=== PATIENT | female | born 1950 | race Caucasian/White ===

== ENCOUNTER 2016-08-13 15:08 | Emergency (ER) | payer MEDICARE ==
[2016-08-13] MEDS ORDERED: methylPREDNISolone Sod Succ/PF 125 MG/2 ML VIAL ONE (15:28)
[2016-08-13 15:43] LABS: #Basophils 0.1 thou/uL (0.0-0.2); #Eosinphils 0.1 thou/uL (0.0-0.7); #Lymphocytes 2.2 thou/uL (1.20-3.40); #Monocytes 0.7 thou/uL (0.11-0.59); #Neutrophils 8.5 thou/uL (1.40-6.50); %Basophils 1.1 % (0.0-1.0); %Eosinophils 1.2 % (0.0-10.0); %Monocytes 6.1 % (0.0-10.0); Hematocrit 43.1 % (36.0-47.0); Red Blood Cell (RBC) Count 4.42 mill/uL (4.20-5.40); White Blood Cell (WBC) Count 11.8 thou/uL (4.8-10.8)
[2016-08-13 16:00] LABS: ALT (SGPT) 13 U/L (0-55); AST (SGOT) 15 U/L (5-34); Alkaline Phosphatase 55 U/L (40-150); Anion Gap 12 mmol/L (10-20); BUN (Urea Nitrogen) 11 mg/dL (9.8-20.1); Bilirubin, Total 0.6 mg/dL (0.2-1.2); CK (CPK) 243 U/L (29-168); Calc. Creatinine Clearance 0 mL/min (70-130); Calcium 9.1 mg/dL (7.8-10.44); Carbon Dioxide 27 mmol/L (23-31); Chloride 108 mmol/L (98-107); Estimated GFR-MDRD 54; Protein, Total 6.9 g/dL (5.8-8.1)
[2016-08-13 16:01] LABS: Troponin I 0.013 ng/mL (< 0.028)
--- NOTE | 2016-08-13 17:07 | ERRECORD ---
[facility] EMERGENCY RECORD HPI COPD (15:28 MBRI) CHIEF COMPLAINT: Patient presents for evaluation of cough, Patient presents for evaluation of dyspnea, Patient presents for evaluation of wheezing, Patient presents for evaluation of Sent by her PMD for dyspnea. HISTORIAN: History provided by patient. LOCATION: Symptoms are generalized. QUALITY: Symptoms described as tightness, Pain is dull in nature, described as tightness reported., Described as similar to previous episodes. SEVERITY: Maximum severity of symptoms moderate, Currently symptoms are moderate. TIME COURSE: Gradual onset of symptoms, Date and time of onset was 5 days ago. ASSOCIATED WITH: No associated chest pain, Associated with cough, Associated with fever, Associated with increased inhaler use, No associated orthopnea, No associated upper respiratory infection, No associated weakness, Associated with history of chronic obstructive pulmonary disease, No associated history of congestive heart failure, Denies any other complaints. EXACERBATED BY: Patient's condition exacerbated by nothing. RELIEVED BY: Patient's condition relieved by oxygen, Patient's condition relieved by Pt uses nebs and meds at home daily and used her meds this am per pt. RISK FACTORS: No pulmonary embolism risk factors, Coronary artery disease risk factors, include smoking. ROS (15:28 MBRI) CONSTITUTIONAL: Historian reports chills, reports fatigue, reports fever, reports malaise. EYES: Historian denies eye pain, reports eye redness, denies eye discharge, reports itching. ENT: Historian denies rhinorrhea, denies sore throat. CARDIOVASCULAR: Historian denies chest pain, no radiation, Historian denies dyspnea on exertion, denies edema, denies orthopnea, denies syncope, denies palpitations. RESPIRATORY: Historian reports cough, reports shortness of breath, denies sputum, denies stridor, reports wheezing. GI: Negative gastrointestinal review of systems, Historian denies abdominal pain, denies diarrhea, denies nausea, denies vomiting. GENITOURINARY FEMALE: Historian denies dysuria, denies frequency, denies hematuria. MUSCULOSKELETAL: Historian denies injury, Denies any musculoskeletal pain. SKIN: Negative skin review of systems, Historian denies skin changes. NEUROLOGIC: Negative neurologic review of systems, Historian denies focal weakness, denies sensory changes. HEMO/LYMPHATIC: Historian denies abnormal blood clotting, denies &a-1R&a+25V*p+0X*v0234K*c202B*c15G*c2P*p-0X&a-25V&a+1R Name: Peggy Kerr : 1950 F66 MedRec: [id number] AcctNum: [id number] Prepared: Sravani Aug 16, 2016 10:53 by Interface Page 1 of 5 pMD [facility] EMERGENCY RECORD easy bruising. PAST MEDICAL HISTORY MEDICAL HISTORY: Flu vaccine not up to date, Pneumococcal vaccine up to date, Date of immunization: 2013, Past medical history includes history of hypertension, which has been treated, Patient is compliant, Past medical history includes pulmonary disease, chronic obstructive pulmonary disease. (16:35 MBRI) Flu vaccine not up to date, Pneumococcal vaccine up to date, Date of immunization: 2013, Past medical history includes history of hypertension, which has been treated, Patient is compliant, Past medical history includes pulmonary disease, chronic obstructive pulmonary disease. (16:38 LGIB) FEMALE SURGICAL HISTORY: Surgical history of cholecystectomy, laparoscopic, Surgical history of tubal ligation. (16:35 MBRI) Surgical history of cholecystectomy, laparoscopic, Surgical history of tubal ligation. (16:38 LGIB) PSYCHIATRIC HISTORY: Psychiatric history includes, anxiety, depression. (16:35 MBRI) Psychiatric history includes, anxiety, depression. (16:38 LGIB) SOCIAL HISTORY: Patient denies alcohol use, Prior drug abuse, none at present time, Patient currently uses tobacco, smokes cigarettes, daily, Patient smokes 1/2 packs per day, SMOKED FOR 50 YEARS, Lives at home, alone. (16:35 MBRI) Patient denies alcohol use, Infrequent drug use, Last used: 2 WEEKS AGO, Patient currently uses tobacco, smokes cigarettes, daily, Patient smokes 1/2 packs per day, SMOKED FOR 50 YEARS, Lives at home, alone. (16:38 LGIB) FAMILY HISTORY: Paternal history of cardiac disease:, congestive heart failure, Paternal history of diabetes:, Paternal history of hypertension:, Sibling history of diabetes:, 2 BROTHERS, Sibling history of malignancy, 2 BROTHERS. (16:35 MBRI) Paternal history of cardiac disease:, congestive heart failure, Paternal history of diabetes:, Paternal history of hypertension:, Sibling history of diabetes:, 2 BROTHERS, Sibling history of malignancy, 2 BROTHERS. (16:38 LGIB) KNOWN ALLERGIES Ceclor: Reaction: Anaphylaxis, - AND TINGLING Penicillins: Reaction: Anaphylaxis Toradol: Reaction: Anaphylaxis, Severity: Severe, Source: Patient CURRENT MEDICATIONS (16:15 LGIB) lisinopril: TABLET : Strength - 10 mg : ORAL Patient Dose: 10 mg Oral once a day (in the morning). simvastatin: TABLET : Strength - 20 mg : ORAL &a-1R&a+25V*p+0X*w8796L*c202B*c15G*c2P*p-0X&a-25V&a+1R Name: Peggy Kerr : 1950 F66 MedRec: [id number] AcctNum: [id number] Prepared: Sravani Aug 16, 2016 10:53 by Interface Page 2 of 5 pMD [facility] EMERGENCY RECORD Patient Dose: 20 mg Oral once a day (at bedtime). Cymbalta: CAPSULE,DELAYED RELEASE (ENTERIC COATED) : Strength - 20 mg : ORAL Patient Dose: 20 mg Oral 3 times a day. clonazePAM: TABLET : Strength - 0.5 mg : ORAL Patient Dose: 0.5 mg Oral 2 times a day. Symbicort: HFA AEROSOL WITH ADAPTER (GRAM) : Strength - 160 mcg-4.5 mcg/actuation : INHALATION Patient Dose: 1 puff(s) Inhaler 2 times a day. Spiriva with HandiHaler: CAPSULE, WITH INHALATION DEVICE : Strength - 18 mcg : INHALATION Patient Dose: 1 puff(s) Inhaler once a day. albuterol sulfate: VIAL, NEBULIZER (EA) : Strength - 2.5 mg/0.5 mL : INHALATION Patient Dose: 1 ea Nebulize As Needed. ProAir HFA: HFA AEROSOL WITH ADAPTER (GRAM) : Strength - 90 mcg : INHALATION Patient Dose: 2 puff(s) Inhaler every 4 hours prn. Mucinex DM: TABLET,EXTENDED RELEASE MULTIPHASE 12 HR : Strength - 1,200 mg-60 mg : ORAL Patient Dose: 1 tab(s) Oral As Needed. Medrol (Robert): TABLET, DOSE PACK : Strength - 4 mg : ORAL Patient Dose: 1 tab(s) Oral once a day. VITAL SIGNS VITAL SIGNS: BP: 142/79, Pulse: 95, Resp: 24, O2 sat: 95 on 2L Oxygen, Time: 08/13/2016 15:09. (15:09 LGIB) Temp: 98.3 (Oral), Time: 08/13/2016 16:13. (16:13 LGIB) BP: 148/96, Pulse: 100, Resp: 22, Temp: 98.2 (Oral), Pain: 0, O2 sat: 94 on 2L Oxygen, Time: 08/13/2016 16:23. (16:23 LSMI) BP: 144/84, Pulse: 94, Resp: 20, Temp: 98.2 (Oral), Pain: 0, O2 sat: 96 on 2L Oxygen, Time: 08/13/2016 16:40. (16:40 LSMI) PHYSICAL EXAM (15:28 MBRI) CONSTITUTIONAL: Vital Signs Reviewed, Normal pulse oximetry, Patient appears non toxic, Patient appears pain free, Patient, oriented to person, oriented to place, responsive to verbal stimuli, Nursing notes reviewed, frail appearing elderly female. HEAD: Head exam included findings of head atraumatic, normocephalic. EYES: Eye exam included findings of eyelids normal to inspection, Pupils equally round and reactive to light, Extraocular muscles intact. ENT: Ear exam normal, external ear normal, tympanic membranes normal, Pharynx exam normal. &a-1R&a+25V*p+0X*w0473J*c202B*c15G*c2P*p-0X&a-25V&a+1R Name: Peggy Kerr : 1950 F66 MedRec: [id number] AcctNum: [id number] Prepared: SatAug 16, 2016 10:53 by Interface Page 3 of 5 pMD [facility] EMERGENCY RECORD NECK: Neck exam normal, no cervical adenopathy, no tenderness. RESPIRATORY CHEST: Respiratory exam included findings of no respiratory distress, Breath sounds clear, No wheezing, No rales, No rhonchi, Breath sounds diminished, to bilateral upper lobes, to bilateral lower lobes, Chest exam included findings of chest movement symmetrical, Chest expansion equal, no tenderness. CARDIOVASCULAR: Cardiovascular exam included findings of, rate tachycardic, rhythm regular, Heart sounds normal, normal S1, normal S2, no murmurs, Carotids normal, Pedal pulses normal. ABDOMEN FEMALE: Abdominal exam included findings of abdomen nontender, Bowel sounds normal, no peritoneal signs, no rigidity, no guarding, no rebound. BACK: Back exam included findings of normal inspection, no tenderness. UPPER EXTREMITY: Upper extremity exam included findings of inspection normal, Radial pulse normal, no cyanosis, no clubbing, no edema. LOWER EXTREMITY: Lower extremity exam included findings of inspection normal, femoral pulses normal, no cyanosis, no clubbing, no edema, no tenderness noted. NEURO: Neuro exam findings include patient oriented to, person, place, Speech normal, Cranial nerves intact, no focal motor deficits, no focal sensory deficits. SKIN: Skin exam included findings of skin warm, dry, and normal in color. EKG INTERPRETATION (15:39 MBRI) 12 LEAD EKG INTERPRETATION: Interpretation: normal EKG, Conduction normal, ST segments normal, T waves normal, Rudyard normal, Other findings include:, age undetermined ant infarct, Clinical impression: Normal EKG. RADIOLOGYINTERPRETATION (16:29 MBRI) CHEST: Chest films negative, no infiltrates. FUEL DISTRIBUTION SYSTEM OPERATOR: Preliminary review of x-rays by, ED Physician. MEDICATION ADMINISTRATION SUMMARY Drug Name: *DuoNeb, Dose Ordered: 3 mL, Route: Nebulize, Status: Given, Time: 16:10 08/13/2016, Drug Name: methylPREDNISolone sodium succ injection, Dose Ordered: 125 mg, Route: IV Push, Status: Given, Time: 15:43 08/13/2016, Drug Name: *DuoNeb, Dose Ordered: 3 mL, Route: Nebulize, Status: Given, Time: 15:30 08/13/2016, *Additional information available in notes, Detailed record available in Medication Service section. DOCTOR NOTES RE-EVALUATION: Routine re-evaluation, after administration of &a-1R&a+25V*p+0X*u7813V*c202B*c15G*c2P*p-0X&a-25V&a+1R Name: Peggy Kerr : 1950 F66 MedRec: [id number] AcctNum: [id number] Prepared: Sravani Aug 16, 2016 10:53 by Interface Page 4 of 5 pMD [facility] EMERGENCY RECORD bronchodilator nebulizer treatments, The patient's condition has improved, increased air movement with decreased wheezing noted. Still some exp wheezing noted in the upper lung yanez. (15:50 MBRI) TEXT: After re-evaluation the patient appears to be resting comfortably. No further resp distress and lung exam is improved. No impending resp failure or airway issues are present at this time. I have discussed the continued treatment with the patient and family and have answered questions. I have discussed the strict reasons for return and follow-up and medication needs have been addressed. The patient is stable for d/c home at this time. (16:30 MBRI) PROBLEM LIST No recorded problems DIAGNOSIS (16:32 MBRI) FINAL: PRIMARY: COPD WITH ACUTE EXACERBATION. PRESCRIPTION (16:33 MBRI) albuterol: AEROSOL (GM) : 90 mcg : INHALATION : Quantity: 1 Unit: inhalation Route: INHALATION Schedule: every 4 hours prn Dispense: 1 May substitute. Refills: No Refills . NOTES: No refills. doxycycline hyclate oral: CAPSULE (HARD, SOFT, ETC.) : 100 mg : ORAL : Quantity: 1 Unit: tab(s) Route: ORAL Schedule: 2 times a day Dispense: 20 May substitute. Refills: No Refills . NOTES: this medication will render your control pills ineffective while you are on them. Use other forms of contraception. No refills. Mucinex DM: TABLET,EXTENDED RELEASE MULTIPHASE 12 HR : 1,200 mg-60 mg : ORAL : Quantity: 1 Unit: tab(s) Route: ORAL Schedule: every 12 hours Dispense: 20 May substitute. Refills: No Refills . NOTES: No refills. predniSONE oral: TABLET : 20 mg : ORAL : Quantity: 3 Unit: tab(s) Route: ORAL Schedule: once a day Dispense: 12 May substitute. Refills: No Refills . NOTES: ^s=No refills No refills. DISPOSITION PATIENT: Disposition Type: Discharge, Disposition: *Discharge Home, Condition: Improved. (16:32 MBRI) Patient left the department. (16:52 LGIB) [place]: LGIB=CADEN Fontana, Emelia LSMI=ROSEANN Wood Leah MBRI=DO Rosas Matthew &a-1R&a+25V*p+0X*[id number]*c202B*c15G*c2P*p-0X&a-25V&a+1R Name: Peggy Kerr : 1950 F66 MedRec: [id number] AcctNum: [id number] Prepared: [facility] Aug 16, 2016 10:53 by Interface Page 5 of 5 pMD MTDD
--- NOTE | 2016-08-13 17:10 | PICIS ---
[facility] EMERGENCY RECORD TRIAGE (SatAug 13, 2016 15:17 LGIB) TRIAGE NOTES: pcp sent over for weakness and diff breathing. (SatAug 13, 2016 15:17 LGIB) PATIENT: NAME: Peggy Kerr, AGE: 66, GENDER: female, : Sat1950, TIME OF GREET: SatAug 13, 2016 15:09, PREFERRED LANGUAGE: Syriac, ETHNICITY: Not or , ECODE BILLING MAP: [facility], SSN: [id number], Zip Code: [address], KG WEIGHT: [phone], PHONE: , , , PERSON ID: [id number], PAYMENT: [employer], PCP: DO OLIVO KRISTEL. (SatAug 13, 2016 15:17 LGIB) COMPLAINT: diff breathing, weak. (SatAug 13, 2016 15:17 LGIB) ADMISSION: URGENCY: 2 Emergent, ADMISSION SOURCE: Home, TRANSPORT: CAR, BED: ER -02. (SatAug 13, 2016 15:17 LGIB) SIRS SCORING: Heart Rate 55-109 (0), Temp range 96.8-101.1 (0), respiratory rate 12-24 (0), Mental Status altered: no (0), Total SIRS Score 0. (16:14 LGIB) PROVIDERS: TRIAGE NURSE: Emelia Fontana RN. (SatAug 13, 2016 15:17 LGIB) PREVIOUS VISIT ALLERGIES: Ceclor, Penicillins, Toradol. (SatAug 13, 2016 15:17 LGIB) Ceclor, Penicillins, Toradol. (16:38 LGIB) KNOWN ALLERGIES Ceclor: Reaction: Anaphylaxis, - AND TINGLING Penicillins: Reaction: Anaphylaxis Toradol: Reaction: Anaphylaxis, Severity: Severe, Source: Patient CURRENT MEDICATIONS (16:15 LGIB) lisinopril: TABLET : Strength - 10 mg : ORAL Patient Dose: 10 mg Oral once a day (in the morning). simvastatin: TABLET : Strength - 20 mg : ORAL Patient Dose: 20 mg Oral once a day (at bedtime). Cymbalta: CAPSULE,DELAYED RELEASE (ENTERIC COATED) : Strength - 20 mg : ORAL Patient Dose: 20 mg Oral 3 times a day. clonazePAM: TABLET : Strength - 0.5 mg : ORAL Patient Dose: 0.5 mg Oral 2 times a day. Symbicort: HFA AEROSOL WITH ADAPTER (GRAM) : Strength - 160 mcg-4.5 mcg/actuation : INHALATION Patient Dose: 1 puff(s) Inhaler 2 times a day. Spiriva with HandiHaler: CAPSULE, WITH INHALATION DEVICE : Strength - 18 mcg : INHALATION Patient Dose: 1 puff(s) Inhaler once a day. albuterol sulfate: VIAL, NEBULIZER (EA) : Strength - 2.5 mg/0.5 mL : INHALATION Patient Dose: 1 ea Nebulize As Needed. &a-1R&a+25V*p+0X*j5520U*c202B*c15G*c2P*p-0X&a-25V&a+1R Name: Peggy Kerr : 1950 F66 MedRec: [id number] AcctNum: [id number] Prepared: [facility] Aug 16, 2016 10:53 by Interface Page 1 of 13 pMD [facility] EMERGENCY RECORD ProAir HFA: HFA AEROSOL WITH ADAPTER (GRAM) : Strength - 90 mcg : INHALATION Patient Dose: 2 puff(s) Inhaler every 4 hours prn. Mucinex DM: TABLET,EXTENDED RELEASE MULTIPHASE 12 HR : Strength - 1,200 mg-60 mg : ORAL Patient Dose: 1 tab(s) Oral As Needed. Medrol (Robert): TABLET, DOSE PACK : Strength - 4 mg : ORAL Patient Dose: 1 tab(s) Oral once a day. VITAL SIGNS VITAL SIGNS: BP: 142/79, Pulse: 95, Resp: 24, O2 sat: 95 on 2L Oxygen, Time: 08/13/2016 15:09. (15:09 LGIB) Temp: 98.3 (Oral), Time: 08/13/2016 16:13. (16:13 LGIB) BP: 148/96, Pulse: 100, Resp: 22, Temp: 98.2 (Oral), Pain: 0, O2 sat: 94 on 2L Oxygen, Time: 08/13/2016 16:23. (16:23 LSMI) BP: 144/84, Pulse: 94, Resp: 20, Temp: 98.2 (Oral), Pain: 0, O2 sat: 96 on 2L Oxygen, Time: 08/13/2016 16:40. (16:40 LSMI) NURSING ASSESSMENT: RESPIRATORY /CHEST (15:20 LGIB) CONSTITUTIONAL: Complex assessment performed, Patient arrives, via hospital wheelchair, Gait steady, History obtained from patient, Patient cooperative, Patient alert, Oriented to person, place and time, Skin warm, Skin dry, Skin normal in color, Mucous membranes pink, Mucous membranes moist, Patient is well-groomed, Patient complains of diff breathing, weak, sent by PCP for weakness and diff breathing. PAIN: Patient rates pain as 0 out of 10. RESPIRATORY/CHEST: Lungs auscultated, Breath sounds diminished, to bilateral upper lobes, to the right middle lobe, to bilateral lower lobes, Respirations regular, Converses, in short phrases, Neck and chest exam findings include trachea midline, Chest expansion equal, Chest movement symmetrical, no signs of distress, no retractions noted, no cyanosis, no associated cough noted, no associated fever. ENT: Ear assessment findings include ear normal to inspection, Nasal assessment findings include nose normal to inspection, Mouth and throat assessment findings include mouth inspection normal. NURSING PROCEDURE: [facility] (15:20 LGIB) [facility] FOR[facility]: Patient placed on senior care assistant, Patient placed on non-invasive blood pressure monitor, Patient placed on continuous pulse oximetry. NURSING PROCEDURE: COMMUNICATIONS (16:14 LSMI) COMMUNICATIONS: Critical lab value, received at 1614, received from Larissa GAITAN, Critical lab result: CKMB 8.8, given to DR ROSAS, results read back and verified. &a-1R&a+25V*p+0X*m1639U*c202B*c15G*c2P*p-0X&a-25V&a+1R Name: Peggy Kerr : 1950 F66 MedRec: [id number] AcctNum: [id number] Prepared: Sravani Aug 16, 2016 10:53 by Interface Page 2 of 13 pMD [facility] EMERGENCY RECORD NURSING PROCEDURE: DISCHARGE NOTE (16:45 LSMI) DISCHARGE: Patient discharged to home, in a wheelchair, driving self, unaccompanied, Summary of Care printed/ provided, Transition record given to patient, Discharge instructions given to patient, Simple or moderate discharge teaching performed, Prescriptions given and instructions on side effects given. NURSING PROCEDURE: IV PATIENT IDENITIFIER: Patient actively involved in identification process, Patient's identity verified by patient stating name, Patient's identity verified by patient stating date, Patient's identity verified by hospital ID bracelet. (15:25 LSMI) Patient actively involved in identification process, Patient's identity verified by patient stating name, Patient's identity verified by patient stating date, Patient's identity verified by hospital ID bracelet. (16:35 LSMI) IV SITE 1: IV therapy indicated for hydration, IV established, to the right wrist, using a 20 gauge catheter, in one attempt, Saline lock established, Flushed with normal saline (mls): 10, Labs drawn at time of placement, labeled in the presence of the patient and sent to lab, Blood cultures drawn at time of placement, labeled in the presence of the patient and sent to lab. (15:25 LSMI) FOLLOW-UP SITE 1: IV discontinued, due to patient being discharged. (16:35 LSMI) NURSING PROCEDURE: RESPIRATORY INTERVENTIONS PATIENT IDENTIFIER: Patient actively involved in identification process, Patient's identity verified by patient stating name, Patient's identity verified by patient stating date, Patient's identity verified by hospital ID bracelet. (15:30 LSMI) RESPIRATORY INTERVENTIONS: Respiratory interventions indicated for respiratory distress, Pre-intervention oxygen saturation 94%, single pulse oximetry reading, Patient given ALBUTEROL with ATROVENT, Single dose nebulizer. (15:30 LSMI) FOLLOW-UP: After procedure, oxygen saturation 97%, on 2L, After procedure, breath sounds diminished, to bilateral upper lobes, to bilateral lower lobes. (16:00 LSMI) ORDER DETAILS Order Name: B type Natriuretic Peptide, Status: Active, Time: 15:22 08/13/2016, User: ASHVIN, - Ordered for: DO Rosas Matthew, - Entered by: DO Rosas Matthew - SatAug 13, 2016 15:22, - Quantity: 1, Order Name: [facility] ED, Status: Done, Time: 15:37 08/13/2016, User: MARINO, - Ordered for: DO Rosas Matthew, - Entered by: DO Rosas Matthew - SatAug 13, 2016 15:22, &a-1R&a+25V*p+0X*d4366S*c202B*c15G*c2P*p-0X&a-25V&a+1R Name: Peggy Kerr : 1950 F66 MedRec: [id number] AcctNum: [id number] Prepared: Sravani Aug 16, 2016 10:53 by Interface Page 3 of 13 pMD [facility] EMERGENCY RECORD - Quantity: 1, Order Name: Cardiac Profile w/CKMB & Troponin - I, Status: Active, Time: 15:22 08/13/2016, User: MBRI, - Ordered for: DO Rosas Matthew, - Entered by: DO Rosas Matthew - [facility] Aug 13, 2016 15:22, - Quantity: 1, Order Name: CBC with Differential, Status: Active, Time: 15:22 08/13/2016, User: MBRI, - Ordered for: DO Rosas Matthew, - Entered by: DO Rosas Matthew - [facility]ace Aug 13, 2016 15:22, - Quantity: 1, Order Name: CK (CPK), Status: Active, Time: 15:22 08/13/2016, User: MBRI, - Ordered for: DO Rosas Matthew, - Entered by: DO Rosas Matthew - [facility]ace Aug 13, 2016 15:22, - Quantity: 1, Order Name: Comprehensive Metabolic Panel, Status: Active, Time: 15:22 08/13/2016, User: MBRI, - Ordered for: DO Rosas Matthew, - Entered by: DO Rosas Matthew - SatAug 13, 2016 15:22, - Quantity: 1, Order Name: Culture, Blood, Status: Active, Time: 15:22 08/13/2016, User: MBRI, - Ordered for: DO Rosas Matthew, - Entered by: DO Rosas Matthew - [facility]ace Aug 13, 2016 15:22, - Quantity: 1, Order Name: EKG 12 Lead in Emergency Room, Status: Active, Time: 15:24 08/13/2016, User: MBRI, - Ordered for: DO Rosas Matthew, - Entered by: DO Rosas Matthew - SatAug 13, 2016 15:24, - Quantity: 1, Order Name: ERRT * Smal Vol Neb Initial Trmt, Status: Active, Time: 15:22 08/13/2016, User: MBRI, - Ordered for: DO Rosas Matthew, - Entered by: DO Rosas Matthew - SatAug 13, 2016 15:22, - Quantity: 1, Order Name: ERRT Small Vol Neb Sub Trmt, Status: Active, Time: 15:51 08/13/2016, User: MBRI, - Ordered for: DO Rosas Matthew, - Entered by: DO Rosas Matthew - SatAug 13, 2016 15:51, - Quantity: 1, Order Name: ERRT Oxygen Usage ER, Status: Active, Time: 15:22 08/13/2016, User: MBRI, - Ordered for: DO Rosas Matthew, - Entered by: DO Rosas Matthew - SatAug 13, 2016 15:22, - Quantity: 1, Order Name: ERRT Pulse Oximeter ER, Status: Active, Time: 15:22 08/13/2016, User: MBRI, - Ordered for: DO Rosas Matthew, - Entered by: DO Rosas Matthew - SatAug 13, 2016 15:22, &a-1R&a+25V*p+0X*a5805X*c202B*c15G*c2P*p-0X&a-25V&a+1R Name: Peggy Kerr : 1950 F66 MedRec: [id number] AcctNum: [id number] Prepared: SatAug 16, 2016 10:53 by Interface Page 4 of 13 pMD [facility] EMERGENCY RECORD - Quantity: 1, Order Name: Influenza A&B Ag Screen, Status: Active, Time: 15:24 08/13/2016, User: MBRI, - Ordered for: DO Rosas Matthew, - Entered by: DO Rosas Matthew - [facility] Aug 13, 2016 15:24, - Quantity: 1, Order Name: SALINE LOCK, Status: Done, Time: 15:39 08/13/2016, User: LSMI, - Ordered for: DO Rosas Matthew, - Entered by: DO Rosas Matthew - SatAug 13, 2016 15:22, - Quantity: 1, Order Name: XR Chest 1 View Portable, Status: Active, Time: 15:22 08/13/2016, User: MBJEREMIE, - Ordered for: DO Rosas Matthew, - Entered by: DO Rosas Matthew - SatAug 13, 2016 15:22, - Quantity: 1. MEDICATION ADMINISTRATION SUMMARY Drug Name: *DuoNeb, Dose Ordered: 3 mL, Route: Nebulize, Status: Given, Time: 16:10 08/13/2016, Drug Name: methylPREDNISolone sodium succ injection, Dose Ordered: 125 mg, Route: IV Push, Status: Given, Time: 15:43 08/13/2016, Drug Name: *DuoNeb, Dose Ordered: 3 mL, Route: Nebulize, Status: Given, Time: 15:30 08/13/2016, *Additional information available in notes, Detailed record available in Medication Service section. MEDICATION SERVICE DuoNeb: Order: DuoNeb (ipratropium bromide/albuterol sulfate) - Dose: 3 mL : Nebulize Notes: (0.5mg Ipratropium Santa Claus/3mg Albuterol Sulfate = 3ml) Ordered by: Greyson Rosas DO Entered by: Greyson Rosas DO SatAug 13, 2016 15:24 Documented as given by: Annmarie Wood LVN SatAug 13, 2016 15:30 Patient, Medication, Dose, Route and Time verified prior to administration. Site: Medication administered via Hand-held nebulizer, Correct patient, time, route, dose and medication confirmed prior to administration, Patient advised of actions and side-effects prior to administration, Allergies confirmed and medications reviewed prior to administration, Patient in position of comfort, Side rails up, Cart in lowest position, Call light in reach. : Follow Up : Decreased symptoms. (16:00 LGIB) DuoNeb: Order: DuoNeb (ipratropium bromide/albuterol sulfate) - Dose: 3 mL : Nebulize Notes: (0.5mg Ipratropium Santa Claus/3mg Albuterol Sulfate = 3ml) Ordered by: Greyson Rosas DO Entered by: Greyson Rosas DO SatAug 13, 2016 15:51 , Acknowledged by: Annmarie Wood LVN SatAug 13, 2016 15:58 Documented as given by: Emelia Fontana RN SatAug 13, 2016 16:10 &a-1R&a+25V*p+0X*o1103Q*c202B*c15G*c2P*p-0X&a-25V&a+1R Name: Peggy Kerr : 1950 F66 MedRec: [id number] AcctNum: [id number] Prepared: SatAug 16, 2016 10:53 by Interface Page 5 of 13 pMD [facility] EMERGENCY RECORD Patient, Medication, Dose, Route and Time verified prior to administration. Site: Medication administered via Hand-held nebulizer, With air, Correct patient, time, route, dose and medication confirmed prior to administration, Patient advised of actions and side-effects prior to administration, Allergies confirmed and medications reviewed prior to administration, Patient in position of comfort, Side rails up, Cart in lowest position. : Follow Up : Decreased symptoms. (16:20 LGIB) methylPREDNISolone sodium succ injection: Order: methylPREDNISolone sodium succ injection (methylprednisolone sod succ) - Dose: 125 mg : IV Push Ordered by: Greyson Rosas DO Entered by: Greyson Rosas DO SatAug 13, 2016 15:25 , Acknowledged by: Emelia Fontana RN SatAug 13, 2016 15:27 Documented as given by: Annmarie Wood LVN SatAug 13, 2016 15:43 Patient, Medication, Dose, Route and Time verified prior to administration. IV SITE #1 IVP, initial medication, Slowly, Catheter placement confirmed via flush prior to administration, IV site without signs or symptoms of infiltration during medication administration, No swelling during administration, No drainage during administration, IV flushed after administration, Correct patient, time, route, dose and medication confirmed prior to administration, Patient advised of actions and side-effects prior to administration, Allergies confirmed and medications reviewed prior to administration, Patient in position of comfort, Side rails up, Cart in lowest position, Call light in reach. HPI COPD (15:28 MBRI) CHIEF COMPLAINT: Patient presents for evaluation of cough, Patient presents for evaluation of dyspnea, Patient presents for evaluation of wheezing, Patient presents for evaluation of Sent by her PMD for dyspnea. HISTORIAN: History provided by patient. LOCATION: Symptoms are generalized. QUALITY: Symptoms described as tightness, Pain is dull in nature, described as tightness reported., Described as similar to previous episodes. SEVERITY: Maximum severity of symptoms moderate, Currently symptoms are moderate. TIME COURSE: Gradual onset of symptoms, Date and time of onset was 5 days ago. ASSOCIATED WITH: No associated chest pain, Associated with cough, Associated with fever, Associated with increased inhaler use, No associated orthopnea, No associated upper respiratory infection, No associated weakness, Associated with history of chronic obstructive pulmonary disease, No associated history of congestive heart failure, Denies any other complaints. EXACERBATED BY: Patient's condition exacerbated by nothing. RELIEVED BY: &a-1R&a+25V*p+0X*p5821Z*c202B*c15G*c2P*p-0X&a-25V&a+1R Name: Peggy Kerr : 1950 F66 MedRec: [id number] AcctNum: [id number] Prepared: Sravani Aug 16, 2016 10:53 by Interface Page 6 of 13 pMD [facility] EMERGENCY RECORD Patient's condition relieved by oxygen, Patient's condition relieved by Pt uses nebs and meds at home daily and used her meds this am per pt. RISK FACTORS: No pulmonary embolism risk factors, Coronary artery disease risk factors, include smoking. ROS (15:28 MBRI) CONSTITUTIONAL: Historian reports chills, reports fatigue, reports fever, reports malaise. EYES: Historian denies eye pain, reports eye redness, denies eye discharge, reports itching. ENT: Historian denies rhinorrhea, denies sore throat. CARDIOVASCULAR: Historian denies chest pain, no radiation, Historian denies dyspnea on exertion, denies edema, denies orthopnea, denies syncope, denies palpitations. RESPIRATORY: Historian reports cough, reports shortness of breath, denies sputum, denies stridor, reports wheezing. GI: Negative gastrointestinal review of systems, Historian denies abdominal pain, denies diarrhea, denies nausea, denies vomiting. GENITOURINARY FEMALE: Historian denies dysuria, denies frequency, denies hematuria. MUSCULOSKELETAL: Historian denies injury, Denies any musculoskeletal pain. SKIN: Negative skin review of systems, Historian denies skin changes. NEUROLOGIC: Negative neurologic review of systems, Historian denies focal weakness, denies sensory changes. HEMO/LYMPHATIC: Historian denies abnormal blood clotting, denies easy bruising. PAST MEDICAL HISTORY MEDICAL HISTORY: Flu vaccine not up to date, Pneumococcal vaccine up to date, Date of immunization: 2013, Past medical history includes history of hypertension, which has been treated, Patient is compliant, Past medical history includes pulmonary disease, chronic obstructive pulmonary disease. (16:35 MBRI) Flu vaccine not up to date, Pneumococcal vaccine up to date, Date of immunization: 2013, Past medical history includes history of hypertension, which has been treated, Patient is compliant, Past medical history includes pulmonary disease, chronic obstructive pulmonary disease. (16:38 LGIB) FEMALE SURGICAL HISTORY: Surgical history of cholecystectomy, laparoscopic, Surgical history of tubal ligation. (16:35 MBRI) Surgical history of cholecystectomy, laparoscopic, Surgical history of tubal ligation. (16:38 LGIB) PSYCHIATRIC HISTORY: Psychiatric history includes, anxiety, depression. (16:35 MBRI) Psychiatric history includes, anxiety, depression. (16:38 &a-1R&a+25V*p+0X*m7111P*c202B*c15G*c2P*p-0X&a-25V&a+1R Name: Peggy Kerr : 1950 F66 MedRec: [id number] AcctNum: [id number] Prepared: [facility] Aug 16, 2016 10:53 by Interface Page 7 of 13 pMD [facility] EMERGENCY RECORD LGIB) SOCIAL HISTORY: Patient denies alcohol use, Prior drug abuse, none at present time, Patient currently uses tobacco, smokes cigarettes, daily, Patient smokes 1/2 packs per day, SMOKED FOR 50 YEARS, Lives at home, alone. (16:35 MBRI) Patient denies alcohol use, Infrequent drug use, Last used: 2 WEEKS AGO, Patient currently uses tobacco, smokes cigarettes, daily, Patient smokes 1/2 packs per day, SMOKED FOR 50 YEARS, Lives at home, alone. (16:38 LGIB) FAMILY HISTORY: Paternal history of cardiac disease:, congestive heart failure, Paternal history of diabetes:, Paternal history of hypertension:, Sibling history of diabetes:, 2 BROTHERS, Sibling history of malignancy, 2 BROTHERS. (16:35 MBRI) Paternal history of cardiac disease:, congestive heart failure, Paternal history of diabetes:, Paternal history of hypertension:, Sibling history of diabetes:, 2 BROTHERS, Sibling history of malignancy, 2 BROTHERS. (16:38 LGIB) PHYSICAL EXAM (15:28 MBRI) CONSTITUTIONAL: Vital Signs Reviewed, Normal pulse oximetry, Patient appears non toxic, Patient appears pain free, Patient, oriented to person, oriented to place, responsive to verbal stimuli, Nursing notes reviewed, frail appearing elderly female. HEAD: Head exam included findings of head atraumatic, normocephalic. EYES: Eye exam included findings of eyelids normal to inspection, Pupils equally round and reactive to light, Extraocular muscles intact. ENT: Ear exam normal, external ear normal, tympanic membranes normal, Pharynx exam normal. NECK: Neck exam normal, no cervical adenopathy, no tenderness. RESPIRATORY CHEST: Respiratory exam included findings of no respiratory distress, Breath sounds clear, No wheezing, No rales, No rhonchi, Breath sounds diminished, to bilateral upper lobes, to bilateral lower lobes, Chest exam included findings of chest movement symmetrical, Chest expansion equal, no tenderness. CARDIOVASCULAR: Cardiovascular exam included findings of, rate tachycardic, rhythm regular, Heart sounds normal, normal S1, normal S2, no murmurs, Carotids normal, Pedal pulses normal. ABDOMEN FEMALE: Abdominal exam included findings of abdomen nontender, Bowel sounds normal, no peritoneal signs, no rigidity, no guarding, no rebound. BACK: Back exam included findings of normal inspection, no tenderness. UPPER EXTREMITY: Upper extremity exam included findings of inspection normal, Radial pulse normal, no cyanosis, no clubbing, no edema. &a-1R&a+25V*p+0X*p2435I*c202B*c15G*c2P*p-0X&a-25V&a+1R Name: Peggy Kerr : 1950 F66 MedRec: [id number] AcctNum: [id number] Prepared: Sravani Aug 16, 2016 10:53 by Interface Page 8 of 13 pMD [facility] EMERGENCY RECORD LOWER EXTREMITY: Lower extremity exam included findings of inspection normal, femoral pulses normal, no cyanosis, no clubbing, no edema, no tenderness noted. NEURO: Neuro exam findings include patient oriented to, person, place, Speech normal, Cranial nerves intact, no focal motor deficits, no focal sensory deficits. SKIN: Skin exam included findings of skin warm, dry, and normal in color. LAB INTERPRETATION (16:29 MBRI) INTERPRETATION: I reviewed the lab results. EVENTS TRANSFER: Triage to Emergency Emergency Room -02. (15:17 LGIB) Removed from Emergency Emergency Room -02. (16:52 LGIB) RADIOLOGYINTERPRETATION (16:29 MBRI) CHEST: Chest films negative, no infiltrates. 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 EKG INTERPRETATION (15:39 MBRI) 12 LEAD EKG INTERPRETATION: Interpretation: normal EKG, Conduction normal, ST segments normal, T waves normal, [place] normal, Other findings include:, age undetermined ant infarct, Clinical impression: Normal EKG. O2SAT INTERPRETATION (15:30 MBRI) O2SAT: Oxygen saturation 95%, on 2L, via nasal cannula, Oxygen saturation interpretation: Normal, Intervention required: patient observed, Intervention required: Oxygen administration. DOCTOR NOTES RE-EVALUATION: Routine re-evaluation, after administration of bronchodilator nebulizer treatments, The patient's condition has improved, increased air movement with decreased wheezing noted. Still some exp wheezing noted in the upper lung yanez. (15:50 MBRI) TEXT: After re-evaluation the patient appears to be resting comfortably. No further resp distress and lung exam is improved. No impending resp failure or airway issues are present at this time. I have discussed the continued treatment with the patient and family and have answered questions. I have discussed the strict reasons for return and follow-up and medication needs have been addressed. The patient is stable for d/c home at this time. (16:30 MBRI) PROBLEM LIST No recorded problems DIAGNOSIS (16:32 MBRI) FINAL: PRIMARY: COPD WITH ACUTE EXACERBATION. &a-1R&a+25V*p+0X*b0719I*c202B*c15G*c2P*p-0X&a-25V&a+1R Name: Peggy Kerr : 1950 F66 MedRec: [id number] AcctNum: [id number] Prepared: Sravani Aug 16, 2016 10:53 by Interface Page 9 of 13 pMD [facility] EMERGENCY RECORD DISPOSITION PATIENT: Disposition Type: Discharge, Disposition: *Discharge Home, Condition: Improved. (16:32 MBRI) Patient left the department. (16:52 LGIB) INSTRUCTION (16:34 MBRI) DISCHARGE: COPD FLARE. FOLLOWUP: DO OLIVO KRISTEL, [facility], [address] [place] [id number], [phone], Follow up with Primary Care Physician in 5 days. SPECIAL: Please return for any further issues or concerns, we would be happy to see you. We hope you feel better soon. Follow-up with your PCP. PRESCRIPTION (16:33 MBRI) albuterol: AEROSOL (GM) : 90 mcg : INHALATION : Quantity: 1 Unit: inhalation Route: INHALATION Schedule: every 4 hours prn Dispense: 1 May substitute. Refills: No Refills . NOTES: No refills. doxycycline hyclate oral: CAPSULE (HARD, SOFT, ETC.) : 100 mg : ORAL : Quantity: 1 Unit: tab(s) Route: ORAL Schedule: 2 times a day Dispense: 20 May substitute. Refills: No Refills . NOTES: this medication will render your control pills ineffective while you are on them. Use other forms of contraception. No refills. Mucinex DM: TABLET,EXTENDED RELEASE MULTIPHASE 12 HR : 1,200 mg-60 mg : ORAL : Quantity: 1 Unit: tab(s) Route: ORAL Schedule: every 12 hours Dispense: 20 May substitute. Refills: No Refills . NOTES: No refills. predniSONE oral: TABLET : 20 mg : ORAL : Quantity: 3 Unit: tab(s) Route: ORAL Schedule: once a day Dispense: 12 May substitute. Refills: No Refills . NOTES: ^s=No refills No refills. IMAGING *DISCHARGE INSTRUCTIONS RECEIPT: Image captured from scanner. (17:10 LSMI) *SUPPLY CHARGE SHEET: Image captured from scanner. (17:11 LSMI) ADMIN (SatAug 16, 2016 10:47 MBRI) DIGITAL SIGNATURE: RalphDO Matthew. RESULTS (16:26 MBRI) LABORATORY: Cardiac Profile w/CKMB & TropI Collection DT: Sat &a-1R&a+25V*p+0X*c2809L*c202B*c15G*c2P*p-0X&a-25V&a+1R Name: Peggy Kerr : 1950 F66 MedRec: [id number] AcctNum: [id number] Prepared: SatAug 16, 2016 10:53 by Interface Page 10 of 13 pMD [facility] EMERGENCY RECORD 2016 15:38, Critical Call CKMBM CALLED TO CARA , @1612 BY LAB.DRV , *CKMB 8.8 - *H ng/mL, Range (0-6.6), Critical value!, Troponin I 0.013 ng/mL, Range (< 0.028), Reference Range , 0.00 - 0.028 ng/mL Negative 0.029 - 0.29 ng/mL , Indeterminate Greater or Equal to 0.3 ng/mL Strongly suggests [place] , . MICROBIOLOGY: Influenza A&B Ag Screen: [id number] Collection DT: SatAug 13, 2016 15:44, See comment below , @ ER ROOM#: [id number] Source: Nasal swab Spec Desc: , Influenza A Antigen: NEGATIVE for the , presence of , INFLUENZA A Antigen , Influenza B Antigen: NEGATIVE for the , presence of , INFLUENZA B Antigen , The rapid Flu A&B test can distinguish between influenza A , Influenza A&B Ag Screen See comment below , and B viruses, but it does not differentiate influenza , Influenza A&B Ag Screen See comment below , subtypes. , Influenza A&B Ag Screen See comment below , Influenza A&B Ag Screen See comment below , Influenza A&B Ag Screen See comment below , Influenza A&B Ag Screen See comment below , characteristics of this device with human specimens infected , Influenza A&B Ag Screen See comment below , with the 2008 H1N1 influenza virus have not been , Influenza A&B Ag Screen See comment below , established. For example: this test cannot distinguish , Influenza A&B Ag Screen See comment below , influenza infections caused by novel H1N1 influenza A , Influenza A&B Ag Screen See comment below , viruses versus seasonal influenza A viruses. , Influenza A&B Ag Screen See comment below , , Influenza A&B Ag Screen See comment below , A negative result does not exclude influenza virus , Influenza A&B Ag Screen See comment below , infection; therefore, if more conclusive testing is desired, , Influenza A&B Ag Screen See comment below , follow up confirmatory testing is warranted., Influenza A&B Ag Screen See comment below . LABORATORY: B type Natriuretic Peptide Collection DT: SatAug 13, 2016 15:38, B type Natriuretic Peptide 54.2 pg/mL, Range (0-100). &a-1R&a+25V*p+0X*n3360G*c202B*c15G*c2P*p-0X&a-25V&a+1R Name: Peggy Kerr : 1950 F66 MedRec: [id number] AcctNum: [id number] Prepared: [facility] Aug 16, 2016 10:53 by Interface Page 11 of 13 pMD [facility] EMERGENCY RECORD CK (CPK) Collection DT: SatAug 13, 2016 15:38, *CK (CPK) 243 - H U/L, Range (29-168). Comprehensive Metabolic Panel Collection DT: SatAug 13, 2016 15:38, Sodium 143 mmol/L, Range (136-145), Potassium 3.6 mmol/L, Range (3.5-5.1), *Chloride 108 - H mmol/L, Range (98-107), Carbon Dioxide 27 mmol/L, Range (23-31), Anion Gap 12 mmol/L, Range (10-20), BUN (Urea Nitrogen) 11 mg/dL, Range (9.8-20.1), Creatinine 1.03 mg/dL, Range (0.6-1.1), Estimated GFR-MDRD 54 , Reference Range for Estimated GFR: Greater than 90, mL/min/1.73 m2 NOTE: The MDRD equation has not been validated for use, with the elderly (over 70 years of age), women, patients with, serious comorbid condition or persons with extremes of body size, muscle, mass, or nutritional status. , *Glucose 130 - H mg/dL, Range (80-115), Calcium 9.1 mg/dL, Range (7.8-10.44), Bilirubin, Total 0.6 mg/dL, Range (0.2-1.2), Protein, Total 6.9 g/dL, Range (5.8-8.1), NOTE: Plasma values are generally 0.3 to 0.5 g/dL higher than serum values, due to the presence of fibrinogen. , Albumin 3.9 g/dL, Range (3.4-4.8), Globulin 3.0 g/dL, Range (2.4-3.5), Alb/Glob Ratio 1.3 g/dL, Range (1.2-2.2), Alkaline Phosphatase 55 U/L, Range (40-150), AST (SGOT) 15 U/L, Range (5-34), ALT (SGPT) 13 U/L, Range (0-55). CBC with Differential Collection DT: SatAug 13, 2016 15:38, *White Blood Cell (WBC) Count 11.8 - H thou/uL, Range (4.8-10.8), Red Blood Cell (RBC) Count 4.42 mill/uL, Range (4.20-5.40), Hemoglobin 14.0 g/dL, Range (12.0-16.0), Hematocrit 43.1 %, Range (36.0-47.0), Mean Corpuscular Volume 97.4 fl, Range (81.0-99.0), *Mean Corpuscular Hemoglobin 31.7 - H pg, Range (27.0-31.0), Mean Corpuscular HGB CONC 32.5 g/dL, Range (32.0-36.0), RBC Distribution Width 12.3 %, Range (11.5-14.5), Platelet Count 230 thou/uL, Range (130-400), Mean Platelet Volume 8.0 fL, Range (7.4-10.4), %Neutrophils 72.6 %, Range (42.0-75.0), *%Lymphocytes 19.0 - L %, Range (21.0-51.0), %Monocytes 6.1 %, Range (0.0-10.0), %Eosinophils 1.2 %, Range (0.0-10.0), *%Basophils 1.1 - H %, Range (0.0-1.0), *#Neutrophils 8.5 - H thou/uL, Range (1.40-6.50), #Lymphocytes 2.2 thou/uL, Range (1.20-3.40), *#Monocytes 0.7 - H thou/uL, Range (0.11-0.59), &a-1R&a+25V*p+0X*t7640J*c202B*c15G*c2P*p-0X&a-25V&a+1R Name: Peggy Kerr : 1950 F66 MedRec: [id number] AcctNum: [id number] Prepared: SatAug 16, 2016 10:53 by Interface Page 12 of 13 D [facility] EMERGENCY RECORD #Eosinphils 0.1 thou/uL, Range (0.0-0.7), #Basophils 0.1 thou/uL, Range (0.0-0.2). Sierra: MARINO=CADEN Fontana, Emelia LSMI=ROSEANN Wood Leah MBRI=DO Rosas Matthew &a-1R&a+25V*p+0X*u2414J*c202B*c15G*c2P*p-0X&a-25V&a+1R Name: Peggy Kerr : 1950 F66 MedRec: [id number] AcctNum: [id number] Prepared: SatAug 16, 2016 10:53 by Interface Page 13 of 13 D [facility] MEDICATION RECONCILIATION You were seen in the Emergency Department on: SatAug 13, 2016 KNOWN ALLERGIES Ceclor: Reaction: Anaphylaxis, - AND TINGLING Penicillins: Reaction: Anaphylaxis Toradol: Reaction: Anaphylaxis, Severity: Severe, Source: Patient MEDICATIONS GIVEN WHILE IN THE EMERGENCY DEPARTMENT DuoNeb (ipratropium bromide/albuterol sulfate) - Dose: 3 milliliter(s) : Nebulize methylPREDNISolone sodium succ injection (methylprednisolone sod succ) - Dose: 125 milligram(s) : IV Push DuoNeb (ipratropium bromide/albuterol sulfate) - Dose: 3 milliliter(s) : Nebulize HOME MEDICATIONS CONTINUE PRESCRIBED albuterol sulfate : VIAL, NEBULIZER (EA) : Strength - 2.5 mg/0.5 mL : INHALATION Continue as prescribed Patient had been takin ea Nebulize As Needed. clonazePAM : TABLET : Strength - 0.5 mg : ORAL Continue as prescribed Patient had been takin.5 mg Oral 2 times a day. Cymbalta : CAPSULE,DELAYED RELEASE (ENTERIC COATED) : Strength - 20 mg : ORAL Continue as prescribed Patient had been takin mg Oral 3 times a day. lisinopril : TABLET : Strength - 10 mg : ORAL Continue as prescribed Patient had been takin mg Oral once a day (in the morning). Medrol (Robert) : TABLET, DOSE PACK : Strength - 4 mg : ORAL Continue as prescribed Patient had been takin tab(s) Oral once a day. &a-1R&a+25V*p+0X*i0542H*c202B*c15G*c2P*p-0X&a-25V&a+1R Name: Peggy Kerr : 1950 F66 MedRec: [id number] AcctNum: [id number] Prepared: Sravani Aug 16, 2016 10:53 by Interface pMD [facility] MEDICATION RECONCILIATION Mucinex DM : TABLET,EXTENDED RELEASE MULTIPHASE 12 HR : Strength - 1,200 mg-60 mg : ORAL Continue as prescribed Patient had been takin tab(s) Oral As Needed. ProAir HFA : HFA AEROSOL WITH ADAPTER (GRAM) : Strength - 90 mcg : INHALATION Continue as prescribed Patient had been takin puff(s) Inhaler every 4 hours prn. simvastatin : TABLET : Strength - 20 mg : ORAL Continue as prescribed Patient had been takin mg Oral once a day (at bedtime). Spiriva with HandiHaler : CAPSULE, WITH INHALATION DEVICE : Strength - 18 mcg : INHALATION Continue as prescribed Patient had been takin puff(s) Inhaler once a day. Symbicort : HFA AEROSOL WITH ADAPTER (GRAM) : Strength - 160 mcg-4.5 mcg/actuation : INHALATION Continue as prescribed Patient had been takin puff(s) Inhaler 2 times a day. Notes from the emergency department Reviewed with patient PRESCRIPTIONS (4) Printed (4) albuterol : AEROSOL (GM) : 90 mcg : INHALATION Quantity: 1, Unit: inhalation, Route: INHALATION, Schedule: every 4 hours prn, Dispense: 1 doxycycline hyclate oral : CAPSULE (HARD, SOFT, ETC.) : 100 mg : ORAL Quantity: 1, Unit: tab(s), Route: ORAL, Schedule: 2 times a day, Dispense: 20 Mucinex DM : TABLET,EXTENDED RELEASE MULTIPHASE 12 HR : 1,200 mg-60 mg : ORAL Quantity: 1, Unit: tab(s), Route: ORAL, Schedule: every 12 hours, Dispense: 20 &a-1R&a+25V*p+0X*s9652X*c202B*c15G*c2P*p-0X&a-25V&a+1R Name: Peggy Kerr : 1950 F66 MedRec: [id number] AcctNum: [id number] Prepared: Sravani Aug 16, 2016 10:53 by Interface pMD MTDD
--- NOTE | 2016-08-13 21:09 | RAD ---
PORTABLE CHEST: Date: 08-13-16 Comparison: 01-18-16 FINDINGS: The portable technique and body habitus make the sensitivity of this exam quite low. This is partic ularly true in the lung bases. N The heart is probably normal in size given the above factors. There are congestive changes or larg e pleural effusions. No infiltrates were seen though the lung base are not seen optimally. IMPRESSION: No definite acute finding. POS: HOME
== END 2016-08-13 16:45 | disposition home or self-care (01) ==
LOC: BURERS 15:08
DX: J44.1 Chronic obstructive pulmonary disease with (acute) exacerbation (principal); I10 Essential (primary) hypertension; F41.9 Anxiety disorder, unspecified; F32.9 Major depressive disorder, single episode, unspecified; F17.210 Nicotine dependence, cigarettes, uncomplicated; Z79.899 Other long term (current) drug therapy
CPT/HCPCS: 36415; 71010; 80053; 82553; 83880; 84484; 85025; 87040; 93005; 94640; 94760; 96374; J2930; J7620

== ENCOUNTER 2016-09-27 13:35 | Inpatient (IN) | payer MEDICARE ==
[2016-09-27 15:24] VITALS: BMI 42.8
[2016-09-27] MEDS ORDERED: Acetaminophen 325 MG TAB PO PRN (15:25)
[2016-09-27] MEDS ORDERED: Albuterol Sulfate 2.5 mg/3 ml Neb NEB PRN (15:27)
[2016-09-27] MEDS ORDERED: Dextrose 5% in Water 1,000 ML IV PRN (15:31)
[2016-09-27] MEDS ORDERED: Bisacodyl 5 MG TAB PO PRN (15:31)
[2016-09-27] MEDS ORDERED: Dextrose 50% Abboject 50 ML SYRINGE SLOW IVP PRN (15:32)
[2016-09-27] MEDS ORDERED: diphenhydrAMINE HCl 25 MG CAP PO PRN (15:33)
[2016-09-27] MEDS ORDERED: HumaLOG 300 UNITS/3 ML VIAL SC PRN (15:33)
[2016-09-27] MEDS ORDERED: Milk Of Magnesia 30 ML UDCUP PO PRN (15:34)
[2016-09-27] MEDS ORDERED: HYDROcodone/Acetaminophen 10/325 mg Tablet PO PRN (15:34)
[2016-09-27] MEDS ORDERED: HYDROcodone/Acetaminophen 5/325 mg Tablet PO PRN (15:34)
[2016-09-27] MEDS ORDERED: Ondansetron ODT 4 MG TAB PO PRN (15:35)
[2016-09-27] MEDS: Nicotine 14 MG PATCH TOP SCH (15:58)
[2016-09-27] MEDS: Mometasone/Formoterol 60 PUFF AER INH SCH (17:44)
[2016-09-27] MEDS ORDERED: FLU VACC TS2016-17(65YR +) 0.5 ML SYRINGE IM ONE (21:00)
[2016-09-27] MEDS: guaiFENesin ER 600 MG TAB PO SCH (21:49)
[2016-09-27] MEDS: clonazePAM 0.5 MG TAB PO SCH (21:49)
[2016-09-27] MEDS: Docusate 100 MG CAP PO SCH (21:49)
[2016-09-27] MEDS: Doxycycline Hyclate 100 MG TAB PO SCH (21:50)
[2016-09-27] MEDS: Atorvastatin Calcium 10 MG TAB PO SCH (21:50)
[2016-09-27] MEDS: Olopatadine HCl 100 DROP/5 ML BOT EA EYE SCH (22:03)
[2016-09-28] MEDS: Enoxaparin Sodium 40 MG/0.4 ML SYRINGE SC SCH ×2 (06:10→06:18)
[2016-09-28] MEDS: Mometasone/Formoterol 60 PUFF AER INH SCH ×2 (06:17→18:47)
[2016-09-28 06:43] LABS: #Basophils 0.1 thou/uL (0.0-0.2); #Lymphocytes 1.3 thou/uL (1.20-3.40); #Monocytes 0.9 thou/uL (0.11-0.59); #Neutrophils 15.6 thou/uL (1.40-6.50); %Basophils 0.5 % (0.0-1.0); %Lymphocytes 7.1 % (21.0-51.0); %Monocytes 5.2 % (0.0-10.0); %Neutrophils 87.2 % (42.0-75.0); Hemoglobin 15.1 g/dL (12.0-16.0); Mean Corpuscular HGB CONC 32.8 g/dL (32.0-36.0); Mean Corpuscular Hemoglobin 31.6 pg (27.0-31.0); Mean Corpuscular Volume 96.2 fl (81.0-99.0); Mean Platelet Volume 7.9 fL (7.4-10.4); Platelet Count 264 thou/uL (130-400); RBC Distribution Width 12.7 % (11.5-14.5); Red Blood Cell (RBC) Count 4.78 mill/uL (4.20-5.40); White Blood Cell (WBC) Count 17.8 thou/uL (4.8-10.8)
[2016-09-28 06:46] LABS: Anion Gap 14 mmol/L (10-20); BUN (Urea Nitrogen) 24 mg/dL (9.8-20.1); Calc. Creatinine Clearance 90 mL/min (70-130); Calcium 9.4 mg/dL (7.8-10.44); Carbon Dioxide 28 mmol/L (23-31); Chloride 103 mmol/L (98-107); Estimated GFR-MDRD 51; Glucose 169 mg/dL (80-115); Potassium 4.4 mmol/L (3.5-5.1); Sodium 141 mmol/L (136-145)
[2016-09-28] MEDS: Aspirin 325 MG TAB PO SCH (08:25)
[2016-09-28] MEDS: Ascorbic Acid 500 mg Chewable Tablet PO SCH (08:25)
[2016-09-28] MEDS: Cholecalciferol (Vitamin D3) 400 UNITS TAB PO SCH (08:27)
[2016-09-28] MEDS: clonazePAM 0.5 MG TAB PO SCH ×2 (08:27→20:32)
[2016-09-28] MEDS: Doxycycline Hyclate 100 MG TAB PO SCH ×2 (08:28→20:33)
[2016-09-28] MEDS: Docusate 100 MG CAP PO SCH ×2 (08:28→20:33)
[2016-09-28] MEDS: guaiFENesin ER 600 MG TAB PO SCH ×2 (08:29→20:32)
[2016-09-28] MEDS: Olopatadine HCl 100 DROP/5 ML BOT EA EYE SCH ×2 (08:30→20:38)
[2016-09-28] MEDS: Loratadine 10 MG TAB PO SCH (08:30)
[2016-09-28] MEDS: Lisinopril 10 MG TAB PO SCH (08:30)
[2016-09-28] MEDS: Stress 600 With Zinc 1 TAB PO SCH (08:31)
[2016-09-28] MEDS: HumaLOG 300 UNITS/3 ML VIAL SC PRN ×2 (08:35→18:14)
[2016-09-28] MEDS: Nicotine 14 MG PATCH TOP SCH (12:26)
[2016-09-28] MEDS ORDERED: Sodium Chloride 0.65% Nasal 44 ML BOT EA NARE PRN (18:20)
[2016-09-28] MEDS: Atorvastatin Calcium 10 MG TAB PO SCH (20:32)
[2016-09-28] MEDS: Nitrofurantoin Monohyd/M-Cryst 100 MG CAP PO SCH (20:32)
[2016-09-29] MEDS: Mometasone/Formoterol 60 PUFF AER INH SCH ×2 (06:27→18:25)
[2016-09-29] MEDS: Enoxaparin Sodium 40 MG/0.4 ML SYRINGE SC SCH (06:34)
[2016-09-29] MEDS: Docusate 100 MG CAP PO SCH ×2 (09:48→20:28)
[2016-09-29] MEDS: Ascorbic Acid 500 mg Chewable Tablet PO SCH (09:48)
[2016-09-29] MEDS: Aspirin 325 MG TAB PO SCH (09:52)
[2016-09-29] MEDS: Loratadine 10 MG TAB PO SCH (09:52)
[2016-09-29] MEDS: guaiFENesin ER 600 MG TAB PO SCH ×2 (09:52→20:25)
[2016-09-29] MEDS: predniSONE 20 MG TAB PO SCH (09:53)
[2016-09-29] MEDS: Lisinopril 10 MG TAB PO SCH (09:53)
[2016-09-29] MEDS: Stress 600 With Zinc 1 TAB PO SCH (09:54)
[2016-09-29] MEDS: clonazePAM 0.5 MG TAB PO SCH ×2 (09:54→20:25)
[2016-09-29] MEDS: Nitrofurantoin Monohyd/M-Cryst 100 MG CAP PO SCH ×2 (09:54→20:22)
[2016-09-29] MEDS: Doxycycline Hyclate 100 MG TAB PO SCH ×2 (09:55→20:23)
[2016-09-29] MEDS: Cholecalciferol (Vitamin D3) 400 UNITS TAB PO SCH (09:55)
[2016-09-29] MEDS: Olopatadine HCl 100 DROP/5 ML BOT EA EYE SCH ×2 (10:03→20:28)
[2016-09-29] MEDS: Nicotine 14 MG PATCH TOP SCH (15:49)
[2016-09-29] MEDS: HumaLOG 300 UNITS/3 ML VIAL SC PRN (18:27)
[2016-09-29] MEDS: Atorvastatin Calcium 10 MG TAB PO SCH (20:24)
[2016-09-30] MEDS: Mometasone/Formoterol 60 PUFF AER INH SCH ×2 (06:21→17:45)
[2016-09-30] MEDS: Enoxaparin Sodium 40 MG/0.4 ML SYRINGE SC SCH (06:23)
[2016-09-30] MEDS: guaiFENesin ER 600 MG TAB PO SCH ×2 (09:21→20:45)
[2016-09-30] MEDS: Aspirin 325 MG TAB PO SCH (09:21)
[2016-09-30] MEDS: Ascorbic Acid 500 mg Chewable Tablet PO SCH (09:21)
[2016-09-30] MEDS: Nitrofurantoin Monohyd/M-Cryst 100 MG CAP PO SCH ×2 (09:21→20:46)
[2016-09-30] MEDS: Stress 600 With Zinc 1 TAB PO SCH (09:22)
[2016-09-30] MEDS: Olopatadine HCl 100 DROP/5 ML BOT EA EYE SCH ×2 (09:22→20:46)
[2016-09-30] MEDS: Lisinopril 10 MG TAB PO SCH (09:22)
[2016-09-30] MEDS: Loratadine 10 MG TAB PO SCH (09:23)
[2016-09-30] MEDS: clonazePAM 0.5 MG TAB PO SCH ×2 (09:24→20:46)
[2016-09-30] MEDS: predniSONE 20 MG TAB PO SCH (09:24)
[2016-09-30] MEDS: Cholecalciferol (Vitamin D3) 400 UNITS TAB PO SCH (09:25)
[2016-09-30] MEDS: Doxycycline Hyclate 100 MG TAB PO SCH ×2 (09:27→20:47)
[2016-09-30] MEDS: Docusate 100 MG CAP PO SCH ×2 (09:27→20:46)
[2016-09-30] MEDS: Nicotine 14 MG PATCH TOP SCH (13:55)
[2016-09-30] MEDS: HumaLOG 300 UNITS/3 ML VIAL SC PRN (18:09)
[2016-09-30] MEDS: Atorvastatin Calcium 10 MG TAB PO SCH (20:44)
[2016-10-01] MEDS: Mometasone/Formoterol 60 PUFF AER INH SCH (06:08)
[2016-10-01 06:11] VITALS: TEMP 98.3
[2016-10-01] MEDS: Enoxaparin Sodium 40 MG/0.4 ML SYRINGE SC SCH (06:20)
[2016-10-01 06:43] LABS: Hemoglobin 15.7 g/dL (12.0-16.0); Mean Corpuscular Hemoglobin 32.3 pg (27.0-31.0); Mean Corpuscular Volume 94.8 fl (81.0-99.0); Mean Platelet Volume 7.6 fL (7.4-10.4); Platelet Count 245 thou/uL (130-400); RBC Distribution Width 12.4 % (11.5-14.5); Red Blood Cell (RBC) Count 4.87 mill/uL (4.20-5.40)
[2016-10-01 07:12] LABS: Lymphocytes 21 % (21-51); MDiff Complete? YES; Monocytes 7 % (0-10); Neutrophil 72 % (42-75); PLT Morphology Comment Appears Adequate
[2016-10-01] MEDS: predniSONE 20 MG TAB PO SCH (09:35)
[2016-10-01] MEDS: Aspirin 325 MG TAB PO SCH ×2 (09:35→09:36)
[2016-10-01] MEDS: Ascorbic Acid 500 mg Chewable Tablet PO SCH (09:35)
[2016-10-01] MEDS: guaiFENesin ER 600 MG TAB PO SCH (09:36)
[2016-10-01] MEDS: clonazePAM 0.5 MG TAB PO SCH (09:36)
[2016-10-01] MEDS: Doxycycline Hyclate 100 MG TAB PO SCH (09:37)
[2016-10-01] MEDS: Loratadine 10 MG TAB PO SCH (09:37)
[2016-10-01] MEDS: Docusate 100 MG CAP PO SCH (09:37)
[2016-10-01] MEDS: Lisinopril 10 MG TAB PO SCH (09:37)
[2016-10-01] MEDS: Nitrofurantoin Monohyd/M-Cryst 100 MG CAP PO SCH (09:37)
[2016-10-01] MEDS: Olopatadine HCl 100 DROP/5 ML BOT EA EYE SCH (09:38)
[2016-10-01] MEDS: Stress 600 With Zinc 1 TAB PO SCH (09:38)
[2016-10-01 09:39] VITALS: BP 174/80
[2016-10-01] MEDS: Cholecalciferol (Vitamin D3) 400 UNITS TAB PO SCH (09:51)
== END 2016-10-01 11:45 | disposition home or self-care (01) | DRG 191 ==
LOC: BURMED 13:35
PROVIDERS: ADMIT Family Medicine; ATTEND Family Medicine
DX: J44.1 Chronic obstructive pulmonary disease with (acute) exacerbation (principal); N39.0 Urinary tract infection, site not specified; Z91.09 Other allergy status, other than to drugs and biological substances
CPT/HCPCS: 36415; 36416; 80048; 85025; 94664; A4216; G8978-GP-CK; G8979-GP-CI; G8987-GO-CJ; G8988-GO-CI; J1650; J2920; J7506; J7620

== ENCOUNTER 2016-11-26 21:41 | Emergency (ER) | payer MEDICARE ==
[2016-11-26] MEDS ORDERED: Albuterol Sulfate 1.25 MG/3 ML NEB ONE (21:52)
[2016-11-26] MEDS ORDERED: Ipratropium Bromide 2.5 ml Neb ONE ×2 (21:52→21:53)
[2016-11-26] MEDS ORDERED: Ondansetron HCl/PF 4 MG/2 ML Vial ONE (22:06)
[2016-11-26] MEDS ORDERED: Magnesium Sulfate 2 GM/100 ML BAG ONE (22:06)
[2016-11-26] MEDS ORDERED: methylPREDNISolone Sod Succ/PF 125 MG/2 ML VIAL ONE (22:06)
[2016-11-26 22:10] LABS: #Basophils 0.1 thou/uL (0.0-0.2); #Eosinphils 0.2 thou/uL (0.0-0.7); #Lymphocytes 1.5 thou/uL (1.20-3.40); #Monocytes 1.5 thou/uL (0.11-0.59); #Neutrophils 15.8 thou/uL (1.40-6.50); %Basophils 0.8 % (0.0-1.0); %Eosinophils 0.8 % (0.0-10.0); %Lymphocytes 7.8 % (21.0-51.0); %Monocytes 7.7 % (0.0-10.0); Hemoglobin 14.6 g/dL (12.0-16.0); Mean Corpuscular HGB CONC 32.7 g/dL (32.0-36.0); Mean Corpuscular Hemoglobin 32.2 pg (27.0-31.0); Mean Corpuscular Volume 98.5 fl (81.0-99.0); Mean Platelet Volume 9.9 fL (7.4-10.4); Platelet Count 204 thou/uL (130-400); RBC Distribution Width 13.7 % (11.5-14.5); Red Blood Cell (RBC) Count 4.53 mill/uL (4.20-5.40)
[2016-11-26 22:13] LABS: INR-International Normal Ratio 1.2; PTT 30.9 SEC (22.9-36.1); Prothrombin Time 15.4 SEC (12.0-14.7)
[2016-11-26 22:22] LABS: ALT (SGPT) 16 U/L (8-55); AST (SGOT) 16 U/L (5-34); Albumin 3.9 g/dL (3.4-4.8); Alkaline Phosphatase 66 U/L (40-150); Anion Gap 17 mmol/L (10-20); BUN (Urea Nitrogen) 19 mg/dL (9.8-20.1); Bilirubin, Total 1.2 mg/dL (0.2-1.2); CK (CPK) 100 U/L (29-168); Calc. Creatinine Clearance 0 mL/min (70-130); Calcium 9.3 mg/dL (7.8-10.44); Carbon Dioxide 26 mmol/L (23-31); Chloride 100 mmol/L (98-107); Estimated GFR-MDRD 38; Glucose 137 mg/dL (80-115); Potassium 3.8 mmol/L (3.5-5.1); Protein, Total 6.9 g/dL (6.0-8.3); Sodium 139 mmol/L (136-145)
[2016-11-26 22:24] LABS: CKMB 3.1 ng/mL (0-6.6); Troponin I Less than 0.010 ng/mL (< 0.028)
--- NOTE | 2016-11-27 07:47 | RAD ---
PORTABLE CHEST: DATE: 11/26/16. FINDINGS: An AP portable film at 2153 is compared with a 09/24/16 study. Mild cardiomegaly is about the same as before. There is no clear congestion of the upper lobe vesse ls. The left pulmonary artery is a little more prominent on this film than the last, but it is prob ably due to slight differences in positioning. It is difficult to adequately evaluate the lung bases in this patient on this portable study. I can not rule out a right basilar infiltrate, but the area simply is not shown well enough to be certain. I know a question was raised about pleural fluid. I doubt that there is any substantial amount of effusion. The trachea is midline. IMPRESSION: 1. Questionable right basilar haziness. Upright PA and lateral views would be helpful to better ev aluate this area. 2. Mild cardiomegaly, unchanged. POS: HOME
== END 2016-11-26 22:40 | disposition short-term general hospital (02) ==
LOC: BURERS 21:41
DX: J96.91 Respiratory failure, unspecified with hypoxia (principal); J44.1 Chronic obstructive pulmonary disease with (acute) exacerbation; I10 Essential (primary) hypertension; F41.9 Anxiety disorder, unspecified; F32.9 Major depressive disorder, single episode, unspecified; F17.210 Nicotine dependence, cigarettes, uncomplicated
CPT/HCPCS: 36415; 71010; 80053; 82550; 82553; 83605; 83880; 84484; 85025; 85610; 85730; 87040; 93005; 94644; 94660; 94760; 96365; 96375; J2405; J2930; J3475; J7644

== ENCOUNTER 2016-12-19 09:57 | Outpatient (CLI) | payer MEDICARE ==
[2016-12-19 11:54] LABS: #Basophils 0.1 thou/uL (0.0-0.2); #Eosinphils 0.2 thou/uL (0.0-0.7); #Lymphocytes 4.9 thou/uL (1.20-3.40); #Monocytes 0.9 thou/uL (0.11-0.59); #Neutrophils 10.9 thou/uL (1.40-6.50); %Basophils 0.6 % (0.0-1.0); %Lymphocytes 28.7 % (21.0-51.0); %Monocytes 5.4 % (0.0-10.0); %Neutrophils 64.4 % (42.0-75.0); Hemoglobin 15.4 g/dL (12.0-16.0); Mean Corpuscular HGB CONC 32.1 g/dL (32.0-36.0); Mean Corpuscular Hemoglobin 32.5 pg (27.0-31.0); Mean Platelet Volume 7.6 fL (7.4-10.4); Platelet Count 195 thou/uL (130-400); RBC Distribution Width 13.8 % (11.5-14.5); Red Blood Cell (RBC) Count 4.73 mill/uL (4.20-5.40); White Blood Cell (WBC) Count 16.9 thou/uL (4.8-10.8)
[2016-12-19 15:01] LABS: ALT (SGPT) 18 U/L (8-55); AST (SGOT) 14 U/L (5-34); Albumin 3.7 g/dL (3.4-4.8); Alkaline Phosphatase 50 U/L (40-150); Anion Gap 19 mmol/L (10-20); BUN (Urea Nitrogen) 26 mg/dL (9.8-20.1); Bilirubin, Total 0.6 mg/dL (0.2-1.2); Calc. Creatinine Clearance 0 mL/min (70-130); Carbon Dioxide 27 mmol/L (23-31); Cardiac Risk 3.6 (Less than 4.5); Chloride 101 mmol/L (98-107); Cholesterol 192 mg/dl (< 200 Desired); Estimated GFR-MDRD 49; Globulin 2.6 g/dL (2.4-3.5); Glucose 77 mg/dL (80-115); HDL Cholesterol 53 mg/dL (>60 Neg Risk); LDL Cholesterol, Calculated 115 mg/dL; Potassium 3.8 mmol/L (3.5-5.1); Protein, Total 6.3 g/dL (6.0-8.3); Sodium 143 mmol/L (136-145); Triglycerides 121 mg/dL (Less than 150)
[2016-12-19 15:15] LABS: Hemoglobin A1c 6.1 % (4.0-6.0)
[2016-12-19 17:47] LABS: Creatinine, Urine 155.9 mg/dL (47-110); Microalbumin Urine 3.2 mg/dL (0.5-50.0); Microalbumin/Creat Ratio 20.5 mg/g (Less than 30)
== END 2016-12-19 09:58 ==
LOC: HPCALD 09:57
PROVIDERS: ATTEND Family Medicine
DX: E78.5 Hyperlipidemia, unspecified (principal); E11.9 Type 2 diabetes mellitus without complications
CPT/HCPCS: 36415; 80053; 80061; 82043; 83036; 84443; 85025

== ENCOUNTER 2016-12-28 09:44 | Emergency (ER) | payer MEDICARE ==
[2016-12-28] MEDS ORDERED: Magnesium Sulfate 2 GM/100 ML BAG ONE (09:47)
[2016-12-28] MEDS ORDERED: Albuterol Sulfate 1.25 MG/3 ML NEB ONE ×2 (09:47→11:00)
[2016-12-28] MEDS ORDERED: methylPREDNISolone Sod Succ/PF 125 MG/2 ML VIAL ONE (09:47)
[2016-12-28 10:26] LABS: #Basophils 0.1 thou/uL (0.0-0.2); #Eosinphils 0.1 thou/uL (0.0-0.7); #Lymphocytes 2.5 thou/uL (1.20-3.40); #Monocytes 0.9 thou/uL (0.11-0.59); #Neutrophils 11.6 thou/uL (1.40-6.50); %Basophils 0.7 % (0.0-1.0); %Eosinophils 0.6 % (0.0-10.0); %Lymphocytes 16.7 % (21.0-51.0); %Monocytes 6.1 % (0.0-10.0); %Neutrophils 75.9 % (42.0-75.0); Hemoglobin 14.1 g/dL (12.0-16.0); Mean Corpuscular HGB CONC 32.6 g/dL (32.0-36.0); Mean Corpuscular Hemoglobin 32.4 pg (27.0-31.0); Mean Corpuscular Volume 99.4 fl (81.0-99.0); Platelet Count 227 thou/uL (130-400); RBC Distribution Width 13.3 % (11.5-14.5); Red Blood Cell (RBC) Count 4.37 mill/uL (4.20-5.40); White Blood Cell (WBC) Count 15.3 thou/uL (4.8-10.8)
[2016-12-28 10:39] LABS: ALT (SGPT) 16 U/L (8-55); AST (SGOT) 16 U/L (5-34); Albumin 3.7 g/dL (3.4-4.8); Alkaline Phosphatase 55 U/L (40-150); Anion Gap 14 mmol/L (10-20); BUN (Urea Nitrogen) 14 mg/dL (9.8-20.1); Bilirubin, Total 0.7 mg/dL (0.2-1.2); Calc. Creatinine Clearance 0 mL/min (70-130); Calcium 8.9 mg/dL (7.8-10.44); Carbon Dioxide 24 mmol/L (23-31); Chloride 104 mmol/L (98-107); Estimated GFR-MDRD 51; Glucose 174 mg/dL (80-115); Potassium 4.1 mmol/L (3.5-5.1); Protein, Total 6.7 g/dL (6.0-8.3); Sodium 138 mmol/L (136-145)
[2016-12-28] MEDS ORDERED: Acetaminophen 500 MG TAB ONE (10:39)
[2016-12-28 10:43] LABS: Troponin I 0.012 ng/mL (< 0.028)
[2016-12-28] MEDS ORDERED: Azithromycin 500 MG VIAL ONE (10:45)
[2016-12-28] MEDS ORDERED: Ondansetron HCl/PF 4 MG/2 ML Vial ONE (11:41)
[2016-12-28] MEDS ORDERED: Morphine Sulfate 2 MG/ML SYRINGE ONE (11:41)
--- NOTE | 2016-12-28 18:09 | RAD ---
PORTABLE CHEST 12/28/16 Comparison is made with the 11/26/16 study. The portable technique and body habitus makes seeing the lower lobes very difficult. There does appear to be a little increased density in the right lower lo be medially, but I cannot ensure whether a true infiltrate is present here or if this is just promin ence of markings and overlying soft tissues. The upper lobes are clear. No congestive changes were a ppreciated. Mild to moderate cardiomegaly is about the same as before. IMPRESSION: 1. Cardiomegaly without congestive change. 2. Question of right basilar haziness medially. An infiltrate is not definitely ruled out, but the area is not seen well. POS: HOME
== END 2016-12-28 13:02 | disposition home or self-care (01) ==
LOC: BURERS 09:44
DX: J80 Acute respiratory distress syndrome (principal); J44.1 Chronic obstructive pulmonary disease with (acute) exacerbation; I10 Essential (primary) hypertension; F41.9 Anxiety disorder, unspecified; F32.9 Major depressive disorder, single episode, unspecified; F17.210 Nicotine dependence, cigarettes, uncomplicated; Z79.899 Other long term (current) drug therapy
CPT/HCPCS: 36415; 71010; 80053; 82553; 82805; 83605; 83880; 84484; 85025; 87040; 87070; 87205; 93005; 94640; 94660; 94760; 96361; 96365; 96367; 96375; J0456; J2270; J2405; J2930; J3370; J3475; J7620

== ENCOUNTER 2017-01-04 16:55 | Inpatient (IN) | payer MEDICARE ==
[2017-01-04] MEDS ORDERED: Bisacodyl 10 MG SUPP PR PRN (17:51)
[2017-01-04] MEDS ORDERED: Ondansetron ODT 4 MG TAB PO PRN (17:51)
[2017-01-04] MEDS ORDERED: Milk Of Magnesia 30 ML UDCUP PO PRN (17:51)
[2017-01-04] MEDS ORDERED: Dextrose 50% Abboject 50 ML SYRINGE SLOW IVP PRN (17:55)
[2017-01-04] MEDS ORDERED: HumaLOG 300 UNITS/3 ML VIAL SC PRN (17:55)
[2017-01-04] MEDS ORDERED: Dextrose 5% in Water 1,000 ML IV PRN (17:55)
[2017-01-04 18:24] VITALS: BMI 46.4
[2017-01-04] MEDS: Acetaminophen 325 MG TAB PO PRN (18:45)
[2017-01-04] MEDS ORDERED: Polyethylene Glycol 3350 17 GM Packet PO PRN (19:31)
[2017-01-04] MEDS: Nicotine 14 MG PATCH TD SCH (19:42)
[2017-01-04] MEDS ORDERED: Potassium Chloride 10 MEQ TAB PO SCH (19:45)
[2017-01-04] MEDS: Simvastatin 40 MG TAB PO SCH (21:25)
[2017-01-04] MEDS: Docusate 100 MG CAP PO SCH (21:25)
[2017-01-04] MEDS: guaiFENesin ER 600 MG TAB PO SCH (21:26)
[2017-01-04] MEDS: clonazePAM 0.5 MG TAB PO SCH (21:26)
[2017-01-04] MEDS: Montelukast Sodium 10 mg Tablet PO SCH (21:26)
[2017-01-04] MEDS: Mometasone/Formoterol 60 PUFF AER INH SCH (21:27)
[2017-01-04] MEDS: Potassium Chloride 10 MEQ TAB PO SCH (21:50)
[2017-01-05 06:49] LABS: ALT (SGPT) 18 U/L (8-55); AST (SGOT) 12 U/L (5-34); Albumin 3.6 g/dL (3.4-4.8); Alkaline Phosphatase 46 U/L (40-150); Anion Gap 16 mmol/L (10-20); BUN (Urea Nitrogen) 21 mg/dL (9.8-20.1); Bilirubin, Total 0.5 mg/dL (0.2-1.2); Calc. Creatinine Clearance 97 mL/min (70-130); Calcium 9.1 mg/dL (7.8-10.44); Carbon Dioxide 29 mmol/L (23-31); Chloride 103 mmol/L (98-107); Estimated GFR-MDRD 51; Globulin 2.2 g/dL (2.4-3.5); Glucose 83 mg/dL (80-115); Potassium 4.3 mmol/L (3.5-5.1); Protein, Total 5.8 g/dL (6.0-8.3); Sodium 144 mmol/L (136-145)
[2017-01-05 06:55] LABS: Band 2 % (5-11); Eosinophils 1 % (0-10); Lymphocytes 19 % (21-51); MDiff Complete? YES; Mean Corpuscular HGB CONC 33.8 g/dL (32.0-36.0); Mean Corpuscular Hemoglobin 33.7 pg (27.0-31.0); Mean Corpuscular Volume 99.6 fl (81.0-99.0); Mean Platelet Volume 7.3 fL (7.4-10.4); Monocytes 7 % (0-10); Neutrophil 71 % (42-75); Platelet Count 264 thou/uL (130-400); RBC Distribution Width 13.5 % (11.5-14.5); Red Blood Cell (RBC) Count 4.16 mill/uL (4.20-5.40); Toxic Granulation SLIGHT; White Blood Cell (WBC) Count 23.4 thou/uL (4.8-10.8)
[2017-01-05] MEDS: clonazePAM 0.5 MG TAB PO SCH ×2 (08:32→21:04)
[2017-01-05] MEDS: Docusate 100 MG CAP PO SCH ×2 (08:32→21:04)
[2017-01-05] MEDS: predniSONE 20 MG TAB PO SCH (08:32)
[2017-01-05] MEDS: guaiFENesin ER 600 MG TAB PO SCH ×2 (08:32→21:04)
[2017-01-05] MEDS: Lisinopril 10 MG TAB PO SCH (08:34)
[2017-01-05] MEDS: Mometasone/Formoterol 60 PUFF AER INH SCH ×2 (08:34→21:03)
[2017-01-05] MEDS ORDERED: Spiriva 18 MCG CAP (Box of 5 Caps) INH SCH (09:00)
[2017-01-05] MEDS ORDERED: Ventolin HFA Inhaler 60 PUFF INHALER ONE (15:17)
[2017-01-05] MEDS: Acetaminophen 325 MG TAB PO PRN (15:35)
[2017-01-05] MEDS: HumaLOG 300 UNITS/3 ML VIAL SC PRN (17:37)
[2017-01-05] MEDS: Nicotine 14 MG PATCH TD SCH (17:40)
[2017-01-05] MEDS: Montelukast Sodium 10 mg Tablet PO SCH (21:05)
[2017-01-05] MEDS: Simvastatin 40 MG TAB PO SCH (21:05)
[2017-01-06] MEDS: Docusate 100 MG CAP PO SCH ×2 (08:41→20:47)
[2017-01-06] MEDS: Lisinopril 10 MG TAB PO SCH (08:41)
[2017-01-06] MEDS: guaiFENesin ER 600 MG TAB PO SCH ×2 (08:41→20:47)
[2017-01-06] MEDS: clonazePAM 0.5 MG TAB PO SCH ×2 (08:42→20:46)
[2017-01-06] MEDS: Mometasone/Formoterol 60 PUFF AER INH SCH ×2 (08:42→20:49)
[2017-01-06] MEDS: predniSONE 20 MG TAB PO SCH (08:42)
[2017-01-06] MEDS: HumaLOG 300 UNITS/3 ML VIAL SC PRN (17:41)
[2017-01-06] MEDS: Nicotine 14 MG PATCH TD SCH (17:45)
[2017-01-06] MEDS: Montelukast Sodium 10 mg Tablet PO SCH (20:46)
[2017-01-06] MEDS: Simvastatin 40 MG TAB PO SCH (20:48)
[2017-01-06] MEDS: Potassium Chloride 10 MEQ TAB PO SCH (22:37)
[2017-01-07] MEDS: clonazePAM 0.5 MG TAB PO SCH ×2 (08:10→21:15)
[2017-01-07] MEDS: Lisinopril 10 MG TAB PO SCH (08:10)
[2017-01-07] MEDS: guaiFENesin ER 600 MG TAB PO SCH ×2 (08:10→21:16)
[2017-01-07] MEDS: Docusate 100 MG CAP PO SCH ×2 (08:10→21:17)
[2017-01-07] MEDS: predniSONE 20 MG TAB PO SCH (08:10)
[2017-01-07] MEDS: Mometasone/Formoterol 60 PUFF AER INH SCH ×2 (08:13→21:18)
[2017-01-07] MEDS ORDERED: Nicotine 14 MG PATCH TD PRN (09:01)
[2017-01-07] MEDS: Simvastatin 40 MG TAB PO SCH (21:16)
[2017-01-07] MEDS: Montelukast Sodium 10 mg Tablet PO SCH (21:17)
[2017-01-07] MEDS: Acetaminophen 325 MG TAB PO PRN (21:52)
[2017-01-08] MEDS: predniSONE 20 MG TAB PO SCH (08:21)
[2017-01-08] MEDS: clonazePAM 0.5 MG TAB PO SCH ×2 (08:21→21:04)
[2017-01-08] MEDS: Lisinopril 10 MG TAB PO SCH (08:22)
[2017-01-08] MEDS: Docusate 100 MG CAP PO SCH ×2 (08:22→21:03)
[2017-01-08] MEDS: guaiFENesin ER 600 MG TAB PO SCH ×2 (08:22→21:00)
[2017-01-08] MEDS: Acetaminophen 325 MG TAB PO PRN ×2 (08:22→19:54)
[2017-01-08] MEDS: Mometasone/Formoterol 60 PUFF AER INH SCH ×2 (08:27→21:00)
[2017-01-08] MEDS: Simvastatin 40 MG TAB PO SCH (21:03)
[2017-01-08] MEDS: Montelukast Sodium 10 mg Tablet PO SCH (21:03)
[2017-01-08] MEDS: Potassium Chloride 10 MEQ TAB PO SCH (21:04)
[2017-01-09 06:29] LABS: #Basophils 0.1 thou/uL (0.0-0.2); #Lymphocytes 3.9 thou/uL (1.20-3.40); #Neutrophils 14.1 thou/uL (1.40-6.50); %Basophils 0.3 % (0.0-1.0); %Eosinophils 0.1 % (0.0-10.0); %Lymphocytes 20.6 % (21.0-51.0); %Monocytes 5.3 % (0.0-10.0); %Neutrophils 73.8 % (42.0-75.0); Hemoglobin 14.7 g/dL (12.0-16.0); Mean Corpuscular Hemoglobin 33.1 pg (27.0-31.0); Mean Platelet Volume 7.4 fL (7.4-10.4); Platelet Count 218 thou/uL (130-400); RBC Distribution Width 13.1 % (11.5-14.5); Red Blood Cell (RBC) Count 4.45 mill/uL (4.20-5.40); White Blood Cell (WBC) Count 19.1 thou/uL (4.8-10.8)
--- NOTE | 2017-01-09 07:48 | RAD ---
CHEST 2 VIEWS: DATE: 01/09/17. FINDINGS: Comparison is made with a 12/28 study. The heart is borderline in size but unchanged. There are no congestive changes or pleural effusions . Previously, an infiltrate was noted in the right base medially. There is still haziness here, th ough it has improved somewhat. COPD is present with flattening of the diaphragm. The bony structur es appear intact. The trachea is midline. IMPRESSION: Right basilar infiltrate has improved since 12/28 but has not resolved completely. I would recommend at least 1 further followup film in perhaps another 2-4 weeks to follow this to complete resolution and be sure there is no other pathology here. CODE T POS: HOME
[2017-01-09] MEDS: guaiFENesin ER 600 MG TAB PO SCH ×2 (08:41→21:27)
[2017-01-09] MEDS: Docusate 100 MG CAP PO SCH ×2 (08:41→21:26)
[2017-01-09] MEDS: clonazePAM 0.5 MG TAB PO SCH ×2 (08:42→21:27)
[2017-01-09] MEDS: Mometasone/Formoterol 60 PUFF AER INH SCH ×2 (08:42→21:28)
[2017-01-09] MEDS: Lisinopril 10 MG TAB PO SCH (08:48)
[2017-01-09] MEDS: Acetaminophen 325 MG TAB PO PRN (08:54)
[2017-01-09] MEDS ORDERED: predniSONE 20 MG TAB PO SCH (10:00)
[2017-01-09] MEDS: predniSONE 20 MG TAB PO SCH (10:55)
[2017-01-09] MEDS: HumaLOG 300 UNITS/3 ML VIAL SC PRN (18:00)
[2017-01-09] MEDS: Montelukast Sodium 10 mg Tablet PO SCH (21:27)
[2017-01-09] MEDS: Simvastatin 40 MG TAB PO SCH (21:27)
[2017-01-10] MEDS: Acetaminophen 325 MG TAB PO PRN (09:13)
[2017-01-10] MEDS: Mometasone/Formoterol 60 PUFF AER INH SCH ×2 (09:14→21:15)
[2017-01-10] MEDS: guaiFENesin ER 600 MG TAB PO SCH ×2 (09:19→21:13)
[2017-01-10] MEDS: Docusate 100 MG CAP PO SCH ×2 (09:19→21:14)
[2017-01-10] MEDS: predniSONE 20 MG TAB PO SCH (09:19)
[2017-01-10] MEDS: Lisinopril 10 MG TAB PO SCH (09:20)
[2017-01-10] MEDS: clonazePAM 0.5 MG TAB PO SCH ×2 (09:20→21:14)
[2017-01-10] MEDS: Montelukast Sodium 10 mg Tablet PO SCH (21:14)
[2017-01-10] MEDS: Potassium Chloride 10 MEQ TAB PO SCH (21:14)
[2017-01-10] MEDS: Simvastatin 40 MG TAB PO SCH (21:14)
[2017-01-11 06:31] VITALS: BP 122/74
[2017-01-11] MEDS: Lisinopril 10 MG TAB PO SCH (08:07)
[2017-01-11] MEDS: clonazePAM 0.5 MG TAB PO SCH (08:08)
[2017-01-11] MEDS: Mometasone/Formoterol 60 PUFF AER INH SCH (08:08)
[2017-01-11] MEDS: Docusate 100 MG CAP PO SCH (08:08)
[2017-01-11] MEDS: predniSONE 20 MG TAB PO SCH (08:08)
[2017-01-11] MEDS: guaiFENesin ER 600 MG TAB PO SCH (08:08)
[2017-01-11 12:01] VITALS: TEMP 98
== END 2017-01-11 13:50 | disposition home or self-care (01) | DRG 192 ==
LOC: BURMED 17:38
PROVIDERS: ADMIT Family Medicine; ATTEND Family Medicine
DX: J44.1 Chronic obstructive pulmonary disease with (acute) exacerbation (principal); E11.22 Type 2 diabetes mellitus with diabetic chronic kidney disease; Z99.81 Dependence on supplemental oxygen; F17.210 Nicotine dependence, cigarettes, uncomplicated; I12.9 Hypertensive chronic kidney disease with stage 1 through stage 4 chronic kidney disease, or unspecified chronic kidney disease; N18.3 Chronic kidney disease, stage 3 (moderate); E55.9 Vitamin D deficiency, unspecified; D72.829 Elevated white blood cell count, unspecified; T38.0X5A Adverse effect of glucocorticoids and synthetic analogues, initial encounter; E78.5 Hyperlipidemia, unspecified
CPT/HCPCS: 36415; 36416; 71020; 80053; 85025; 94664; G8978-GP-CK; G8979-GP-CI; G8987-GO-CK; G8988-GO-CI; J7506; J7620

== ENCOUNTER 2017-05-02 14:30 | Emergency (ER) | payer MEDICARE ==
[2017-05-02] MEDS ORDERED: methylPREDNISolone Sod Succ/PF 125 MG/2 ML VIAL ONE (14:44)
[2017-05-02] MEDS ORDERED: Albuterol Sulfate 1.25 MG/3 ML NEB ONE (14:44)
[2017-05-02 14:47] LABS: #Basophils 0.1 thou/uL (0.0-0.2); #Eosinphils 0.3 thou/uL (0.0-0.7); #Lymphocytes 2.7 thou/uL (1.20-3.40); #Monocytes 0.9 thou/uL (0.11-0.59); #Neutrophils 6.6 thou/uL (1.40-6.50); %Eosinophils 2.6 % (0.0-10.0); %Lymphocytes 25.6 % (21.0-51.0); %Monocytes 8.4 % (0.0-10.0); %Neutrophils 62.4 % (42.0-75.0); Hemoglobin 13.6 g/dL (12.0-16.0); Mean Corpuscular HGB CONC 31.8 g/dL (32.0-36.0); Mean Corpuscular Hemoglobin 31.1 pg (27.0-31.0); Mean Corpuscular Volume 97.9 fl (81.0-99.0); Mean Platelet Volume 8.9 fL (7.4-10.4); Platelet Count 234 thou/uL (130-400); Red Blood Cell (RBC) Count 4.38 mill/uL (4.20-5.40); White Blood Cell (WBC) Count 10.6 thou/uL (4.8-10.8)
[2017-05-02 15:02] LABS: ALT (SGPT) 10 U/L (8-55); AST (SGOT) 13 U/L (5-34); Albumin 3.9 g/dL (3.4-4.8); Alkaline Phosphatase 68 U/L (40-150); Anion Gap 15 mmol/L (10-20); BUN (Urea Nitrogen) 13 mg/dL (9.8-20.1); Bilirubin, Total 0.5 mg/dL (0.2-1.2); Calc. Creatinine Clearance 0 mL/min (70-130); Calcium 9.3 mg/dL (7.8-10.44); Carbon Dioxide 24 mmol/L (23-31); Chloride 108 mmol/L (98-107); Estimated GFR-MDRD 55; Glucose 128 mg/dL (80-115); Potassium 3.7 mmol/L (3.5-5.1); Protein, Total 6.9 g/dL (6.0-8.3); Sodium 143 mmol/L (136-145)
[2017-05-02 15:03] LABS: CKMB 2.2 ng/mL (0-6.6); Troponin I Less than 0.010 ng/mL (< 0.028)
[2017-05-02] MEDS ORDERED: Acetaminophen 500 MG TAB ONE (15:17)
--- NOTE | 2017-05-02 22:05 | RAD ---
PORTABLE CHEST 05/02/17 An AP portable film at 1444 is compared with a 01/09/17 study. The heart is borderline in size but no different than before. There are no signs of pulmonary edema, congestion, or large pleural effusions. The upper lobes are clear. There is some increased density over the right lower lobe. I cannot tell if this is due to overlying soft tissues or an actual infiltrate in the lung. If there were any sign s and symptoms suggestive of pneumonia, then a good upright PA and lateral view done electively [facility] t be in order. IMPRESSION: 1. Borderline heart size, unchanged. 2. Right basilar density. Soft tissue shadow versus infiltrate. See above. Code T POS: HOME
== END 2017-05-02 16:30 | disposition home or self-care (01) ==
LOC: BURERS 14:30
DX: J98.01 Acute bronchospasm (principal); I10 Essential (primary) hypertension; J44.9 Chronic obstructive pulmonary disease, unspecified; F41.9 Anxiety disorder, unspecified; F32.9 Major depressive disorder, single episode, unspecified; F17.210 Nicotine dependence, cigarettes, uncomplicated; Z79.899 Other long term (current) drug therapy
CPT/HCPCS: 71010; 80053; 82553; 84484; 85025; 93005; 94640; 94760; 96374; J2930; J7620

== ENCOUNTER 2017-06-10 14:32 | Emergency (ER) | payer MEDICARE ==
[2017-06-10] MEDS ORDERED: Morphine 4 MG/ML Carpuject ONE (15:14)
[2017-06-10 15:15] LABS: #Basophils 0.1 thou/uL (0.0-0.2); #Eosinphils 0.2 thou/uL (0.0-0.7); #Lymphocytes 2.1 thou/uL (1.20-3.40); #Monocytes 0.7 thou/uL (0.11-0.59); #Neutrophils 5.9 thou/uL (1.40-6.50); %Basophils 0.8 % (0.0-1.0); %Lymphocytes 23.2 % (21.0-51.0); %Monocytes 7.7 % (0.0-10.0); %Neutrophils 66.2 % (42.0-75.0); Hemoglobin 14.4 g/dL (12.0-16.0); Mean Corpuscular HGB CONC 31.3 g/dL (32.0-36.0); Mean Corpuscular Hemoglobin 29.5 pg (27.0-31.0); Mean Corpuscular Volume 94.2 fl (81.0-99.0); Mean Platelet Volume 7.9 fL (7.4-10.4); Platelet Count 216 thou/uL (130-400); RBC Distribution Width 12.2 % (11.5-14.5); Red Blood Cell (RBC) Count 4.88 mill/uL (4.20-5.40); White Blood Cell (WBC) Count 8.9 thou/uL (4.8-10.8)
[2017-06-10 15:28] LABS: Anion Gap 15 mmol/L (10-20); BUN (Urea Nitrogen) 22 mg/dL (9.8-20.1); Calc. Creatinine Clearance 0 mL/min (70-130); Calcium 9.5 mg/dL (7.8-10.44); Carbon Dioxide 25 mmol/L (23-31); Chloride 106 mmol/L (98-107); Estimated GFR-MDRD 51; Glucose 130 mg/dL (80-115); Potassium 4.1 mmol/L (3.5-5.1); Sodium 142 mmol/L (136-145)
[2017-06-10 15:31] LABS: Bilirubin Negative (Negative); Blood, Urine Negative (Negative); Clarity Clear (Clear); Glucose, Urine (Dipstick) Negative (Negative); Leukocyte Trace (Negative); Nitrite Negative (Negative); Protein, Urine (Dipstick) Negative (Neg-Trace); Specific Gravity, Urine 1.015 (1.005-1.030); Urobilinogen 0.2 mg/dL (0.2-1.0); pH, Urine 5.5 (5.0-9.0)
[2017-06-10 15:36] LABS: Bacteria/HPF 3+ HPF (None Seen); RBC/HPF 0-3 HPF (0-3); Squamous Epithelial 0-3 HPF (0-3)
[2017-06-10] MEDS ORDERED: methylPREDNISolone Sod Succ/PF 125 MG/2 ML VIAL ONE (16:36)
[2017-06-10] MEDS ORDERED: HYDROcodone/Acetaminophen 5/325 mg Tablet ONE (16:38)
--- NOTE | 2017-06-10 20:07 | RAD ---
CHEST TWO VIEWS: 06/10/2017 Comparison is made with a 05/02/2017 portable film, as well as a 01/09/2017 two-view study. Cardiomegaly is about the same as before. There are no congestive changes or pleural effusions. The lungs are hyperexpanded consistent with the diagnosis of COPD. As was noted on the prior study, the re is relatively increased density in the right base, especially medially. The lateral view also sug gests there is a lower lobe infiltrate. This seems slightly denser than it was last month. While th e findings are most likely infectious in nature, given the lack of clearing over time, and it being s omewhat difficult to see this patient's lung bases well, I would recommend considering an elective CT of the chest to remove all doubt about any pathology in this location. The upper lobes are clear. T he trachea is midline. IMPRESSION: 1. Mild cardiomegaly with no congestive change. 2. Right basilar haziness persists and may actually be slightly more so than before. An infiltrate h ere is suspected. Given little to no improvement over time, I would recommend consideration of an el ective CT of the thorax to be sure there is no other underlying pathology here. Code T. POS: HOME
== END 2017-06-10 16:55 | disposition home or self-care (01) ==
LOC: BURERS 14:32
DX: J20.9 Acute bronchitis, unspecified (principal); M54.5 Low back pain; E11.9 Type 2 diabetes mellitus without complications; I10 Essential (primary) hypertension; J44.9 Chronic obstructive pulmonary disease, unspecified; F41.9 Anxiety disorder, unspecified; F32.9 Major depressive disorder, single episode, unspecified; F17.210 Nicotine dependence, cigarettes, uncomplicated; Z79.82 Long term (current) use of aspirin; Z79.899 Other long term (current) drug therapy; Z79.1 Long term (current) use of non-steroidal anti-inflammatories (NSAID)
CPT/HCPCS: 51701; 71020; 80048; 81003; 81015; 85025; 94760; 96361; 96374; 96375; A4353; J2270; J2930

== ENCOUNTER 2017-07-16 10:47 | Inpatient (IN) | payer MEDICARE ==
[2017-07-16] MEDS ORDERED: Magnesium Sulfate 2 GM/100 ML BAG ONE (11:06)
[2017-07-16] MEDS ORDERED: Albuterol Sulfate 1.25 MG/3 ML NEB ONE ×3 (11:06→11:39)
[2017-07-16] MEDS ORDERED: methylPREDNISolone Sod Succ/PF 125 MG/2 ML VIAL ONE ×2 (11:06→11:08)
[2017-07-16 11:14] LABS: #Basophils 0.2 thou/uL (0.0-0.2); #Eosinphils 0.1 thou/uL (0.0-0.7); #Lymphocytes 3.3 thou/uL (1.20-3.40); %Basophils 1.3 % (0.0-1.0); %Eosinophils 1.1 % (0.0-10.0); %Lymphocytes 26.2 % (21.0-51.0); %Monocytes 7.9 % (0.0-10.0); %Neutrophils 63.5 % (42.0-75.0); Hemoglobin 15.4 g/dL (12.0-16.0); Mean Corpuscular HGB CONC 32.7 g/dL (32.0-36.0); Mean Corpuscular Hemoglobin 30.2 pg (27.0-31.0); Mean Corpuscular Volume 92.2 fl (81.0-99.0); Mean Platelet Volume 8.1 fL (7.4-10.4); Platelet Count 252 thou/uL (130-400); RBC Distribution Width 13.3 % (11.5-14.5); White Blood Cell (WBC) Count 12.5 thou/uL (4.8-10.8)
[2017-07-16 11:18] LABS: Base Excess -0.1 mEq/L (-2 - +2); pH (venous) 7.4 (7.35-7.45)
--- NOTE | 2017-07-16 11:22 | RAD ---
AP CHEST: Indication: Dyspnea. Comparison: 09-02-16 FINDINGS: There is persistent airspace opacity within the right lung base which was present on the comparison e xam dated 05-02-17. This persisted on a follow up examination dated 06-03-17. Cardiomegaly persists. No pleural effusion or pneumothorax is evident. No acute osseous abnormality is evident. IMPRESSION: Persistent right medial basilar opacity. Recommend CT of the thorax for further evaluation. POS: BI
[2017-07-16 11:29] LABS: ALT (SGPT) 12 U/L (8-55); AST (SGOT) 16 U/L (5-34); Albumin 4.1 g/dL (3.4-4.8); Alkaline Phosphatase 77 U/L (40-150); Anion Gap 17 mmol/L (10-20); BUN (Urea Nitrogen) 17 mg/dL (9.8-20.1); Bilirubin, Total 0.6 mg/dL (0.2-1.2); Calc. Creatinine Clearance 0 mL/min (70-130); Calcium 9.7 mg/dL (7.8-10.44); Carbon Dioxide 23 mmol/L (23-31); Chloride 106 mmol/L (98-107); Estimated GFR-MDRD 48; Globulin 3.4 g/dL (2.4-3.5); Glucose 106 mg/dL (80-115); Potassium 4.5 mmol/L (3.5-5.1); Protein, Total 7.5 g/dL (6.0-8.3); Sodium 141 mmol/L (136-145)
[2017-07-16 11:31] LABS: CKMB 3.5 ng/mL (0-6.6); Troponin I 0.011 ng/mL (< 0.028)
[2017-07-16] MEDS ORDERED: Azithromycin 500 MG VIAL ONE (11:39)
[2017-07-16] MEDS ORDERED: Acetaminophen 500 MG TAB ONE (11:39)
[2017-07-16 14:25] VITALS: BMI 50.8
[2017-07-16] MEDS ORDERED: Acetaminophen 325 MG TAB PO PRN (14:44)
[2017-07-16] MEDS ORDERED: Ondansetron ODT 4 MG TAB SL PRN (14:44)
[2017-07-16] MEDS ORDERED: HYDROcodone/Acetaminophen 5/325 mg Tablet PO PRN (14:44)
[2017-07-16] MEDS ORDERED: Ondansetron HCl/PF 4 MG/2 ML Vial IVP PRN (14:44)
[2017-07-16] MEDS ORDERED: FLU VACC TS2017-18 (>65YR) 0.5 ML SYRINGE IM ONE (14:45)
[2017-07-16] MEDS: Dextrose 5 %-0.45 % NaCl 1,000 ML IV SCH ×2 (15:21→21:28)
[2017-07-16] MEDS: HYDROcodone/Acetaminophen 5/325 mg Tablet PO PRN ×2 (15:24→21:03)
[2017-07-16] MEDS: Albuterol Sulfate 2.5 mg/3 ml Neb NEB SCH ×2 (18:11→22:47)
[2017-07-16] MEDS: methylPREDNISolone Sod Succ/PF 125 MG/2 ML VIAL IVP SCH (20:56)
[2017-07-17] MEDS: methylPREDNISolone Sod Succ/PF 125 MG/2 ML VIAL IVP SCH ×3 (03:23→20:07)
[2017-07-17] MEDS: Albuterol Sulfate 2.5 mg/3 ml Neb NEB SCH ×2 (03:23→05:58)
[2017-07-17] MEDS: Dextrose 5 %-0.45 % NaCl 1,000 ML IV SCH (04:29)
[2017-07-17] MEDS ORDERED: Albuterol Sulfate 2.5 mg/3 ml Neb NEB PRN (08:25)
[2017-07-17] MEDS ORDERED: Hydrochlorothiazide 25 MG TAB PO PRN (08:25)
[2017-07-17] MEDS ORDERED: Albuterol Sulfate 1.25 MG/3 ML NEB ONE (08:26)
[2017-07-17] MEDS ORDERED: Lorazepam 2 MG/ML VIAL SLOW IVP ONE (08:45)
[2017-07-17] MEDS ORDERED: Dextrose 5% in Water 1,000 ML IV PRN (08:46)
[2017-07-17] MEDS ORDERED: Dextrose 50% Abboject 50 ML SYRINGE SLOW IVP PRN (08:46)
[2017-07-17] MEDS ORDERED: Dextrose 5 %-0.45 % NaCl 1,000 ML IV SCH (08:47)
[2017-07-17] MEDS ORDERED: Spiriva 18 MCG CAP (Box of 5 Caps) INH SCH (09:00)
[2017-07-17] MEDS ORDERED: CeleCOXIB 100 MG CAP PO SCH (09:00)
[2017-07-17] MEDS ORDERED: clonazePAM 0.5 MG TAB PO SCH (09:00)
[2017-07-17] MEDS: Aspirin 81 mg Enteric Coated Tablet PO SCH (09:32)
[2017-07-17] MEDS: Docusate 100 MG CAP PO SCH ×2 (09:32→20:10)
[2017-07-17] MEDS: guaiFENesin ER 600 MG TAB PO SCH ×2 (09:33→20:10)
[2017-07-17] MEDS: clonazePAM 0.5 MG TAB PO SCH ×2 (09:33→20:11)
[2017-07-17] MEDS: DULoxetine 30 MG CAP PO SCH ×2 (09:33→20:11)
[2017-07-17] MEDS: Lisinopril 10 MG TAB PO SCH (09:33)
[2017-07-17] MEDS: Floranex Packet PO SCH (09:34)
[2017-07-17] MEDS ORDERED: Iopamidol 370 76% 100 ML VIAL ONE (10:57)
[2017-07-17] MEDS ORDERED: traMADol HCl 50 MG TAB PO PRN (11:59)
[2017-07-17] MEDS: Azithromycin 500 MG in Sodium Chloride 0.9% 250 ML 250 ML IVPB SCH (13:12)
[2017-07-17] MEDS: traMADol HCl 50 MG TAB PO PRN ×2 (13:33→20:13)
--- NOTE | 2017-07-17 13:44 | HP ---
CHIEF COMPLAINT: Shortness of breath. HISTORY OF PRESENT ILLNESS: A 67-year-old female with past medical history of coronary art leonie disease and COPD, O2 dependent, presented to the emergency room with complaint of dyspnea and paul st discomfort as well as headache. The patient reports tightness in her chest with wheezing. The pa in is dull in nature and rated as 7/10. The patient reported onset of symptoms suddenly with worseni ng of condition progressive over approximately 3 weeks. Denies any fever. She did have some diaphor esis and dyspnea on exertion, also admitted to anxiety. The chest pain was described as pleuritic in nature, worse with deep inspiration, and exacerbated by exercise. The patient reports not missing h er home regimen prior to admission. PAST MEDICAL HISTORY: 1. Type 2 diabetes. 2. Chronic obstructive pulmonary disease, on home O2 with 2-3 liters per minute baseline O2. 3. Hypertension. 4. Anxiety. 5. Coronary artery disease. 6. Substance abuse, in remission. 7. History of DVT x3; one after childbirth and two after trauma. 8. Tobacco abuse. 9. Major depression. 10. Vitamin D deficiency. 11. Infrarenal abdominal aortic aneurysm. 12. Hyperlipidemia. 13. Chronic kidney disease stage 3. 14. Hypertension. PAST SURGICAL HISTORY: 1. Bilateral tubal ligation. 2. Right breast lumpectomy. 3. Lymphadenectomy. 4. Cholecystectomy. SOCIAL HISTORY: Positive tobacco abuse at less than half a pack per day. The patient has been inter mittently noncompliant with a quit date of January 2017. She smoked for over 50 years at least half a p ack a day. Denies alcohol or illicit drug use. Past history of cocaine abuse. FAMILY HISTORY: Father is at age 79 with history of diabetes, hypertension, migraine, hyper lipidemia, atrial fibrillation. Mother at 79 with a history of blood disorder and autoimmun e disease, varicose veins, depression, hormone replacement therapy. One brother who of stomach cancer at age 4 and another brother at age 26 due to muscular cancer unspecified. MEDICATIONS: 1. Clonazepam 0.5 mg p.o. b.i.d. 2. Hydrochlorothiazide 25 mg p.o. daily p.r.n. 3. Celecoxib 200 mg p.o. daily. 4. Aspirin 81 mg p.o. daily. 5. Breo Ellipta 1 inhalation q.p.m. 6. Colace 100 mg p.o. b.i.d. 7. Duloxetine 60 mg p.o. b.i.d. 8. Singulair 10 mg p.o. q.p.m. 9. Lisinopril 10 mg p.o. daily. 10. Mucinex 1200 mg p.o. b.i.d. 11. Spiriva 18 mcg inhaled daily. 12. Simvastatin 40 mg p.o. q.p.m. 13. DuoNeb 3 mL nebulized q.i.d. p.r.n. REVIEW OF SYSTEMS: GENERAL: Denies fever. Positive generalized weakness due to dyspnea. No chills. HEENT: Denies vision changes, sore throat, ear pain, nasal congestion. CARDIOVASCULAR: Denies angina, lower extremity edema, PND, orthopnea. RESPIRATORY: Positive cough, positive wheezing, no hemoptysis. Positive shortness of breath, positi ve dyspnea on exertion. GASTROINTESTINAL: Denies constipation, diarrhea, nausea, vomiting, heartburn, hematemesis, bilious e mesis, melena, hematochezia. GENITOURINARY: Denies dysuria, frequency, urgency, occasional stress incontinence. NEUROLOGIC: Denies focal weakness, numbness, paresthesias, changes in vision, slurred speech. PSYCHIATRIC: Positive anxiety. No depression above baseline. No hallucinations. LYMPHATIC: Denies edema above baseline. PHYSICAL EXAMINATION: VITAL SIGNS: This a.m. temperature 97.2, heart rate 100, respirations 28, 92% on 3 liters, blood pre ssure 180/70. GENERAL: Well-developed obese female, in no acute distress, tremulous. Nondiaphoretic. S peaks in complete sentences. HEENT: Pupils are equally round and reactive to light and accommodation. NEUROLOGICAL: Extraocular muscles are intact. Nares patent without discharge. Tongue protrudes in the midline. NECK: Supple without lymphadenopathy, thyromegaly, JVD, or bruit. HEART: Regular rate and rhythm, normal S1 and S2. No murmurs, clicks, rubs, or gallops. LUNGS: Diminished air entry throughout with expiratory wheezes in all yanez. No crackles. ABDOMEN: Positive bowel sounds in all four quadrants. Soft, nontender, and nondistended. No masses , guarding, or rebound tenderness. EXTREMITIES: No cyanosis, clubbing, or edema. NEUROLOGIC: Cranial nerves II through XII grossly intact. No focal deficits. LYMPHATIC: No edema. PSYCHIATRIC: Anxious appearing. LABORATORY DATA: White count 12.5, hemoglobin 15.4, hematocrit 47.0, platelets 254. Blood gas in ED ; pH 7.4, pCO2 of 40.9, pO2 of 73, O2 sat 93.1%. Sodium 141, potassium 4.5, chloride 106, bicarb 23 , BUN 17, creatinine 1.13, glucose 106, calcium 9.7, AST 16, ALT 12, CK-MB 3.5, troponin I 0.011, BNP 310, albumin 4.1. IMAGING: Chest x-ray shows a persistent right medial basilar opacity. Recommend CT of the thorax fo r further evaluation. ASSESSMENT AND PLAN: 1. Acute exacerbation of chronic obstructive pulmonary disease. The patient was given magnesium, Du oNeb therapy, CPAP in the ER. She did well for a period of time off CPAP and was able to titrate raul n to 3 liters. Her tachypnea improved. Her air entry improved. She was treated with vancomycin and Zithromax for antibiotic coverage. She was given IV Solu-Medrol. We will continue O2, DuoNeb with albuterol p.r.n., Zithromax, Solu-Medrol per IV. We will get physical therapy and occupational thera py consultation as the patient's condition improves. The patient will be educated on smoking cessati on. 2. Type 2 diabetes. The patient will have Accu-Cheks before meals and at bedtime with a mild correc tion protocol with lispro. Usual parameters will apply. The patient will be continued on her ADA di et. 3. Hypertension. The patient will be continued on her home regimen. 4. Anxiety. The patient is anxious. We will administer 0.5 mg lorazepam per IV x1 and continue her clonazepam 0.5 mg p.o. b.i.d. throughout her hospital course. 5. History of drug abuse. The patient will be discontinued on [place] and give tramadol p.r.n. for mi ld to moderate pain per patient request. 6. Depression and anxiety. The patient will be continued on her duloxetine. 7. Hyperlipidemia. The patient's statin will be continued. 8. Chronic kidney disease stage 3. Stable. We will continue to monitor. Repeat labs in the a.m. 9. Prophylaxis. The patient has refused SCDs. We will give Lovenox. We will start a PPI. CODE STATUS: FULL CODE.
--- NOTE | 2017-07-17 13:46 | CT ---
CT OF THE CHEST WITH CONTRAST: Date: 07-17-17 Technique: Axial slices were acquired after injecting IV contrast. Coronal and sagittal reconstructio ns were performed. History: Abnormal right basilar opacity on plain chest radiograph. FINDINGS: The abnormal opacity seen in the right base medially appears to be a prominent fat pad in the right c ardiophrenic angle. No mass was demonstrated here. There is no infiltrate to suggest pneumonia. No pu lmonary nodule, effusions, or other acute parenchymal change were seen. There are a few areas of pleu ral thickening in the right anterior chest which have a benign appearance. There is a low density area wedged between the right and left atria that measures 3.8 x 2.5 cm. It me asures strongly as fat density with average CT values of -74 units in the area circumscribed. This is located on the right side of the heart and has the appearance of a cardiac lipoma. These are general ly benign, although occasionally be a cause for arrhythmias. The remainder of the mediastinum showed no evidence of mediastinal mass or adenopathy. Coronary artery calcifications are present in both the left and right coronary circulations. Scans into the upper abdomen showed no gross acute findings in the areas shown. There is probably a s mall 1.9 cm adenoma of the left adrenal gland as the slightly bulbous area shown clearly measures as fat density. The aorta is quite tortuous as it penetrates the diaphragm and actually translucently we aves to the right side of the body. IMPRESSION: 1. Abnormal density seen on chest x-ray is a prominent cardiac fat pad. No worrisome pathology is see n here or elsewhere in the lung parenchyma. 2. 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 See above. 3. Coronary arterial sclerosis. 4. Probable small left adrenal adenoma. Based upon the current appearance, I do not feel further work up is needed. POS: HOME
[2017-07-17] MEDS: HumaLOG 300 UNITS/3 ML VIAL SC PRN ×2 (16:00→18:05)
[2017-07-17] MEDS: Mometasone/Formoterol 60 PUFF AER INH SCH (18:10)
[2017-07-17] MEDS: Montelukast Sodium 10 mg Tablet PO SCH (20:11)
[2017-07-17] MEDS: Atorvastatin Calcium 10 MG TAB PO SCH (20:12)
[2017-07-17] MEDS: CeleCOXIB 100 MG CAP PO SCH (20:12)
[2017-07-17] MEDS: Enoxaparin Sodium 40 MG/0.4 ML SYRINGE SC SCH (20:13)
[2017-07-18] MEDS ORDERED: Dextrose 5 %-0.45 % NaCl 1,000 ML IV SCH (03:30)
[2017-07-18] MEDS: methylPREDNISolone Sod Succ/PF 125 MG/2 ML VIAL IVP SCH ×3 (04:11→18:16)
[2017-07-18] MEDS: traMADol HCl 50 MG TAB PO PRN ×3 (04:12→20:09)
[2017-07-18 06:10] LABS: #Monocytes 0.6 thou/uL (0.11-0.59); #Neutrophils 14.9 thou/uL (1.40-6.50); %Basophils 0.2 % (0.0-1.0); %Lymphocytes 6.2 % (21.0-51.0); %Monocytes 3.7 % (0.0-10.0); %Neutrophils 89.9 % (42.0-75.0); Hemoglobin 12.6 g/dL (12.0-16.0); Mean Corpuscular HGB CONC 31.7 g/dL (32.0-36.0); Mean Corpuscular Hemoglobin 29.6 pg (27.0-31.0); Mean Corpuscular Volume 93.6 fl (81.0-99.0); Mean Platelet Volume 8.3 fL (7.4-10.4); Platelet Count 213 thou/uL (130-400); RBC Distribution Width 13.5 % (11.5-14.5); Red Blood Cell (RBC) Count 4.25 mill/uL (4.20-5.40); White Blood Cell (WBC) Count 16.5 thou/uL (4.8-10.8)
[2017-07-18] MEDS: Mometasone/Formoterol 60 PUFF AER INH SCH ×2 (06:12→18:11)
[2017-07-18 06:20] LABS: Anion Gap 13 mmol/L (10-20); BUN (Urea Nitrogen) 17 mg/dL (9.8-20.1); Calc. Creatinine Clearance 101 mL/min (70-130); Calcium 9.4 mg/dL (7.8-10.44); Carbon Dioxide 26 mmol/L (23-31); Chloride 105 mmol/L (98-107); Estimated GFR-MDRD 54; Glucose 200 mg/dL (80-115); Potassium 5.2 mmol/L (3.5-5.1); Sodium 139 mmol/L (136-145)
[2017-07-18] MEDS: Aspirin 81 mg Enteric Coated Tablet PO SCH (08:14)
[2017-07-18] MEDS: Lisinopril 10 MG TAB PO SCH (08:14)
[2017-07-18] MEDS: DULoxetine 30 MG CAP PO SCH ×2 (08:15→20:06)
[2017-07-18] MEDS: Docusate 100 MG CAP PO SCH ×2 (08:15→20:06)
[2017-07-18] MEDS: clonazePAM 0.5 MG TAB PO SCH ×2 (08:15→20:07)
[2017-07-18] MEDS: guaiFENesin ER 600 MG TAB PO SCH ×2 (08:16→20:07)
[2017-07-18] MEDS: Famotidine 20 MG TAB PO SCH (08:16)
[2017-07-18] MEDS: Floranex Packet PO SCH (08:16)
[2017-07-18] MEDS: HumaLOG 300 UNITS/3 ML VIAL SC PRN ×2 (09:29→12:42)
[2017-07-18] MEDS: Azithromycin 500 MG in Sodium Chloride 0.9% 250 ML 250 ML IVPB SCH (12:49)
[2017-07-18] MEDS: CeleCOXIB 100 MG CAP PO SCH (20:06)
[2017-07-18] MEDS: Montelukast Sodium 10 mg Tablet PO SCH (20:07)
[2017-07-18] MEDS: Atorvastatin Calcium 10 MG TAB PO SCH (20:07)
[2017-07-18] MEDS: Enoxaparin Sodium 40 MG/0.4 ML SYRINGE SC SCH (20:08)
[2017-07-18] MEDS ORDERED: guaiFENesin ER 600 MG TAB PO SCH (21:00)
[2017-07-19] MEDS: traMADol HCl 50 MG TAB PO PRN ×2 (01:27→08:39)
[2017-07-19] MEDS: methylPREDNISolone Sod Succ/PF 125 MG/2 ML VIAL IVP SCH (04:18)
[2017-07-19 05:44] LABS: #Lymphocytes 1.1 thou/uL (1.20-3.40); #Monocytes 0.8 thou/uL (0.11-0.59); #Neutrophils 11.6 thou/uL (1.40-6.50); %Basophils 0.2 % (0.0-1.0); %Lymphocytes 8.3 % (21.0-51.0); %Neutrophils 85.5 % (42.0-75.0); Hemoglobin 12.5 g/dL (12.0-16.0); Mean Corpuscular HGB CONC 31.6 g/dL (32.0-36.0); Mean Corpuscular Hemoglobin 29.8 pg (27.0-31.0); Mean Corpuscular Volume 94.4 fl (81.0-99.0); Mean Platelet Volume 8.1 fL (7.4-10.4); Platelet Count 227 thou/uL (130-400); RBC Distribution Width 13.8 % (11.5-14.5); Red Blood Cell (RBC) Count 4.18 mill/uL (4.20-5.40); White Blood Cell (WBC) Count 13.6 thou/uL (4.8-10.8)
[2017-07-19 05:55] LABS: ALT (SGPT) 18 U/L (8-55); AST (SGOT) 20 U/L (5-34); Albumin 3.8 g/dL (3.4-4.8); Alkaline Phosphatase 51 U/L (40-150); Anion Gap 15 mmol/L (10-20); BUN (Urea Nitrogen) 26 mg/dL (9.8-20.1); Bilirubin, Total 0.4 mg/dL (0.2-1.2); Calc. Creatinine Clearance 83 mL/min (70-130); Calcium 9.3 mg/dL (7.8-10.44); Carbon Dioxide 25 mmol/L (23-31); Chloride 103 mmol/L (98-107); Estimated GFR-MDRD 43; Globulin 2.7 g/dL (2.4-3.5); Glucose 157 mg/dL (80-115); Potassium 4.8 mmol/L (3.5-5.1); Protein, Total 6.5 g/dL (6.0-8.3); Sodium 138 mmol/L (136-145)
[2017-07-19] MEDS: Mometasone/Formoterol 60 PUFF AER INH SCH (06:07)
[2017-07-19 06:38] VITALS: TEMP 97.4
--- NOTE | 2017-07-19 07:59 | DIS ---
DATE OF ADMISSION: 07/16/2017 DATE OF DISCHARGE FROM INPATIENT ACUTE TO SWING BED PATIENT: 07/19/2017. ADMISSION DIAGNOSES: Chronic obstructive pulmonary disease exacerbation, leukocytosis, type 2 diabetes mellitus, hypertension, physical deconditioning. SECONDARY DIAGNOSES: Chronic kidney disease stage 3, hyperlipidemia, anxiety, depression, obesity, cardiac lipoma. PROCEDURES: Chest x-ray on 07/16/2017 showed persistent right medial basilar opacity, recommend CT of the thorax for further evaluation. Chest CT on 2017 showed abnormal density seen on chest x-ray with prominent cardiac fat pad. No worrisome pathology is seen here or elsewhere along with parenchyma. Findings consistent with a 3.8 x 2.5 cm cardiac lipoma on the right side of the heart wedged between the right and left atria, coronary arterial sclerosis, probable small left adrenal adenoma based upon the current appearance, do not feel further workup is needed. HOSPITAL COURSE: A 67-year-old female with oxygen dependent COPD who was admitted for an exacerbation of this underlying issue with subsequent workup revealing a mild leukocytosis and imaging as stated above. She was empirically started on IV azithromycin and Solu-Medrol along with scheduled nebulized treatments and continued on supplemental oxygen. Her leukocytosis has begun to trend down after initially increasing which was felt to be secondary to steroid therapy. Her blood cultures have returned negative after 48 hours. She has remained afebrile. Her respiratory function has improved during her stay; however, she feels fatigued and due to this, physical therapy has been initiated. The patient will be transitioned at this time from inpatient acute to swing bed status where she will receive an additional treatment of Solu- Medrol, continued nebs, supplemental oxygen and plan for continued azithromycin until her leukocytosis has resolved; CBC and metabolic panel will be obtained for review tomorrow morning. The patient lives alone with family members nearby ; she will be more appropriate for discharge upon return to her baseline respiratory status and being able to display sufficient strength to successfully transition back to her home setting. Of note, patient's blood pressure has been trending up; therefore, her lisinopril will be increased from 10 mg to 20 mg daily. She may f/u with cardiology as an outpatient regarding the noted cardiac lipoma. DISPOSITION: The patient will transition from inpatient acute to swing bed status. DISCHARGE MEDICATIONS: Her usual medications will be resumed other than lisinopril being increased from 10 mg to 20 mg daily. Other medications are clonazepam 0.5 mg p.o. b.i.d., hydrochlorothiazide 25 mg p.o. daily, Celebrex 200 mg p.o. daily, aspirin 81 mg p.o. daily, Breo one inhalation daily, although here she is on Dulera twice a day, Colace 100 mg p.o. b.i.d., duloxetine 60 mg p.o. b.i.d., Singulair 10 mg p.o. daily, Mucinex 1200 mg p.o. b.i.d., Spiriva 18 mcg daily, simvastatin 40 mg p.o. at bedtime, DuoNeb 3 mL nebulized q.i.d. p.r.n. She will continue a prophylaxis here with famotidine 20 mg p.o. daily, Lovenox 40 mg daily, and Humalog sliding scale with Zofran p.r.n. and tramadol p.r.n. MTDD
[2017-07-19] MEDS ORDERED: Lisinopril 10 MG TAB PO SCH (09:00)
[2017-07-19] MEDS: Docusate 100 MG CAP PO SCH (09:09)
[2017-07-19] MEDS: Floranex Packet PO SCH (09:09)
[2017-07-19] MEDS: DULoxetine 30 MG CAP PO SCH (09:09)
[2017-07-19] MEDS: Famotidine 20 MG TAB PO SCH (09:10)
[2017-07-19] MEDS: Aspirin 81 mg Enteric Coated Tablet PO SCH (09:10)
[2017-07-19] MEDS: clonazePAM 0.5 MG TAB PO SCH (09:10)
[2017-07-19] MEDS: guaiFENesin ER 600 MG TAB PO SCH (09:10)
[2017-07-19 09:22] VITALS: BP 147/88
== END 2017-07-19 10:02 | disposition swing bed (61) | DRG 191 ==
LOC: BURERS 10:47 → BURMED 13:25 → UNDOADMIN 13:45 → BURMED 13:45
PROVIDERS: ADMIT Family Medicine; ATTEND Family Medicine
PROC: 5A09357 Assistance with Respiratory Ventilation, Less than 24 Consecutive Hours, Continuous Positive Airway Pressure (ICD-10-PCS; principal; 2017-07-16)
DX: J44.1 Chronic obstructive pulmonary disease with (acute) exacerbation (principal); Z68.43 Body mass index [BMI] 50.0-59.9, adult; E11.22 Type 2 diabetes mellitus with diabetic chronic kidney disease; N18.3 Chronic kidney disease, stage 3 (moderate); I10 Essential (primary) hypertension; F41.9 Anxiety disorder, unspecified; F41.8 Other specified anxiety disorders; E78.5 Hyperlipidemia, unspecified; F19.11 Other psychoactive substance abuse, in remission; F17.210 Nicotine dependence, cigarettes, uncomplicated; I12.9 Hypertensive chronic kidney disease with stage 1 through stage 4 chronic kidney disease, or unspecified chronic kidney disease; E66.9 Obesity, unspecified; D17.79 Benign lipomatous neoplasm of other sites
CPT/HCPCS: 36415; 36416; 71045; 71260; 80048; 80053; 82553; 82805; 83880; 84484; 85025; 87040; 93005; 94640; 94660; 94760; 96365; 96367; 96375; A4216; J0456; J1650; J2060; J2930; J3370; J3475; J7050; J7611; J7620; Q0162

== ENCOUNTER 2017-07-19 10:10 | Inpatient (IN) | payer MEDICARE ==
[2017-07-19 11:24] VITALS: BMI 46.5
[2017-07-19] MEDS ORDERED: Albuterol Sulfate 2.5 mg/3 ml Neb NEB PRN (11:30)
[2017-07-19] MEDS ORDERED: Ondansetron HCl/PF 4 MG/2 ML Vial IVP PRN (11:39)
[2017-07-19] MEDS ORDERED: Ondansetron ODT 4 MG TAB SL PRN (11:39)
[2017-07-19] MEDS ORDERED: Acetaminophen 325 MG TAB PO PRN (11:40)
[2017-07-19] MEDS ORDERED: Hydrochlorothiazide 25 MG TAB PO PRN (11:43)
[2017-07-19] MEDS ORDERED: traMADol HCl 50 MG TAB PO PRN (11:46)
[2017-07-19] MEDS ORDERED: methylPREDNISolone Sod Succ/PF 125 MG/2 ML VIAL IVP SCH (12:00)
[2017-07-19] MEDS: Azithromycin 500 MG in Sodium Chloride 0.9% 250 ML 250 ML IVPB SCH (13:08)
[2017-07-19] MEDS: traMADol HCl 50 MG TAB PO PRN ×2 (14:50→20:41)
[2017-07-19] MEDS: Lorazepam 0.5 MG TAB PO PRN (17:58)
[2017-07-19] MEDS: Mometasone/Formoterol 60 PUFF AER INH SCH (18:01)
[2017-07-19] MEDS: guaiFENesin ER 600 MG TAB PO SCH (20:40)
[2017-07-19] MEDS: DULoxetine 30 MG CAP PO SCH (20:40)
[2017-07-19] MEDS: Atorvastatin Calcium 10 MG TAB PO SCH (20:40)
[2017-07-19] MEDS: Docusate 100 MG CAP PO SCH (20:40)
[2017-07-19] MEDS: clonazePAM 0.5 MG TAB PO SCH (20:41)
[2017-07-19] MEDS: CeleCOXIB 100 MG CAP PO SCH (20:41)
[2017-07-19] MEDS: Montelukast Sodium 10 mg Tablet PO SCH (20:41)
[2017-07-19] MEDS: Enoxaparin Sodium 40 MG/0.4 ML SYRINGE SC SCH (20:42)
[2017-07-20 06:07] LABS: #Basophils 0.1 thou/uL (0.0-0.2); #Lymphocytes 2.1 thou/uL (1.20-3.40); #Monocytes 1.1 thou/uL (0.11-0.59); #Neutrophils 8.8 thou/uL (1.40-6.50); %Basophils 0.4 % (0.0-1.0); %Eosinophils 0.1 % (0.0-10.0); %Lymphocytes 17.5 % (21.0-51.0); %Monocytes 9.2 % (0.0-10.0); %Neutrophils 72.8 % (42.0-75.0); Hemoglobin 12.2 g/dL (12.0-16.0); Mean Corpuscular HGB CONC 30.8 g/dL (32.0-36.0); Mean Corpuscular Hemoglobin 28.9 pg (27.0-31.0); Mean Corpuscular Volume 93.9 fl (81.0-99.0); Mean Platelet Volume 7.9 fL (7.4-10.4); Platelet Count 206 thou/uL (130-400); RBC Distribution Width 13.8 % (11.5-14.5); Red Blood Cell (RBC) Count 4.21 mill/uL (4.20-5.40); White Blood Cell (WBC) Count 12.1 thou/uL (4.8-10.8)
[2017-07-20 06:12] LABS: ALT (SGPT) 18 U/L (8-55); AST (SGOT) 19 U/L (5-34); Albumin 3.8 g/dL (3.4-4.8); Alkaline Phosphatase 52 U/L (40-150); Anion Gap 13 mmol/L (10-20); BUN (Urea Nitrogen) 31 mg/dL (9.8-20.1); Bilirubin, Total 0.5 mg/dL (0.2-1.2); Calc. Creatinine Clearance 70 mL/min (70-130); Calcium 9.3 mg/dL (7.8-10.44); Carbon Dioxide 28 mmol/L (23-31); Chloride 102 mmol/L (98-107); Estimated GFR-MDRD 36; Globulin 2.5 g/dL (2.4-3.5); Glucose 117 mg/dL (80-115); Potassium 4.4 mmol/L (3.5-5.1); Protein, Total 6.3 g/dL (6.0-8.3); Sodium 139 mmol/L (136-145)
[2017-07-20] MEDS: Lorazepam 0.5 MG TAB PO PRN ×3 (06:19→19:59)
[2017-07-20] MEDS: Mometasone/Formoterol 60 PUFF AER INH SCH ×2 (06:20→20:07)
[2017-07-20] MEDS ORDERED: predniSONE 20 MG TAB PO SCH (08:00)
[2017-07-20] MEDS: Aspirin 81 mg Enteric Coated Tablet PO SCH (08:40)
[2017-07-20] MEDS: Docusate 100 MG CAP PO SCH ×2 (08:40→19:57)
[2017-07-20] MEDS: guaiFENesin ER 600 MG TAB PO SCH ×2 (08:40→19:58)
[2017-07-20] MEDS: Lisinopril 10 MG TAB PO SCH (08:41)
[2017-07-20] MEDS: clonazePAM 0.5 MG TAB PO SCH ×2 (08:41→19:57)
[2017-07-20] MEDS: DULoxetine 30 MG CAP PO SCH ×2 (08:41→19:56)
[2017-07-20] MEDS: Famotidine 20 MG TAB PO SCH (08:41)
[2017-07-20] MEDS: Floranex Packet PO SCH (08:43)
[2017-07-20] MEDS: predniSONE 20 MG TAB PO SCH (08:46)
[2017-07-20] MEDS: traMADol HCl 50 MG TAB PO PRN ×2 (08:53→13:43)
[2017-07-20] MEDS: Azithromycin 500 MG in Sodium Chloride 0.9% 250 ML 250 ML IVPB SCH (13:31)
[2017-07-20] MEDS: HumaLOG 300 UNITS/3 ML VIAL SC PRN (17:25)
[2017-07-20] MEDS: CeleCOXIB 100 MG CAP PO SCH (19:57)
[2017-07-20] MEDS: Atorvastatin Calcium 10 MG TAB PO SCH ×2 (19:58→19:59)
[2017-07-20] MEDS: Enoxaparin Sodium 40 MG/0.4 ML SYRINGE SC SCH (19:59)
[2017-07-20] MEDS: Montelukast Sodium 10 mg Tablet PO SCH (20:11)
[2017-07-21] MEDS: Mometasone/Formoterol 60 PUFF AER INH SCH ×2 (05:54→18:01)
[2017-07-21 06:03] LABS: #Basophils 0.2 thou/uL (0.0-0.2); #Eosinphils 0.1 thou/uL (0.0-0.7); #Monocytes 1.3 thou/uL (0.11-0.59); #Neutrophils 9.7 thou/uL (1.40-6.50); %Basophils 1.5 % (0.0-1.0); %Eosinophils 0.6 % (0.0-10.0); %Lymphocytes 25.9 % (21.0-51.0); %Monocytes 8.5 % (0.0-10.0); %Neutrophils 63.4 % (42.0-75.0); Hemoglobin 14.1 g/dL (12.0-16.0); Mean Corpuscular HGB CONC 30.9 g/dL (32.0-36.0); Mean Corpuscular Hemoglobin 29.1 pg (27.0-31.0); Mean Corpuscular Volume 94.1 fl (81.0-99.0); Mean Platelet Volume 7.4 fL (7.4-10.4); Platelet Count 208 thou/uL (130-400); RBC Distribution Width 13.8 % (11.5-14.5); Red Blood Cell (RBC) Count 4.83 mill/uL (4.20-5.40); White Blood Cell (WBC) Count 15.3 thou/uL (4.8-10.8)
[2017-07-21 06:11] LABS: ALT (SGPT) 21 U/L (8-55); AST (SGOT) 20 U/L (5-34); Alkaline Phosphatase 57 U/L (40-150); Anion Gap 16 mmol/L (10-20); BUN (Urea Nitrogen) 31 mg/dL (9.8-20.1); Bilirubin, Total 0.4 mg/dL (0.2-1.2); Calc. Creatinine Clearance 75 mL/min (70-130); Carbon Dioxide 26 mmol/L (23-31); Chloride 102 mmol/L (98-107); Estimated GFR-MDRD 38; Globulin 2.8 g/dL (2.4-3.5); Glucose 114 mg/dL (80-115); Potassium 4.1 mmol/L (3.5-5.1); Protein, Total 6.8 g/dL (6.0-8.3); Sodium 140 mmol/L (136-145)
[2017-07-21] MEDS: predniSONE 20 MG TAB PO SCH (09:38)
[2017-07-21] MEDS: clonazePAM 0.5 MG TAB PO SCH ×2 (09:39→21:05)
[2017-07-21] MEDS: Aspirin 81 mg Enteric Coated Tablet PO SCH (09:39)
[2017-07-21] MEDS: Docusate 100 MG CAP PO SCH ×2 (09:40→21:03)
[2017-07-21] MEDS: Floranex Packet PO SCH (09:41)
[2017-07-21] MEDS: DULoxetine 30 MG CAP PO SCH ×2 (09:41→21:03)
[2017-07-21] MEDS: Famotidine 20 MG TAB PO SCH (09:42)
[2017-07-21] MEDS: Lisinopril 10 MG TAB PO SCH (09:42)
[2017-07-21] MEDS: guaiFENesin ER 600 MG TAB PO SCH ×2 (09:42→21:03)
[2017-07-21] MEDS: traMADol HCl 50 MG TAB PO PRN ×2 (10:09→17:56)
[2017-07-21] MEDS: Lorazepam 0.5 MG TAB PO PRN (10:09)
[2017-07-21] MEDS: Sodium Chloride 0.9% 1,000 ML IV SCH (10:15)
[2017-07-21] MEDS: Azithromycin 500 MG in Sodium Chloride 0.9% 250 ML 250 ML IVPB SCH (14:26)
[2017-07-21] MEDS: HumaLOG 300 UNITS/3 ML VIAL SC PRN (17:57)
[2017-07-21] MEDS: CeleCOXIB 100 MG CAP PO SCH (21:02)
[2017-07-21] MEDS: Montelukast Sodium 10 mg Tablet PO SCH (21:04)
[2017-07-21] MEDS: Enoxaparin Sodium 40 MG/0.4 ML SYRINGE SC SCH (21:05)
[2017-07-21] MEDS: Atorvastatin Calcium 10 MG TAB PO SCH ×2 (21:10→21:13)
[2017-07-22 05:59] LABS: #Basophils 0.1 thou/uL (0.0-0.2); #Eosinphils 0.1 thou/uL (0.0-0.7); #Lymphocytes 2.9 thou/uL (1.20-3.40); #Monocytes 1.1 thou/uL (0.11-0.59); #Neutrophils 9.8 thou/uL (1.40-6.50); %Basophils 0.5 % (0.0-1.0); %Eosinophils 0.8 % (0.0-10.0); %Lymphocytes 20.8 % (21.0-51.0); %Monocytes 7.9 % (0.0-10.0); Hemoglobin 13.2 g/dL (12.0-16.0); Mean Corpuscular HGB CONC 33.2 g/dL (32.0-36.0); Mean Corpuscular Hemoglobin 30.7 pg (27.0-31.0); Mean Corpuscular Volume 92.4 fl (81.0-99.0); Mean Platelet Volume 8.2 fL (7.4-10.4); Platelet Count 202 thou/uL (130-400); RBC Distribution Width 13.6 % (11.5-14.5)
[2017-07-22] MEDS: Sodium Chloride 0.9% 1,000 ML IV SCH (06:02)
[2017-07-22] MEDS: Mometasone/Formoterol 60 PUFF AER INH SCH ×2 (06:04→18:06)
[2017-07-22 06:11] LABS: ALT (SGPT) 18 U/L (8-55); AST (SGOT) 16 U/L (5-34); Albumin 3.5 g/dL (3.4-4.8); Alkaline Phosphatase 50 U/L (40-150); Anion Gap 13 mmol/L (10-20); BUN (Urea Nitrogen) 22 mg/dL (9.8-20.1); Bilirubin, Total 0.5 mg/dL (0.2-1.2); Calc. Creatinine Clearance 89 mL/min (70-130); Calcium 8.6 mg/dL (7.8-10.44); Carbon Dioxide 30 mmol/L (23-31); Chloride 104 mmol/L (98-107); Estimated GFR-MDRD 47; Globulin 2.4 g/dL (2.4-3.5); Glucose 88 mg/dL (80-115); Potassium 4.1 mmol/L (3.5-5.1); Protein, Total 5.9 g/dL (6.0-8.3); Sodium 143 mmol/L (136-145)
[2017-07-22] MEDS: guaiFENesin ER 600 MG TAB PO SCH ×2 (08:33→21:08)
[2017-07-22] MEDS: Lisinopril 10 MG TAB PO SCH (08:34)
[2017-07-22] MEDS: Famotidine 20 MG TAB PO SCH (08:34)
[2017-07-22] MEDS: Docusate 100 MG CAP PO SCH ×2 (08:35→21:09)
[2017-07-22] MEDS: predniSONE 20 MG TAB PO SCH (08:35)
[2017-07-22] MEDS: Floranex Packet PO SCH (08:35)
[2017-07-22] MEDS: clonazePAM 0.5 MG TAB PO SCH ×2 (08:35→21:08)
[2017-07-22] MEDS: Aspirin 81 mg Enteric Coated Tablet PO SCH (08:35)
[2017-07-22] MEDS: DULoxetine 30 MG CAP PO SCH ×2 (08:35→21:08)
[2017-07-22] MEDS: Lorazepam 0.5 MG TAB PO PRN ×2 (08:47→21:11)
[2017-07-22] MEDS: traMADol HCl 50 MG TAB PO PRN ×2 (13:08→21:11)
[2017-07-22] MEDS: Azithromycin 500 MG in Sodium Chloride 0.9% 250 ML 250 ML IVPB SCH (13:09)
[2017-07-22] MEDS: HumaLOG 300 UNITS/3 ML VIAL SC PRN (17:52)
[2017-07-22] MEDS: Atorvastatin Calcium 10 MG TAB PO SCH (21:00)
[2017-07-22] MEDS: Enoxaparin Sodium 40 MG/0.4 ML SYRINGE SC SCH (21:06)
[2017-07-22] MEDS: CeleCOXIB 100 MG CAP PO SCH (21:06)
[2017-07-22] MEDS: Montelukast Sodium 10 mg Tablet PO SCH (21:08)
[2017-07-23] MEDS: Mometasone/Formoterol 60 PUFF AER INH SCH ×2 (06:13→17:54)
[2017-07-23] MEDS: Docusate 100 MG CAP PO SCH ×2 (08:36→20:48)
[2017-07-23] MEDS: Lisinopril 10 MG TAB PO SCH (08:36)
[2017-07-23] MEDS: Lorazepam 0.5 MG TAB PO PRN ×2 (08:37→21:03)
[2017-07-23] MEDS: clonazePAM 0.5 MG TAB PO SCH ×2 (08:37→20:48)
[2017-07-23] MEDS: DULoxetine 30 MG CAP PO SCH ×2 (08:37→20:48)
[2017-07-23] MEDS: Floranex Packet PO SCH (08:38)
[2017-07-23] MEDS: predniSONE 20 MG TAB PO SCH (08:38)
[2017-07-23] MEDS: guaiFENesin ER 600 MG TAB PO SCH ×2 (08:39→20:48)
[2017-07-23] MEDS: Famotidine 20 MG TAB PO SCH (08:44)
[2017-07-23] MEDS: Aspirin 81 mg Enteric Coated Tablet PO SCH (08:46)
[2017-07-23] MEDS: Azithromycin 500 MG in Sodium Chloride 0.9% 250 ML 250 ML IVPB SCH (13:06)
[2017-07-23] MEDS: traMADol HCl 50 MG TAB PO PRN ×2 (13:16→20:49)
[2017-07-23] MEDS ORDERED: Furosemide 40 MG/4 ML VIAL SLOW IVP SCH (18:30)
[2017-07-23] MEDS: Enoxaparin Sodium 40 MG/0.4 ML SYRINGE SC SCH (20:47)
[2017-07-23] MEDS: Atorvastatin Calcium 10 MG TAB PO SCH (20:47)
[2017-07-23] MEDS: CeleCOXIB 100 MG CAP PO SCH (20:47)
[2017-07-23] MEDS: Montelukast Sodium 10 mg Tablet PO SCH (20:48)
[2017-07-24 05:19] LABS: ALT (SGPT) 19 U/L (8-55); AST (SGOT) 14 U/L (5-34); Albumin 3.6 g/dL (3.4-4.8); Alkaline Phosphatase 48 U/L (40-150); Anion Gap 15 mmol/L (10-20); BUN (Urea Nitrogen) 22 mg/dL (9.8-20.1); Bilirubin, Total 0.6 mg/dL (0.2-1.2); Calc. Creatinine Clearance 88 mL/min (70-130); Calcium 9.3 mg/dL (7.8-10.44); Carbon Dioxide 34 mmol/L (23-31); Chloride 97 mmol/L (98-107); Estimated GFR-MDRD 46; Globulin 2.3 g/dL (2.4-3.5); Glucose 110 mg/dL (80-115); Potassium 3.8 mmol/L (3.5-5.1); Protein, Total 5.9 g/dL (6.0-8.3); Sodium 142 mmol/L (136-145)
[2017-07-24 05:27] LABS: #Basophils 0.2 thou/uL (0.0-0.2); #Eosinphils 0.2 thou/uL (0.0-0.7); #Lymphocytes 4.8 thou/uL (1.20-3.40); #Monocytes 1.3 thou/uL (0.11-0.59); #Neutrophils 11.3 thou/uL (1.40-6.50); %Eosinophils 0.9 % (0.0-10.0); %Lymphocytes 27.1 % (21.0-51.0); %Monocytes 7.2 % (0.0-10.0); %Neutrophils 63.8 % (42.0-75.0); Hemoglobin 13.9 g/dL (12.0-16.0); Mean Corpuscular HGB CONC 32.9 g/dL (32.0-36.0); Mean Corpuscular Hemoglobin 30.7 pg (27.0-31.0); Mean Corpuscular Volume 93.2 fl (81.0-99.0); Mean Platelet Volume 7.6 fL (7.4-10.4); Platelet Count 207 thou/uL (130-400); RBC Distribution Width 13.5 % (11.5-14.5); Red Blood Cell (RBC) Count 4.52 mill/uL (4.20-5.40); White Blood Cell (WBC) Count 17.7 thou/uL (4.8-10.8)
[2017-07-24] MEDS: Lorazepam 0.5 MG TAB PO PRN ×2 (06:16→20:29)
[2017-07-24] MEDS: Mometasone/Formoterol 60 PUFF AER INH SCH ×2 (06:20→18:24)
--- NOTE | 2017-07-24 07:13 | RAD ---
CHEST 2 VIEWS: Date: 07/24/17 Comparison made with prior study dated 07/16/17. FINDINGS: Mild cardiomegaly is no different than before. The vessels are not currently congested to diagnose CH F. No lobar infiltrate or effusion seen. The haziness in the right cardiophrenic angle has been shown recently on CT to be a fat pad. The trachea is midline. IMPRESSION: Mild cardiomegaly with no evidence of congestive change at this time. POS: HOME
[2017-07-24] MEDS: DULoxetine 30 MG CAP PO SCH ×2 (08:16→20:28)
[2017-07-24] MEDS: predniSONE 20 MG TAB PO SCH (08:16)
[2017-07-24] MEDS: Docusate 100 MG CAP PO SCH ×2 (08:16→20:27)
[2017-07-24] MEDS: Lisinopril 10 MG TAB PO SCH (08:17)
[2017-07-24] MEDS: Aspirin 81 mg Enteric Coated Tablet PO SCH (08:17)
[2017-07-24] MEDS: guaiFENesin ER 600 MG TAB PO SCH ×2 (08:17→20:27)
[2017-07-24] MEDS: Floranex Packet PO SCH (08:17)
[2017-07-24] MEDS: clonazePAM 0.5 MG TAB PO SCH ×2 (08:17→20:27)
[2017-07-24] MEDS: Famotidine 20 MG TAB PO SCH (08:17)
[2017-07-24] MEDS: traMADol HCl 50 MG TAB PO PRN ×2 (08:22→20:29)
[2017-07-24] MEDS ORDERED: predniSONE 20 MG TAB PO SCH (08:45)
[2017-07-24] MEDS ORDERED: Furosemide 20 MG/2 ML VIAL SLOW IVP SCH (08:45)
[2017-07-24 10:16] LABS: Bilirubin Negative (Negative); Blood, Urine Trace (Negative); Clarity Slightly Cloudy (Clear); Glucose, Urine (Dipstick) Negative (Negative); Leukocyte Large (Negative); Nitrite Negative (Negative); Protein, Urine (Dipstick) Negative (Neg-Trace); Urobilinogen 0.2 mg/dL (0.2-1.0)
[2017-07-24 10:53] LABS: Bacteria/HPF 3+ HPF (None Seen); RBC/HPF 0-3 HPF (0-3); Squamous Epithelial 0-3 HPF (0-3)
[2017-07-24] MEDS ORDERED: Nystatin 500,000 UNITS/5 ML UDCUP ONE (16:52)
[2017-07-24] MEDS: HumaLOG 300 UNITS/3 ML VIAL SC PRN (17:55)
[2017-07-24] MEDS: Enoxaparin Sodium 40 MG/0.4 ML SYRINGE SC SCH (20:25)
[2017-07-24] MEDS: Montelukast Sodium 10 mg Tablet PO SCH (20:26)
[2017-07-24] MEDS: Atorvastatin Calcium 10 MG TAB PO SCH (20:26)
[2017-07-24] MEDS: CeleCOXIB 100 MG CAP PO SCH (20:27)
[2017-07-25] MEDS: Mometasone/Formoterol 60 PUFF AER INH SCH ×2 (05:58→18:57)
[2017-07-25] MEDS: Floranex Packet PO SCH (08:03)
[2017-07-25] MEDS: Lisinopril 10 MG TAB PO SCH (08:03)
[2017-07-25] MEDS: predniSONE 20 MG TAB PO SCH (08:04)
[2017-07-25] MEDS: Furosemide 40 MG TAB PO SCH (08:04)
[2017-07-25] MEDS: clonazePAM 0.5 MG TAB PO SCH ×2 (08:04→20:55)
[2017-07-25] MEDS: Docusate 100 MG CAP PO SCH ×2 (08:04→20:54)
[2017-07-25] MEDS: Famotidine 20 MG TAB PO SCH (08:04)
[2017-07-25] MEDS: Aspirin 81 mg Enteric Coated Tablet PO SCH (08:04)
[2017-07-25] MEDS: DULoxetine 30 MG CAP PO SCH ×2 (08:05→20:54)
[2017-07-25] MEDS: guaiFENesin ER 600 MG TAB PO SCH ×2 (08:05→20:55)
[2017-07-25] MEDS: Lorazepam 0.5 MG TAB PO PRN ×2 (08:11→20:57)
[2017-07-25] MEDS: traMADol HCl 50 MG TAB PO PRN ×2 (08:11→20:57)
[2017-07-25] MEDS ORDERED: Sulfameth/Trimethoprim DS 800-160mg TAB PO SCH (10:30)
[2017-07-25] MEDS: Albuterol Sulfate 2.5 mg/3 ml Neb NEB PRN (16:46)
[2017-07-25] MEDS: Sulfameth/Trimethoprim DS 800-160mg TAB PO SCH (20:56)
[2017-07-25] MEDS: Atorvastatin Calcium 10 MG TAB PO SCH (20:56)
[2017-07-25] MEDS: CeleCOXIB 100 MG CAP PO SCH (20:56)
[2017-07-25] MEDS: Montelukast Sodium 10 mg Tablet PO SCH (20:57)
[2017-07-25] MEDS: Enoxaparin Sodium 40 MG/0.4 ML SYRINGE SC SCH (20:59)
[2017-07-26 06:04] LABS: Anion Gap 15 mmol/L (10-20); BUN (Urea Nitrogen) 27 mg/dL (9.8-20.1); Calc. Creatinine Clearance 82 mL/min (70-130); Calcium 9.4 mg/dL (7.8-10.44); Carbon Dioxide 32 mmol/L (23-31); Chloride 99 mmol/L (98-107); Estimated GFR-MDRD 42; Glucose 81 mg/dL (80-115); Sodium 142 mmol/L (136-145)
[2017-07-26] MEDS: Mometasone/Formoterol 60 PUFF AER INH SCH ×2 (06:08→18:39)
[2017-07-26 07:29] LABS: Hemoglobin 13.6 g/dL (12.0-16.0); Mean Corpuscular HGB CONC 32.4 g/dL (32.0-36.0); Mean Corpuscular Hemoglobin 30.2 pg (27.0-31.0); Mean Corpuscular Volume 93.3 fl (81.0-99.0); Mean Platelet Volume 7.5 fL (7.4-10.4); Platelet Count 203 thou/uL (130-400); RBC Distribution Width 13.7 % (11.5-14.5); Red Blood Cell (RBC) Count 4.51 mill/uL (4.20-5.40); White Blood Cell (WBC) Count 19.1 thou/uL (4.8-10.8)
[2017-07-26 07:49] LABS: #Basophils 0.1 thou/uL (0.0-0.2); #Eosinphils 0.1 thou/uL (0.0-0.7); #Lymphocytes 3.9 thou/uL (1.20-3.40); #Monocytes 1.8 thou/uL (0.11-0.59); #Neutrophils 13.3 thou/uL (1.40-6.50); %Basophils 0.5 % (0.0-1.0); %Eosinophils 0.3 % (0.0-10.0); %Lymphocytes 20.5 % (21.0-51.0); %Monocytes 9.2 % (0.0-10.0); %Neutrophils 69.5 % (42.0-75.0); Lymphocytes 26 % (21-51); MDiff Complete? YES; Monocytes 4 % (0-10); Neutrophil 70 % (42-75); PLT Morphology Comment Appears Adequate; RBC Morphology Normal
[2017-07-26] MEDS: Lisinopril 10 MG TAB PO SCH (08:42)
[2017-07-26] MEDS: clonazePAM 0.5 MG TAB PO SCH ×2 (08:42→20:45)
[2017-07-26] MEDS: guaiFENesin ER 600 MG TAB PO SCH ×2 (08:44→20:44)
[2017-07-26] MEDS: Famotidine 20 MG TAB PO SCH (08:44)
[2017-07-26] MEDS: predniSONE 20 MG TAB PO SCH (08:44)
[2017-07-26] MEDS: DULoxetine 30 MG CAP PO SCH ×2 (08:45→20:44)
[2017-07-26] MEDS: Floranex Packet PO SCH (08:45)
[2017-07-26] MEDS: Docusate 100 MG CAP PO SCH ×2 (08:46→20:44)
[2017-07-26] MEDS: Sulfameth/Trimethoprim DS 800-160mg TAB PO SCH ×2 (08:46→20:44)
[2017-07-26] MEDS: Aspirin 81 mg Enteric Coated Tablet PO SCH (08:46)
[2017-07-26] MEDS: Furosemide 40 MG TAB PO SCH (08:46)
[2017-07-26] MEDS: traMADol HCl 50 MG TAB PO PRN ×2 (08:52→20:45)
[2017-07-26] MEDS: Lorazepam 0.5 MG TAB PO PRN ×2 (08:56→20:45)
[2017-07-26] MEDS: HumaLOG 300 UNITS/3 ML VIAL SC PRN (13:12)
[2017-07-26] MEDS: Atorvastatin Calcium 10 MG TAB PO SCH (20:43)
[2017-07-26] MEDS: CeleCOXIB 100 MG CAP PO SCH (20:44)
[2017-07-26] MEDS: Montelukast Sodium 10 mg Tablet PO SCH (20:45)
[2017-07-26] MEDS: Enoxaparin Sodium 40 MG/0.4 ML SYRINGE SC SCH (20:45)
[2017-07-27] MEDS: Mometasone/Formoterol 60 PUFF AER INH SCH ×2 (06:18→18:15)
[2017-07-27] MEDS: Lorazepam 0.5 MG TAB PO PRN ×2 (06:33→18:38)
[2017-07-27] MEDS: traMADol HCl 50 MG TAB PO PRN ×2 (06:33→18:37)
[2017-07-27 06:49] LABS: #Basophils 0.2 thou/uL (0.0-0.2); #Eosinphils 0.1 thou/uL (0.0-0.7); #Lymphocytes 4.1 thou/uL (1.20-3.40); #Monocytes 1.5 thou/uL (0.11-0.59); #Neutrophils 13.2 thou/uL (1.40-6.50); %Eosinophils 0.3 % (0.0-10.0); %Lymphocytes 21.5 % (21.0-51.0); %Monocytes 7.8 % (0.0-10.0); %Neutrophils 69.4 % (42.0-75.0); Hemoglobin 13.8 g/dL (12.0-16.0); Mean Corpuscular HGB CONC 32.9 g/dL (32.0-36.0); Mean Corpuscular Hemoglobin 30.2 pg (27.0-31.0); Mean Corpuscular Volume 91.6 fl (81.0-99.0); Mean Platelet Volume 7.5 fL (7.4-10.4); Platelet Count 210 thou/uL (130-400); RBC Distribution Width 13.9 % (11.5-14.5); Red Blood Cell (RBC) Count 4.59 mill/uL (4.20-5.40)
[2017-07-27] MEDS: Lisinopril 10 MG TAB PO SCH (08:50)
[2017-07-27] MEDS: guaiFENesin ER 600 MG TAB PO SCH ×2 (08:53→21:18)
[2017-07-27] MEDS: Floranex Packet PO SCH (08:54)
[2017-07-27] MEDS: Furosemide 40 MG TAB PO SCH (08:54)
[2017-07-27] MEDS: Famotidine 20 MG TAB PO SCH (08:54)
[2017-07-27] MEDS: Docusate 100 MG CAP PO SCH ×2 (08:54→21:21)
[2017-07-27] MEDS: clonazePAM 0.5 MG TAB PO SCH ×2 (08:54→21:21)
[2017-07-27] MEDS: Sulfameth/Trimethoprim DS 800-160mg TAB PO SCH (08:54)
[2017-07-27] MEDS: predniSONE 20 MG TAB PO SCH (08:54)
[2017-07-27] MEDS: DULoxetine 30 MG CAP PO SCH ×2 (08:54→21:19)
[2017-07-27] MEDS: Aspirin 81 mg Enteric Coated Tablet PO SCH (08:54)
[2017-07-27] MEDS: HumaLOG 300 UNITS/3 ML VIAL SC PRN ×2 (13:05→18:14)
[2017-07-27] MEDS: Atorvastatin Calcium 10 MG TAB PO SCH (21:15)
[2017-07-27] MEDS: Nitrofurantoin Monohyd/M-Cryst 100 MG CAP PO SCH (21:20)
[2017-07-27] MEDS: CeleCOXIB 100 MG CAP PO SCH (21:20)
[2017-07-27] MEDS: Montelukast Sodium 10 mg Tablet PO SCH (21:20)
[2017-07-27] MEDS: Enoxaparin Sodium 40 MG/0.4 ML SYRINGE SC SCH (21:21)
[2017-07-28] MEDS: Albuterol Sulfate 2.5 mg/3 ml Neb NEB PRN (04:58)
[2017-07-28] MEDS: Mometasone/Formoterol 60 PUFF AER INH SCH ×2 (06:13→18:26)
[2017-07-28] MEDS: Floranex Packet PO SCH (09:48)
[2017-07-28] MEDS: Docusate 100 MG CAP PO SCH ×2 (09:49→20:51)
[2017-07-28] MEDS: predniSONE 20 MG TAB PO SCH (09:49)
[2017-07-28] MEDS: traMADol HCl 50 MG TAB PO PRN ×2 (09:49→18:01)
[2017-07-28] MEDS: guaiFENesin ER 600 MG TAB PO SCH ×2 (09:50→20:52)
[2017-07-28] MEDS: Lorazepam 0.5 MG TAB PO PRN ×2 (09:50→18:01)
[2017-07-28] MEDS: DULoxetine 30 MG CAP PO SCH ×2 (09:50→20:51)
[2017-07-28] MEDS: Aspirin 81 mg Enteric Coated Tablet PO SCH (09:50)
[2017-07-28] MEDS: clonazePAM 0.5 MG TAB PO SCH ×2 (09:51→20:52)
[2017-07-28] MEDS: Furosemide 40 MG TAB PO SCH (09:51)
[2017-07-28] MEDS: Lisinopril 10 MG TAB PO SCH (09:52)
[2017-07-28] MEDS: Nitrofurantoin Monohyd/M-Cryst 100 MG CAP PO SCH ×2 (09:56→20:52)
[2017-07-28] MEDS ORDERED: Famotidine 20 MG TAB PO SCH (10:15)
[2017-07-28] MEDS: Famotidine 20 MG TAB PO SCH (10:25)
[2017-07-28] MEDS: HumaLOG 300 UNITS/3 ML VIAL SC PRN (18:02)
[2017-07-28] MEDS: CeleCOXIB 100 MG CAP PO SCH (20:50)
[2017-07-28] MEDS: Enoxaparin Sodium 40 MG/0.4 ML SYRINGE SC SCH (20:50)
[2017-07-28] MEDS: Montelukast Sodium 10 mg Tablet PO SCH (20:52)
[2017-07-28] MEDS: Atorvastatin Calcium 10 MG TAB PO SCH (20:55)
[2017-07-28] MEDS ORDERED: Atorvastatin Calcium 40 MG TAB PO SCH (23:00)
[2017-07-29] MEDS: traMADol HCl 50 MG TAB PO PRN (01:21)
[2017-07-29] MEDS: Lorazepam 0.5 MG TAB PO PRN (01:23)
[2017-07-29] MEDS: Mometasone/Formoterol 60 PUFF AER INH SCH (06:34)
[2017-07-29] MEDS: Furosemide 40 MG TAB PO SCH (06:38)
[2017-07-29 07:10] VITALS: BP 140/90; TEMP 98.1
[2017-07-29] MEDS: DULoxetine 30 MG CAP PO SCH (09:37)
[2017-07-29] MEDS: guaiFENesin ER 600 MG TAB PO SCH (09:37)
[2017-07-29] MEDS: clonazePAM 0.5 MG TAB PO SCH (09:37)
[2017-07-29] MEDS: Nitrofurantoin Monohyd/M-Cryst 100 MG CAP PO SCH (09:37)
[2017-07-29] MEDS: Lisinopril 10 MG TAB PO SCH (09:37)
[2017-07-29] MEDS: Famotidine 20 MG TAB PO SCH (09:38)
[2017-07-29] MEDS: Floranex Packet PO SCH (09:39)
[2017-07-29] MEDS: Aspirin 81 mg Enteric Coated Tablet PO SCH (09:39)
[2017-07-29] MEDS: Docusate 100 MG CAP PO SCH (09:39)
[2017-07-29] MEDS: predniSONE 20 MG TAB PO SCH (09:39)
== END 2017-07-29 12:10 | disposition home health service (06) | DRG 191 ==
LOC: BURMED 10:10
PROVIDERS: ADMIT Family Medicine; ATTEND Family Medicine
DX: J44.1 Chronic obstructive pulmonary disease with (acute) exacerbation (principal); N39.0 Urinary tract infection, site not specified; E11.22 Type 2 diabetes mellitus with diabetic chronic kidney disease; E11.40 Type 2 diabetes mellitus with diabetic neuropathy, unspecified; Z99.81 Dependence on supplemental oxygen; B96.20 Unspecified Escherichia coli [E. coli] as the cause of diseases classified elsewhere; R60.0 Localized edema; I25.10 Atherosclerotic heart disease of native coronary artery without angina pectoris; F19.11 Other psychoactive substance abuse, in remission; I12.9 Hypertensive chronic kidney disease with stage 1 through stage 4 chronic kidney disease, or unspecified chronic kidney disease; N18.3 Chronic kidney disease, stage 3 (moderate); Z98.51 Tubal ligation status; Z90.49 Acquired absence of other specified parts of digestive tract; F17.210 Nicotine dependence, cigarettes, uncomplicated; F41.8 Other specified anxiety disorders; E78.5 Hyperlipidemia, unspecified
CPT/HCPCS: 36415; 36416; 71046; 80048; 80053; 81001; 83880; 85025; 87077; 87086; 87186; 94640; 94664; A4216; G8978-GP-CL; G8979-GP-CK; G8987-GO-CL; G8988-GO-CJ; J0456; J1650; J1940; J2930; J7050; J7506; J7611; J7620; Q0162

== ENCOUNTER 2017-11-20 14:52 | Emergency (ER) | payer MEDICARE ==
[2017-11-20 15:27] LABS: #Basophils 0.1 thou/uL (0.0-0.2); #Eosinphils 0.2 thou/uL (0.0-0.7); #Lymphocytes 2.4 thou/uL (1.20-3.40); #Monocytes 0.9 thou/uL (0.11-0.59); #Neutrophils 7.4 thou/uL (1.40-6.50); %Basophils 0.8 % (0.0-1.0); %Eosinophils 1.6 % (0.0-10.0); %Lymphocytes 22.2 % (21.0-51.0); %Monocytes 8.3 % (0.0-10.0); %Neutrophils 67.1 % (42.0-75.0); Hemoglobin 12.5 g/dL (12.0-16.0); Mean Corpuscular HGB CONC 33.7 g/dL (32.0-36.0); Mean Corpuscular Hemoglobin 31.1 pg (27.0-31.0); Mean Corpuscular Volume 92.5 fl (81.0-99.0); Mean Platelet Volume 7.5 fL (7.4-10.4); Platelet Count 245 thou/uL (130-400); RBC Distribution Width 11.7 % (11.5-14.5); Red Blood Cell (RBC) Count 4.02 mill/uL (4.20-5.40)
[2017-11-20 15:28] LABS: pH (venous) 7.37 (7.35-7.45)
[2017-11-20 15:29] LABS: Base Excess 1.6 mEq/L (-2 - +2); Hemoglobin (Hb) 13.4 g/dL (11.7-16.1)
[2017-11-20 15:44] LABS: PTT 30.8 SEC (22.9-36.1); Prothrombin Time 13.2 SEC (12.0-14.7)
[2017-11-20] MEDS ORDERED: Azithromycin 500 MG VIAL ONE (15:46)
[2017-11-20] MEDS ORDERED: methylPREDNISolone Sod Succ/PF 125 MG/2 ML VIAL ONE (15:48)
[2017-11-20 15:51] LABS: ALT (SGPT) 13 U/L (8-55); AST (SGOT) 15 U/L (5-34); Albumin 3.8 g/dL (3.4-4.8); Alkaline Phosphatase 56 U/L (40-150); Anion Gap 15 mmol/L (10-20); BUN (Urea Nitrogen) 22 mg/dL (9.8-20.1); Bilirubin, Total 0.4 mg/dL (0.2-1.2); Calc. Creatinine Clearance 0 mL/min (70-130); Calcium 9.9 mg/dL (7.8-10.44); Carbon Dioxide 26 mmol/L (23-31); Chloride 104 mmol/L (98-107); Estimated GFR-MDRD 48; Glucose 134 mg/dL (80-115); Potassium 3.4 mmol/L (3.5-5.1); Protein, Total 6.8 g/dL (6.0-8.3); Sodium 142 mmol/L (136-145)
[2017-11-20 15:52] LABS: D-Dimer Test 1.17 *mcg/mL (0.27-0.43)
[2017-11-20 15:53] LABS: CKMB 2.1 ng/mL (0-6.6); Troponin I Less than 0.010 ng/mL (< 0.028)
--- NOTE | 2017-11-20 21:21 | RAD ---
CHEST TWO VIEWS 11/20/17 Comparison is made with the 07/24/17 study. The heart is mildly enlarged but there is no congestive change or large pleural effusion. The lungs a re mildly hyperexpanded. There is a focal area of increased density to the right of the heart near th e diaphragm and the right cardiophrenic angle. Looking at older films, my suspicion is that it is a f at pad, but another study, such as a CT would be needed to completely exclude an infiltrate here. The lungs are otherwise clear. The trachea is midline. IMPRESSION: 1. Mild cardiomegaly without congestive change. 2. Focal opacity in the right cardiophrenic angle near the diaphragm. Fat pad versus infiltrate. POS: HOME
== END 2017-11-20 16:13 | disposition short-term general hospital (02) ==
LOC: BURERS 14:52
DX: A41.9 Sepsis, unspecified organism (principal); J18.9 Pneumonia, unspecified organism; E11.9 Type 2 diabetes mellitus without complications; I10 Essential (primary) hypertension; J44.9 Chronic obstructive pulmonary disease, unspecified; F41.9 Anxiety disorder, unspecified; F32.9 Major depressive disorder, single episode, unspecified; Z87.891 Personal history of nicotine dependence; F17.210 Nicotine dependence, cigarettes, uncomplicated; Z79.899 Other long term (current) drug therapy; Z79.82 Long term (current) use of aspirin
CPT/HCPCS: 36415; 71046; 80053; 82553; 82805; 83605; 83880; 84484; 85025; 85379; 85610; 85730; 87040; 87149; 93005; 94640; 94760; 96374; 96375; J0456; J2930; J3370; J7620

== ENCOUNTER 2017-12-03 15:44 | Inpatient (IN) | payer MEDICARE ==
[2017-12-03] MEDS ORDERED: Dextrose 5% in Water 1,000 ML IV PRN (17:39)
[2017-12-03] MEDS ORDERED: Dextrose 50% Abboject 50 ML SYRINGE IVP PRN (17:39)
[2017-12-03] MEDS ORDERED: HumaLOG 300 UNITS/3 ML VIAL SC PRN ×2 (17:39)
[2017-12-03] MEDS ORDERED: Nitroglycerin 0.4 MG TAB (25 Tab Bottle) SL PRN (19:57)
[2017-12-03] MEDS ORDERED: METHYLPREDNISOLONE 4 MG PO SCH (20:00)
[2017-12-03] MEDS ORDERED: Albuterol Sulfate 1.25 MG/3 ML NEB NEB PRN (20:20)
[2017-12-03] MEDS ORDERED: CONFIRM ALL DAY 1 DOSES ARE TIMED FOR DAY 1 FS SCH (21:00)
[2017-12-03] MEDS ORDERED: methylPREDNISolone 4 mg Tablet PO SCH (21:00)
[2017-12-03] MEDS ORDERED: ALPRAZolam 0.5 MG TAB ONE (21:17)
[2017-12-03] MEDS: guaiFENesin ER 600 MG TAB PO SCH (21:27)
[2017-12-03] MEDS: Carvedilol 3.125 MG TAB PO SCH (21:27)
[2017-12-03] MEDS: Montelukast Sodium 10 mg Tablet PO SCH (21:28)
[2017-12-03] MEDS: Doxycycline Hyclate 100 MG TAB PO SCH (21:28)
[2017-12-03] MEDS: Atorvastatin Calcium 40 MG TAB PO SCH (21:28)
[2017-12-03] MEDS: Famotidine 20 MG TAB PO SCH (21:29)
[2017-12-03] MEDS: DULoxetine 30 MG CAP PO SCH (21:29)
[2017-12-03] MEDS: clonazePAM 0.5 MG TAB PO SCH (21:29)
[2017-12-03] MEDS: Mometasone/Formoterol 60 PUFF AER INH SCH (21:37)
[2017-12-04] MEDS ORDERED: Spiriva 18 MCG CAP (Box of 5 Caps) INH SCH (09:00)
[2017-12-04] MEDS ORDERED: Hydrochlorothiazide 25 MG TAB PO SCH (09:00)
[2017-12-04] MEDS: Carvedilol 3.125 MG TAB PO SCH ×2 (09:02→21:09)
[2017-12-04] MEDS: Lisinopril 10 MG TAB PO SCH (09:03)
[2017-12-04] MEDS: guaiFENesin ER 600 MG TAB PO SCH ×2 (09:03→21:05)
[2017-12-04] MEDS: Doxycycline Hyclate 100 MG TAB PO SCH ×2 (09:03→21:09)
[2017-12-04] MEDS: DULoxetine 30 MG CAP PO SCH ×2 (09:07→21:05)
[2017-12-04] MEDS: Famotidine 20 MG TAB PO SCH ×2 (09:07→21:09)
[2017-12-04] MEDS: Hydrochlorothiazide 25 MG TAB PO SCH (09:08)
[2017-12-04] MEDS: Loratadine 10 MG TAB PO SCH (09:08)
[2017-12-04] MEDS: Aspirin 81 mg Enteric Coated Tablet PO SCH (09:08)
[2017-12-04] MEDS: Floranex Packet PO SCH (09:08)
[2017-12-04] MEDS: Mometasone/Formoterol 60 PUFF AER INH SCH ×2 (09:09→21:09)
[2017-12-04] MEDS ORDERED: clonazePAM 1 MG TAB PO SCH (10:30)
[2017-12-04] MEDS: Ipratropium Bromide 2.5 ml Neb NEB SCH ×2 (12:14→17:50)
[2017-12-04] MEDS: methylPREDNISolone 4 mg Tablet PO SCH ×2 (13:34→16:15)
[2017-12-04] MEDS: clonazePAM 0.5 MG TAB PO SCH (13:34)
[2017-12-04] MEDS ORDERED: methylPREDNISolone 4 mg Tablet PO SCH ×2 (18:00→21:00)
[2017-12-04] MEDS: Atorvastatin Calcium 40 MG TAB PO SCH (21:06)
[2017-12-04] MEDS: clonazePAM 1 MG TAB PO SCH (21:07)
[2017-12-04] MEDS: Montelukast Sodium 10 mg Tablet PO SCH (21:08)
--- NOTE | 2017-12-05 00:20 | HP ---
CHIEF COMPLAINT: Rehabilitation status post cerebrovascular accident. HISTORY OF PRESENT ILLNESS: Ms. Kerr is a 67-year-old female seen this morning for initial skilled history and physical. Patient was admitted to [facility] from 11/20 through 11/23 for COPD exacerbation. She subsequently followed up in my office and family reported noticeable expressive aphasia described as difficulty finding words. Patient was recommended to be further evaluated at [facility], and presented to the emergency room on 11/29/2017. She was discharged yesterday. She had MRI of the brain, which showed findings consistent with left middle cerebral artery infarction and areas of old infarction in bilateral hemispheres. Echocardiogram showed preserved left ventricular ejection fraction of 50%-55% with diastolic dysfunction and [id number] aortic regurgitation. Carotid ultrasound was performed, which showed no evidence of hemodynamically significant stenosis of either internal carotid artery. Neurology was consulted and Dr. Vanessa saw the patient who felt that this was a subacute infarction. She was continued on low-dose aspirin and statin. She had a repeat MRI, which confirmed the previous findings. She was evaluated by occupational, physical, and speech therapy while in the hospital and is here to continue her therapy. She was noted to have some tachyarrhythmias while on cardiac monitoring and Cardiology was consulted. Both Dr. Castañeda and Dr. Mosher evaluated her and felt that LINQ recorder should be implanted. She had that placed yesterday. Regarding her COPD, the patient has not completed her previous regimen for COPD exacerbation and therefore was discharged on Medrol Dosepak and doxycycline. Since her admission, patient reports that she is feeling well. She still is having some trouble with finding her words. She has no focal neurologic weakness. She is not having any dysphagia. Her respiratory status is stable. In fact, she reports she actually has less dyspnea than her baseline at this point. She denies any new problems since her transfer. PAST MEDICAL HISTORY: 1. Acute on chronic hypoxemic respiratory failure. 2. Chronic obstructive pulmonary disease with chronic oxygen supplementation baseline to 3 liters per minute. 3. Type 2 diabetes. 4. Hypertension. 5. Diastolic congestive heart failure. 6. Severe coronary artery disease that has been deemed nonoperable. 7. Anxiety, depression. 8. History of DVT secondary to trauma. 9. Past history of polysubstance abuse, in remission for number of years. 10. Infrarenal abdominal aortic aneurysm. 11. Hyperlipidemia. 12. Chronic kidney disease, stage 3. 13. Left MCA CVA with Expressive Aphasia 14. Tachyarrythmia, unspecified, with recent implanted recorder PAST SURGICAL HISTORY: 1. Cardiac catheterization. 2. Bilateral tubal ligation. 3. Right breast lumpectomy. 4. Cholecystectomy. 5. Implanted LINQ recorder for tacchyarrhythmia monitoring ALLERGIES: LEVAQUIN, CEFACLOR, KETOROLAC, PENICILLIN. FAMILY HISTORY: Coronary artery disease, hypertension, and diabetes. SOCIAL HISTORY: Patient formerly used tobacco products, but none currently. Lives independently. She does have 2 daughters who are involved and support her. No current alcohol or illicit drug use. MEDICATIONS: Please see transfer MAR. REVIEW OF SYSTEMS: General: Denies fever, chills, myalgias, generalized weakness. HEENT: Denies vision changes, slurred speech. Positive expressive aphasia speech difficulty. Denies sore throat, rhinorrhea, ear pain. Cardiovascular: Denies chest pain, palpitations (tachyarrhythmia asymptomatic) , orthopnea, PND. Respiratory: Positive dyspnea, wheezing with history of COPD, O2 dependent, chronic cough. No hemoptysis. Gastrointestinal: Denies nausea, vomiting, diarrhea, abdominal pain. Genitourinary: Denies dysuria, urinary frequency, urinary incontinence, gross hematuria. Lymphatic: Has had some lower extremity edema in the past, but this is improved. Hematologic: Denies any bleeding or bruising. Neurologic: Denies any focal weakness. Positive generalized weakness, positive expressive aphasia, denies difficulty swallowing. No new numbness or paresthesias. PHYSICAL EXAMINATION: VITAL SIGNS: Temperature 98.3, heart rate 88, blood pressure 145/84, respirations 20, O2 saturation 97% on 3 liters. GENERAL: Well-developed, obese female in no acute distress, nasal cannula in place. Alert and oriented to person, time, town, but not to the name of the facility. She is able to name the current president. Follows commands well. HEENT: Normocephalic, atraumatic. Pupils equal, round, reactive to light and accommodation. Extraocular muscles intact. Nares are patent without discharge. Tongue protrudes in the midline. NECK: Supple without lymphadenopathy, thyromegaly, JVD or bruit. HEART: Regular rate and rhythm, normal S1, S2. No murmurs, clicks, rubs, or gallops. CHEST: Incision with dressing in place to medial left chest wall is c/d/i; minimal ecchymosis. LUNGS: Diminished air entry throughout, but no crackles or wheezes present. Slightly increased respiratory rate without accessory muscle use. Speaks in complete sentences. ABDOMEN: Positive bowel sounds in all four quadrants. Soft, nontender, nondistended. No masses, guarding, or rebound tenderness. EXTREMITIES: No cyanosis, clubbing, or edema. NEUROLOGICAL: Cranial nerves II-XII grossly intact without focal deficits. Expressive aphasia. No slurring of the speech. No sensory deficits. Gross motor 4+/5 to all four extremities. LABORATORY DATA: CBC from 12/02/2017 with white count 16.6, hemoglobin 13.6, hematocrit 41.6, platelets 249. On 11/29/2017, PT 14.3, INR 1.1, aPTT 25.6, D- dimer 0.65. Chemistry profile from 12/02/2017 with sodium 137, potassium 4.4, chloride 96, bicarbonate 34, BUN 22, creatinine 1.02, glucose 93, calcium 9.5. On 11/29/2017, LFTs were normal, lactic acid 1.5, cardiac enzymes negative, B- type natriuretic peptide 153.8. On 12/01/2017, total cholesterol 136, LDL 77, HDL 44, triglycerides 74. IMAGING: Patient with cardiac catheterization 12/03/2017 with successful placement of ILR. Please see report for details. Brain MRI on 12/01/2017 details as per HPI. Carotid Doppler 11/30/2017, details as per HPI. ASSESSMENT PLAN: 1. Acute left-middle cerebral artery infarction/cerebrovascular accident. Patient will be admitted for PT/OT/ST. We will continue her antiplatelet agent. Continue statin. 2. Tachyarrhythmia. Patient will follow up in the office with Dr. Castañeda in 1-2 weeks for reevaluation. We will provide local wound care to postoperative site. 3. Coronary artery disease. Again, we will continue the patient's aspirin, statin, carvedilol, and lisinopril. She has nitro ordered p.r.n. 4. Chronic respiratory failure with hypoxia. We will continue the patient's oxygen, antibiotics, and home maintenance regimen as well as completion of Medrol Dosepak. We will provide DuoNebs p.r.n. 5. Diabetes mellitus, type 2. We will place patient on hyperglycemia protocol algorithm with lispro. Diabetic diet. 6. Chronic obstructive pulmonary disease. Please see above. 7. Dyslipidemia. Again, we will continue statin. Recent lipid profile within goals. 8. Hypertension. We will monitor while hospitalized and continue current regimen and adjust accordingly. 9. Prophylaxis. Patient will be placed on Pepcid and SCDs. 10. Code status. Patient desires FULL CODE status. MTDD
[2017-12-05] MEDS: Ipratropium Bromide 2.5 ml Neb NEB SCH ×4 (01:02→17:21)
[2017-12-05] MEDS: Loratadine 10 MG TAB PO SCH (09:45)
[2017-12-05] MEDS: DULoxetine 30 MG CAP PO SCH ×2 (09:45→20:39)
[2017-12-05] MEDS: Famotidine 20 MG TAB PO SCH ×2 (09:45→20:40)
[2017-12-05] MEDS: Lisinopril 10 MG TAB PO SCH (09:46)
[2017-12-05] MEDS: Aspirin 81 mg Enteric Coated Tablet PO SCH (09:46)
[2017-12-05] MEDS: Carvedilol 3.125 MG TAB PO SCH ×2 (09:46→20:39)
[2017-12-05] MEDS: Doxycycline Hyclate 100 MG TAB PO SCH ×2 (09:47→20:40)
[2017-12-05] MEDS: guaiFENesin ER 600 MG TAB PO SCH ×2 (09:47→20:39)
[2017-12-05] MEDS: Floranex Packet PO SCH (09:47)
[2017-12-05] MEDS: Hydrochlorothiazide 25 MG TAB PO SCH (09:47)
[2017-12-05] MEDS: methylPREDNISolone 4 mg Tablet PO SCH ×4 (09:47→20:39)
[2017-12-05] MEDS: clonazePAM 1 MG TAB PO SCH ×2 (09:47→20:56)
[2017-12-05] MEDS: Mometasone/Formoterol 60 PUFF AER INH SCH ×2 (09:53→20:58)
[2017-12-05] MEDS: traMADol HCl 50 MG TAB PO PRN (09:54)
[2017-12-05] MEDS: Atorvastatin Calcium 40 MG TAB PO SCH (20:38)
[2017-12-05] MEDS: Montelukast Sodium 10 mg Tablet PO SCH (20:40)
[2017-12-06] MEDS: Ipratropium Bromide 2.5 ml Neb NEB SCH ×4 (00:36→16:32)
[2017-12-06] MEDS: Floranex Packet PO SCH (08:32)
[2017-12-06] MEDS: DULoxetine 30 MG CAP PO SCH ×2 (08:32→20:52)
[2017-12-06] MEDS: methylPREDNISolone 4 mg Tablet PO SCH ×3 (08:32→16:32)
[2017-12-06] MEDS: Aspirin 81 mg Enteric Coated Tablet PO SCH (08:32)
[2017-12-06] MEDS: clonazePAM 1 MG TAB PO SCH ×2 (08:33→20:53)
[2017-12-06] MEDS: Hydrochlorothiazide 25 MG TAB PO SCH (08:33)
[2017-12-06] MEDS: Loratadine 10 MG TAB PO SCH (08:33)
[2017-12-06] MEDS: Lisinopril 10 MG TAB PO SCH (08:33)
[2017-12-06] MEDS: guaiFENesin ER 600 MG TAB PO SCH ×2 (08:33→20:53)
[2017-12-06] MEDS: Doxycycline Hyclate 100 MG TAB PO SCH ×2 (08:34→20:51)
[2017-12-06] MEDS: Famotidine 20 MG TAB PO SCH ×2 (08:34→20:53)
[2017-12-06] MEDS: Carvedilol 3.125 MG TAB PO SCH ×2 (08:34→20:50)
[2017-12-06] MEDS: Mometasone/Formoterol 60 PUFF AER INH SCH ×2 (08:35→20:46)
[2017-12-06] MEDS: traMADol HCl 50 MG TAB PO PRN (13:59)
[2017-12-06] MEDS: Montelukast Sodium 10 mg Tablet PO SCH (20:52)
[2017-12-06] MEDS: Cyclobenzaprine 10 MG TAB PO PRN (21:31)
[2017-12-06] MEDS: Atorvastatin Calcium 40 MG TAB PO SCH (21:31)
[2017-12-07] MEDS: Ipratropium Bromide 2.5 ml Neb NEB SCH ×4 (00:40→17:20)
[2017-12-07] MEDS: methylPREDNISolone 4 mg Tablet PO SCH ×2 (08:52→17:20)
[2017-12-07] MEDS: DULoxetine 30 MG CAP PO SCH ×2 (08:53→20:20)
[2017-12-07] MEDS: Floranex Packet PO SCH (08:53)
[2017-12-07] MEDS: Aspirin 81 mg Enteric Coated Tablet PO SCH (08:53)
[2017-12-07] MEDS: Lisinopril 10 MG TAB PO SCH (08:53)
[2017-12-07] MEDS: guaiFENesin ER 600 MG TAB PO SCH ×2 (08:53→20:19)
[2017-12-07] MEDS: clonazePAM 1 MG TAB PO SCH ×2 (08:54→20:19)
[2017-12-07] MEDS: Famotidine 20 MG TAB PO SCH ×2 (08:54→20:22)
[2017-12-07] MEDS: Carvedilol 3.125 MG TAB PO SCH ×2 (08:55→20:22)
[2017-12-07] MEDS: Hydrochlorothiazide 25 MG TAB PO SCH (08:55)
[2017-12-07] MEDS: Doxycycline Hyclate 100 MG TAB PO SCH ×2 (08:55→20:22)
[2017-12-07] MEDS: Loratadine 10 MG TAB PO SCH (08:55)
[2017-12-07] MEDS: Mometasone/Formoterol 60 PUFF AER INH SCH ×2 (08:56→21:34)
[2017-12-07] MEDS: traMADol HCl 50 MG TAB PO PRN (13:47)
[2017-12-07] MEDS: Atorvastatin Calcium 40 MG TAB PO SCH (20:20)
[2017-12-07] MEDS: Montelukast Sodium 10 mg Tablet PO SCH (20:21)
[2017-12-07] MEDS: Cyclobenzaprine 10 MG TAB PO PRN (20:22)
[2017-12-08] MEDS: Ipratropium Bromide 2.5 ml Neb NEB SCH ×4 (01:10→17:18)
[2017-12-08] MEDS ORDERED: methylPREDNISolone 4 mg Tablet PO SCH (08:00)
[2017-12-08] MEDS: Hydrochlorothiazide 25 MG TAB PO SCH (08:27)
[2017-12-08] MEDS: Loratadine 10 MG TAB PO SCH (08:27)
[2017-12-08] MEDS: Aspirin 81 mg Enteric Coated Tablet PO SCH (08:27)
[2017-12-08] MEDS: DULoxetine 30 MG CAP PO SCH ×2 (08:27→21:04)
[2017-12-08] MEDS: Floranex Packet PO SCH (08:27)
[2017-12-08] MEDS: Carvedilol 3.125 MG TAB PO SCH ×2 (08:28→21:03)
[2017-12-08] MEDS: Doxycycline Hyclate 100 MG TAB PO SCH ×2 (08:28→21:06)
[2017-12-08] MEDS: Lisinopril 10 MG TAB PO SCH ×2 (08:28→13:53)
[2017-12-08] MEDS: Famotidine 20 MG TAB PO SCH ×2 (08:28→21:06)
[2017-12-08] MEDS: guaiFENesin ER 600 MG TAB PO SCH ×2 (08:29→21:05)
[2017-12-08] MEDS: clonazePAM 1 MG TAB PO SCH ×2 (08:29→21:06)
[2017-12-08] MEDS: Mometasone/Formoterol 60 PUFF AER INH SCH ×2 (08:30→21:49)
[2017-12-08] MEDS: Atorvastatin Calcium 40 MG TAB PO SCH (21:04)
[2017-12-08] MEDS: Montelukast Sodium 10 mg Tablet PO SCH (21:05)
[2017-12-09] MEDS: Ipratropium Bromide 2.5 ml Neb NEB SCH ×4 (01:51→17:24)
[2017-12-09] MEDS: Famotidine 20 MG TAB PO SCH ×2 (08:04→21:02)
[2017-12-09] MEDS: DULoxetine 30 MG CAP PO SCH ×2 (08:04→21:02)
[2017-12-09] MEDS: Carvedilol 3.125 MG TAB PO SCH ×2 (08:04→21:02)
[2017-12-09] MEDS: Doxycycline Hyclate 100 MG TAB PO SCH ×2 (08:04→21:02)
[2017-12-09] MEDS: Aspirin 81 mg Enteric Coated Tablet PO SCH (08:04)
[2017-12-09] MEDS: Loratadine 10 MG TAB PO SCH (08:04)
[2017-12-09] MEDS: clonazePAM 1 MG TAB PO SCH ×2 (08:04→21:04)
[2017-12-09] MEDS: Floranex Packet PO SCH (08:04)
[2017-12-09] MEDS: guaiFENesin ER 600 MG TAB PO SCH ×2 (08:05→21:04)
[2017-12-09] MEDS: Hydrochlorothiazide 25 MG TAB PO SCH (08:06)
[2017-12-09] MEDS: Lisinopril 10 MG TAB PO SCH (08:06)
[2017-12-09] MEDS: Mometasone/Formoterol 60 PUFF AER INH SCH ×2 (08:07→21:04)
[2017-12-09] MEDS: traMADol HCl 50 MG TAB PO PRN ×2 (08:16→15:57)
[2017-12-09] MEDS: Montelukast Sodium 10 mg Tablet PO SCH (21:02)
[2017-12-09] MEDS: Atorvastatin Calcium 40 MG TAB PO SCH (21:03)
[2017-12-10] MEDS: Ipratropium Bromide 2.5 ml Neb NEB SCH ×4 (01:01→18:42)
[2017-12-10] MEDS: Mometasone/Formoterol 60 PUFF AER INH SCH ×2 (09:10→20:44)
[2017-12-10] MEDS: Famotidine 20 MG TAB PO SCH ×2 (09:14→20:48)
[2017-12-10] MEDS: guaiFENesin ER 600 MG TAB PO SCH ×2 (09:14→20:48)
[2017-12-10] MEDS: Floranex Packet PO SCH (09:14)
[2017-12-10] MEDS: DULoxetine 30 MG CAP PO SCH ×2 (09:14→20:46)
[2017-12-10] MEDS: Doxycycline Hyclate 100 MG TAB PO SCH ×2 (09:14→20:48)
[2017-12-10] MEDS: Carvedilol 3.125 MG TAB PO SCH ×2 (09:15→17:58)
[2017-12-10] MEDS: Lisinopril 10 MG TAB PO SCH (09:15)
[2017-12-10] MEDS: clonazePAM 1 MG TAB PO SCH ×2 (09:15→20:47)
[2017-12-10] MEDS: Loratadine 10 MG TAB PO SCH (09:16)
[2017-12-10] MEDS: Aspirin 81 mg Enteric Coated Tablet PO SCH (09:16)
[2017-12-10] MEDS: Hydrochlorothiazide 25 MG TAB PO SCH (09:16)
[2017-12-10 10:21] VITALS: BMI 43.0
[2017-12-10] MEDS: traMADol HCl 50 MG TAB PO PRN (11:47)
[2017-12-10] MEDS: Atorvastatin Calcium 40 MG TAB PO SCH (20:46)
[2017-12-10] MEDS: Montelukast Sodium 10 mg Tablet PO SCH (20:48)
[2017-12-11] MEDS: Ipratropium Bromide 2.5 ml Neb NEB SCH ×4 (01:40→17:35)
[2017-12-11] MEDS: clonazePAM 1 MG TAB PO SCH ×2 (08:50→20:36)
[2017-12-11] MEDS: Carvedilol 3.125 MG TAB PO SCH ×2 (08:52→17:35)
[2017-12-11] MEDS: Aspirin 81 mg Enteric Coated Tablet PO SCH (08:52)
[2017-12-11] MEDS: DULoxetine 30 MG CAP PO SCH ×2 (08:52→20:34)
[2017-12-11] MEDS: Loratadine 10 MG TAB PO SCH (08:52)
[2017-12-11] MEDS: Doxycycline Hyclate 100 MG TAB PO SCH ×2 (08:52→20:35)
[2017-12-11] MEDS: Hydrochlorothiazide 25 MG TAB PO SCH (08:53)
[2017-12-11] MEDS: Floranex Packet PO SCH (08:53)
[2017-12-11] MEDS: guaiFENesin ER 600 MG TAB PO SCH ×2 (08:53→20:34)
[2017-12-11] MEDS: Famotidine 20 MG TAB PO SCH ×2 (08:53→20:36)
[2017-12-11] MEDS: Mometasone/Formoterol 60 PUFF AER INH SCH ×2 (08:54→20:30)
[2017-12-11] MEDS: Lisinopril 10 MG TAB PO SCH (09:00)
[2017-12-11] MEDS: traMADol HCl 50 MG TAB PO PRN (17:40)
[2017-12-11] MEDS: Atorvastatin Calcium 40 MG TAB PO SCH (20:35)
[2017-12-11] MEDS: Cyclobenzaprine 10 MG TAB PO PRN (20:36)
[2017-12-11] MEDS: Montelukast Sodium 10 mg Tablet PO SCH (20:37)
[2017-12-12] MEDS: Ipratropium Bromide 2.5 ml Neb NEB SCH ×4 (01:59→18:30)
[2017-12-12] MEDS: Mometasone/Formoterol 60 PUFF AER INH SCH ×2 (08:09→20:52)
[2017-12-12] MEDS: Lisinopril 10 MG TAB PO SCH (08:10)
[2017-12-12] MEDS: guaiFENesin ER 600 MG TAB PO SCH ×2 (08:11→20:52)
[2017-12-12] MEDS: clonazePAM 1 MG TAB PO SCH ×2 (08:12→20:52)
[2017-12-12] MEDS: Famotidine 20 MG TAB PO SCH ×2 (08:12→20:52)
[2017-12-12] MEDS: DULoxetine 30 MG CAP PO SCH ×2 (08:12→20:52)
[2017-12-12] MEDS: Loratadine 10 MG TAB PO SCH (08:12)
[2017-12-12] MEDS: Aspirin 81 mg Enteric Coated Tablet PO SCH (08:13)
[2017-12-12] MEDS: Carvedilol 3.125 MG TAB PO SCH ×2 (08:13→17:32)
[2017-12-12] MEDS: Floranex Packet PO SCH (08:13)
[2017-12-12] MEDS: Hydrochlorothiazide 25 MG TAB PO SCH (08:13)
[2017-12-12] MEDS: Montelukast Sodium 10 mg Tablet PO SCH (20:52)
[2017-12-12] MEDS: Atorvastatin Calcium 40 MG TAB PO SCH (20:52)
[2017-12-12] MEDS: traMADol HCl 50 MG TAB PO PRN (21:07)
[2017-12-13] MEDS: Ipratropium Bromide 2.5 ml Neb NEB SCH ×3 (01:55→12:36)
[2017-12-13 06:17] VITALS: TEMP 98.1
[2017-12-13] MEDS: Mometasone/Formoterol 60 PUFF AER INH SCH (08:19)
[2017-12-13] MEDS: Carvedilol 3.125 MG TAB PO SCH (08:25)
[2017-12-13] MEDS: Floranex Packet PO SCH (08:25)
[2017-12-13] MEDS: clonazePAM 1 MG TAB PO SCH (08:26)
[2017-12-13] MEDS: DULoxetine 30 MG CAP PO SCH (08:26)
[2017-12-13] MEDS: Aspirin 81 mg Enteric Coated Tablet PO SCH (08:27)
[2017-12-13] MEDS: Loratadine 10 MG TAB PO SCH (08:27)
[2017-12-13] MEDS: Famotidine 20 MG TAB PO SCH (08:27)
[2017-12-13] MEDS: Lisinopril 10 MG TAB PO SCH (08:27)
[2017-12-13 08:28] VITALS: BP 108/71
[2017-12-13] MEDS: guaiFENesin ER 600 MG TAB PO SCH (08:28)
[2017-12-13] MEDS: traMADol HCl 50 MG TAB PO PRN (08:34)
== END 2017-12-13 14:45 | DRG 57 ==
LOC: BURMED 17:05
PROVIDERS: ADMIT Family Medicine; ATTEND Family Medicine
DX: I69.320 Aphasia following cerebral infarction (principal); I50.32 Chronic diastolic (congestive) heart failure; J96.11 Chronic respiratory failure with hypoxia; I13.0 Hypertensive heart and chronic kidney disease with heart failure and stage 1 through stage 4 chronic kidney disease, or unspecified chronic kidney disease; Z68.41 Body mass index [BMI] 40.0-44.9, adult; I69.319 Unspecified symptoms and signs involving cognitive functions following cerebral infarction; J44.9 Chronic obstructive pulmonary disease, unspecified; Z79.82 Long term (current) use of aspirin; I25.10 Atherosclerotic heart disease of native coronary artery without angina pectoris; F32.9 Major depressive disorder, single episode, unspecified; F41.9 Anxiety disorder, unspecified; Z86.718 Personal history of other venous thrombosis and embolism; Z79.01 Long term (current) use of anticoagulants; E78.5 Hyperlipidemia, unspecified; N18.3 Chronic kidney disease, stage 3 (moderate); R00.0 Tachycardia, unspecified; Z88.1 Allergy status to other antibiotic agents; Z88.0 Allergy status to penicillin; Z88.8 Allergy status to other drugs, medicaments and biological substances; Z87.891 Personal history of nicotine dependence; E66.9 Obesity, unspecified; E11.22 Type 2 diabetes mellitus with diabetic chronic kidney disease; Z79.4 Long term (current) use of insulin
CPT/HCPCS: 36416; 94664; G8985-GP-CH; G8987-GO-CJ; G8988-GO-CI; G8996-GN-CH; G8997-GN-CH; J7644

== ENCOUNTER 2018-01-12 20:06 | Emergency (ER) | payer MEDICARE | END 2018-01-12 21:48 | LOC: BURERS 20:06 | DX: F41.9 Anxiety disorder, unspecified (principal); I13.0 Hypertensive heart and chronic kidney disease with heart failure and stage 1 through stage 4 chronic kidney disease, or unspecified chronic kidney disease; I50.9 Heart failure, unspecified; N18.3 Chronic kidney disease, stage 3 (moderate); F32.9 Major depressive disorder, single episode, unspecified; E78.5 Hyperlipidemia, unspecified; J44.9 Chronic obstructive pulmonary disease, unspecified; G47.30 Sleep apnea, unspecified; I25.10 Atherosclerotic heart disease of native coronary artery without angina pectoris; Z86.73 Personal history of transient ischemic attack (TIA), and cerebral infarction without residual deficits; Z79.4 Long term (current) use of insulin; Z79.899 Other long term (current) drug therapy; Z79.82 Long term (current) use of aspirin; Z79.891 Long term (current) use of opiate analgesic | CPT/HCPCS: 99283 ==

== ENCOUNTER 2019-05-07 19:15 | Emergency (ER) | payer MEDICARE ==
[2019-05-07] MEDS ORDERED: methylPREDNISolone Sod Succ/PF 125 MG/2 ML VIAL ONE (19:36)
--- NOTE | 2019-05-07 19:49 | RAD ---
EXAM: CHEST ONE VIEW HISTORY: Shortness of breath, COPD. COMPARISON: 11/29/2017 FINDINGS: Cardiac silhouette is magnified by projection but does appear enlarged and stable in size compared to prior study. Pulmonary vasculature is within normal limits. There is suboptimal evaluation the left lung base due to overlying soft tissue density and the enlarged cardiac silhouette. The lungs ar e otherwise clear bilaterally. A loop recording device overlies the left mid chest. Degenerative changes are seen in the spine. Chest is overall stable compared to the prior exam. IMPRESSION: 1. Suboptimal evaluation left lung base, there is otherwise no acute cardiopulmonary process. 2. Cardiomegaly.
[2019-05-07 20:01] LABS: ALT (SGPT) 13 U/L (8-55); AST (SGOT) 15 U/L (5-34); Albumin 4.2 g/dL (3.4-4.8); Alkaline Phosphatase 69 U/L (40-110); Anion Gap 16 mmol/L (10-20); BUN (Urea Nitrogen) 11 mg/dL (9.8-20.1); Bilirubin, Total 0.9 mg/dL (0.2-1.2); Calc. Creatinine Clearance 0 mL/min (70-130); Calcium 9.5 mg/dL (7.8-10.44); Carbon Dioxide 28 mmol/L (23-31); Chloride 99 mmol/L (98-107); Estimated GFR-MDRD 52; Globulin 3.5 g/dL (2.4-3.5); Glucose 158 mg/dL (80-115); Potassium 3.8 mmol/L (3.5-5.1); Protein, Total 7.7 g/dL (6.0-8.3); Sodium 139 mmol/L (136-145)
[2019-05-07 20:04] LABS: Base Excess-Venous 2.2 mmol/L (-2.0 to 3.0); Bicarbonate (HCO3v) 29.2 mmol/L (22.0-28.0); Calcium, Ionized 1.13 mmol/L (See Comments:); Chloride 99 mmol/L (98-107); Hemoglobin - Calc 14.9 g/dL (12.0-16.0); Potassium 3.7 mmol/L (3.5-5.1); Sodium 137 mmol/L (138-145); T. Carbon Dioxide 30.9 mmol/L (22.0-28.0); vO2 Saturation-calc 98.6 % (60.0-85.0)
[2019-05-07 20:12] LABS: Lymphocytes 11 % (21-51); MDiff Complete? YES; Mean Corpuscular HGB CONC 31.1 g/dL (32.0-36.0); Mean Corpuscular Hemoglobin 30.4 pg (27.0-31.0); Mean Corpuscular Volume 97.9 fL (78.0-98.0); Mean Platelet Volume 8.7 fL (7.4-10.4); Monocytes 3 % (0-10); Neutrophil 85 % (42-75); Platelet Count 242 thou/uL (130-400); Platelet Morphology Comment Appears Adequate; RBC Distribution Width 12.7 % (11.5-14.5); RBC Morphology Normal; Reactive Lymphocytes 1 % (0-10); Red Blood Cell (RBC) Count 4.28 mill/uL (4.20-5.40); White Blood Cell (WBC) Count 23.3 thou/uL (4.8-10.8)
[2019-05-07] MEDS ORDERED: Azithromycin 500 MG VIAL ONE (20:53)
[2019-05-07] MEDS ORDERED: Lorazepam 2 MG/ML VIAL ONE (21:05)
== END 2019-05-07 20:13 | disposition short-term general hospital (02) ==
LOC: BURERS 19:15
DX: J44.1 Chronic obstructive pulmonary disease with (acute) exacerbation (principal); I25.10 Atherosclerotic heart disease of native coronary artery without angina pectoris; I13.0 Hypertensive heart and chronic kidney disease with heart failure and stage 1 through stage 4 chronic kidney disease, or unspecified chronic kidney disease; I50.9 Heart failure, unspecified; N18.3 Chronic kidney disease, stage 3 (moderate); G47.30 Sleep apnea, unspecified; Z86.73 Personal history of transient ischemic attack (TIA), and cerebral infarction without residual deficits; E78.5 Hyperlipidemia, unspecified; E78.00 Pure hypercholesterolemia, unspecified; E11.22 Type 2 diabetes mellitus with diabetic chronic kidney disease; I10 Essential (primary) hypertension; F41.9 Anxiety disorder, unspecified; F32.9 Major depressive disorder, single episode, unspecified; Z87.891 Personal history of nicotine dependence; Z79.899 Other long term (current) drug therapy; Z79.82 Long term (current) use of aspirin; Z79.4 Long term (current) use of insulin; Z79.51 Long term (current) use of inhaled steroids
CPT/HCPCS: 36416; 71045; 80053; 82330; 82435; 82803; 83605; 83880; 84132; 84295; 84484; 85014; 85025; 87804; 93005; 94660; 96365; 96375; J0456; J2060; J2930; J7620